=== PATIENT | female | born 1960 | race Caucasian/White ===

== ENCOUNTER 2016-04-06 17:12 | Emergency (ER) | payer BC ==
--- OUTSIDE RECORDS SUMMARY | 2016-04-06 18:37 | XMS REPORT | Continuity of Care Document ---
:1960 Author Organization [facility] ([facility]) Address [place] [address] Phone [phone] Care Team Providers Name Role Phone Eufemia Schimd Primary Care Provider [phone] Source Comments This disclosure is being made pursuant to the Care Everywhere program, applicable federal and state laws, and may not contain all informaitonavailable regarding this patient.[facility] ([facility]) Active Allergies and Adverse Reactions Allergen Noted Date Severity Reactions Comments Adhesive 06/14/2014 OTHER Modafinil 11/26/2011 Urticaria (Hives) Sulfadoxine Urticaria (Hives) Current Medications Prescription Sig. Disp. Refills Start Date End Date Status escitalopram (LEXAPRO) Take 40 mg by Active 20 mg tablet mouth daily. FLAXSEED OIL PO Take 3,600 Units Active by mouth 2 times daily. cholecalciferol Take 2,000 Units Active (VITAMIN D3) 2,000 unit by mouth daily. tablet Docusate Sodium 100 mg Take 100 mg by Active Tab mouth 3 times daily. multivitamin tablet Take 1 Tab by Active mouth daily. CALCIUM CARBONATE Take 2 Tabs by Active (CORAL CALCIUM PO) mouth 2 times daily. gabapentin 600 mg Take 1,200 mg by Active tablet mouth 2 times daily. Take 1200 ng in AM and 600 mg at 2 PM and 600 mg at 6 PM mirabegron (MYRBETRIQ) Take 1 Tab by 30 Tab 11 06/24/2014 Active 25 mg XR tablet mouth daily. May increase to 50 mg (2 tab) daily if needed after 1 week. Indications: BLADDER HYPERACTIVITY, URINARY URGENCY TECFIDERA 240 mg XR 11/02/2014 Active capsule Gauze Bandage 4 X 4 " 4x4 drain sponge 60 Each 6 01/11/2015 Active spge topiramate 25 mg tablet 02/10/2015 Active carBAMazepine (TEGretol Take 100 mg by Active XR) 100 mg SR tablet mouth 2 times daily. HYDROcodone-acetaminoph Take 1-2 tablets 30 tablet 0 07/22/2015 Active en 5-325 mg per tablet by mouth every 4 hours as needed. OTHER Please dispense 8 Each 11 08/05/2015 Active 4-8 leg bag extension tubing per month. Dx: urinary retention, chronic SPTDuration: lifetimeRefills: 11 nitrofurantoin Take 100 mg by Active (MACROBID) 100 mg mouth daily. capsule gentamicin 0.04% Irrigate 60 mL by 500 mL 11 12/15/2015 Active irrigation solution irrigation daily. OTHER Tysarvi 300 MG Active taken every 4 weeks. Drainage Bag misc Tillman catheter 20 Each 11 12/26/2015 Active leg drainage bag and overnight large drainage bag Active Problems Problem Noted Date Chronic retention of urine 06/02/2015 Multiple sclerosis 06/02/2015 Recurrent UTI 04/13/2013 Neurogenic bladder 04/13/2013 Spasticity 12/04/2011 Resolved Problems Problem Noted Date Resolved Date Gait instability 06/12/2013 06/12/2013 Most Recent Encounters Date Type Specialty Providers Description 03/08/2016 Office Visit Urology Wendy Navarro MD Subj: Upcoming Appt Reminder 01/13/2016 Telephone Urology Wendy Navarro MD Dx: Urinary retention (Primary Dx) Social History Tobacco Use Types Packs/Day Years Used Date Never Smoker Smokeless Tobacco: Never Used Tobacco Cessation:Counseling Given: Yes Comments: Alcohol Use Drinks/Week oz/Week Comments No Last Filed Vital Signs Vital Sign Reading Time Taken Blood Pressure 86/60 12/15/2015 3:01 PM CDT Pulse 76 12/15/2015 3:01 PM CDT Temperature 35.8 C (96.4 F) 12/15/2015 3:01 PM CDT Respiratory Rate 18 07/22/2015 4:00 PM CDT Height 1.753 m (5' 9") 07/22/2015 9:00 AM CDT Weight 68.04 kg (150 lb) 07/22/2015 9:00 AM CDT Body Mass Index 22.14 07/22/2015 9:00 AM CDT Oxygen Saturation 96% 07/22/2015 2:45 PM CDT Plan of Care Date Type Specialty Providers Description 04/12/2016 Appointment Radiology Subj: Appointment Rescheduled 04/12/2016 Appointment Urology Wendy Navarro MD Subj: Appointment [address] [facility] [place] [address] [phone] (Fax) 05/31/2016 Appointment Neurosurgery Heather Long MD [address] [place] [address] [phone] (Fax) Subj: Appointment Luzma Desai ARNP [address] [place] [address] [phone] (Fax) Scheduled Health Maintenance Due Date Last Done Comments HCV Screening 1960 Hepatitis B Vaccine (1 of 3 - Primary Series) 1960 Tdap Vaccine 09/02/1971 Lipid Disorder Screening 1978 MMR Vaccine 1978 Td Vaccine 1978 Cervical Cancer Screening 1990 Mammogram 2000 Colonoscopy 2010 Influenza Vaccine: Seasonal (#1) 09/26/2015 Results from Last 3 Months Not on file
--- NOTE | 2016-04-06 18:42 | ERNOTE ---
Medical Problem HPI - Narrative Date of Service: 04/06/16 - General Chief Complaint: General Assessment Time Seen by Provider: 04/06/16 18:30 Source: patient, RN notes reviewed Exam Limitations: no limitations - Immun/Allergies/Home Medications Immunizations: IMMUNIZATION HX Immunizations Up to Date Yes History of Influenza Vaccine No Hx Pneumococcal Vaccination No Allergies/Adverse Reactions: Allergies modafinil [From Provigil] Allergy (Intermediate, Verified 04/06/16 17:55) Hives Sulfa (Sulfonamide Antibiotics) [Sulfa(Sulfonamide Antibiotics)] Allergy (Mild, Verified 04/06/16 17:55) Hives Home Medications: HOME MEDICATIONS Baclofen 20 mg PO TID PRN 12/25/12 [Last Taken 05/01/15 08:00] Escitalopram Oxalate [Lexapro] 40 mg PO DAILY 12/25/12 [Last Taken 05/01/15 08: 00] Flaxseed Oil [Flax Oil] 3,600 mg PO BID 12/25/12 [Last Taken 05/01/15 08:00] HYDROcodone/ACETAMINOPHEN [[place] 5-325] 1 each PO Q4H PRN #30 tablet 04/20/14 [ Last Taken 11/15/15 23:00 2 tab] Mirabegron [Myrbetriq] 25 mg PO BID 07/11/14 [Last Taken 05/01/15 08:00] Gabapentin [Neurontin] 1,200 mg PO BID 07/13/14 [Last Taken 05/01/15 08:00] Topiramate [Topamax] 25 mg PO BID #0 04/28/15 [Last Taken 05/01/15 08:00] Calcium Carb&Cit/Mag12/Vit D3 [Calcium 500 mg Tablet] 1 each PO BID 08/25/15 [ Last Taken Unknown] Multivitamin [One Daily Essential] 1 each PO DAILY 08/25/15 [Last Taken Unknown] Cholecalciferol [Vitamin D] 5,000 unit PO DAILY 08/26/15 [Last Taken Unknown] Oxybutynin Chloride [Ditropan Xl] 10 mg PO PRN PRN 11/16/15 [Last Taken Unknown] Natalizumab [Tysabri (NATALIZUMAB)] 300 mg IV 04/06/16 [Last Taken Unknown] - History of Present History Narrative: Meliza is a 55 year old female who presents to the ED for a headache and body aches that began during the night last night. She took [place] during the night with some improvement. She reports that her is sick with a cough. She denies any associated symptoms. She is wheelchair bound d/t MS. Review of Systems - Review of Systems Constitutional: Present: fatigue, malaise. Absent: fever, chills EYE: Present: no symptoms reported ENT: Absent: ear pain, nose congestion, sore throat Respiratory: Absent: shortness of breath, cough Cardiology: Absent: chest pain, edema Gastrointestinal/Abdominal: Absent: nausea, vomiting, diarrhea Genitourinary: Present: no symptoms reported Musculoskeletal: Present: muscle pain, joint pain Skin: Absent: rash, lesions Neurological: Present: headache. Absent: dizziness/light-headedness Endocrine: Present: no symptoms reported Hematologic/Lymphatic: Present: no symptoms reported Psych: Present: no symptoms reported - Patient's Past Medical History Patient History - Medical: Anxiety, Depression, GERD, UTI'S, Other - Multiple Sclerosis Patient History - Cardiac/Respiratory: No pertinent hx Patient History - Cancer: No Hx of Cancer Patient History - Surgical Procedures: Colonoscopy, Hysterectomy Patient History - Other: None - Family History Mother Family History - Medical: Alzheimer's Disease, Seizures Family History - Cardiac/Respiratory: Hypertension Father Family History - Medical: Family History - Cardiac/Respiratory: Asthma - Social History Living Situations: spouse Abuse History: No History of abuse Psych History: Hx of Anxiety, Hx of Depression, Current tx/ever been on anti- depressants or anti-anxiety meds Smoking Status: Never smoker Alcohol Use: none Drug Use: none - Immunizations Immunizations Up to Date: Yes Hx Pneumococcal Vaccination: No History of Influenza Vaccine: No Physical Exam - Physical Exam General Appearance: Present: wd/wn, alert, no apparent distress, other - wheelchair bound Eye Exam: Normal inspection: bilateral Ears, Nose, Throat: Present: normal ENT inspection, hearing grossly normal, normal pharynx Neck: Present: normal inspection, nontender, supple Respiratory: Present: no respiratory distress, normal breath sounds, no accessory muscle use, lungs clear Cardiovascular/Chest: Present: regular rate, rhythm, no murmur Gastrointestinal/Abdominal: Present: nontender, nondistended, soft Extremity Exam: Present: normal inspection, non-tender, no edema Neurological Exam: Present: alert, oriented, normal mood/affect Skin Exam: Present: normal color, warm/dry ED Progress - Results and Orders Patient's Lab Results:: I have reviewed the patient's lab results. - Vital Signs Patient's Vital Signs:: I have reviewed the patient's vital signs. Vital Signs: Vital Signs 04/06/16 17:46 Temperature 36.0 C L Pulse Rate 85 Respiratory 16 Rate Blood Pressure 91/68 O2 Sat by Pulse 98 Oximetry - Progress/Reassessment Chief Complaint: General Assessment Progress:: Unchanged Progress Note-Subjective: Labwork unremarkable, suspect viral syndrome vs. MS exacerbation Departure - Departure Clinical Impression: Body aches, Malaise and fatigue, Multiple sclerosis, primary chronic progressive Disposition: Home Follow Up Needed Condition: Stable Additional Instructions: Continue your routine medications Follow up as needed Referrals: Eufemia Schmid MD [Primary Care Provider] -
[2016-04-06 18:57] LABS: Hematocrit 40.7 % (37.0-47.0); Hemoglobin 13.5 gm/dL (12.5-16.0); Mean Cell Volume 88.9 fl (78-100); Mean Corpuscular Hemoglobin 29.5 pg (27-31); Mean Corpuscular Hgb Conc 33.2 g/dl (32-36); Mean Platelet Volume 9.1 fl (6.0-9.5); Neutrophil # 2.5 K/mm3 (1.3-6.0); Neutrophil % 49.8 % (42-75.0); Platelet Count 281 K/mm3 (150-450); Red Blood Count 4.58 M/mm3 (4.2-5.4); Red Cell Distribution Width 13.3 % (11.5-14.0)
[2016-04-06 19:24] LABS: Albumin * 3.8 gm/dl (3.4-5.0); Anion Gap 9.7 mmol/L (6.8-13.8); BUN/Creatinine Ratio 28.3 (9.0-21.6); Bilirubin, Total 0.3 mg/dL (0.0-1.1); Ca. Corrected For Albumin 9.2 mg/dL (8.4-10.2); Calcium * 9.4 mg/dL (7.9-10.9); Carbon Dioxide 31.9 mmol/L (24-32.6); Potassium 3.6 mmol/L (3.4-4.6); Total Protein 6.7 gm/dL (6.2-8.2)
[2016-04-06 20:12] VITALS: BP 119/69
== END 2016-04-06 20:14 | disposition home or self-care (01) ==
LOC: ER 17:12
DX: G35 Multiple sclerosis (principal); R53.81 Other malaise; R53.83 Other fatigue; R52 Pain, unspecified

== ENCOUNTER 2016-05-30 12:17 | Emergency (ER) | payer BC ==
[2016-05-30 12:29] VITALS: BP 110/72
[2016-05-30] MEDS ORDERED: PROMETHAZINE HCL 50 MG/ML AMPUL IM ONE ×2 (13:03→13:06)
[2016-05-30] MEDS ORDERED: MEPERIDINE HCL/PF 75 MG/ML SYRG IM ONE (13:03)
--- NOTE | 2016-05-30 13:04 | ERNOTE ---
ER Female HPI Date of Service: 05/30/16 Stated Complaint: UTI Presenting Symptoms: other - Hematuria Time Seen by Provider: 05/30/16 12:53 Source: patient, family, RN notes reviewed Exam Limitations: no limitations Immunizations: IMMUNIZATION HX Immunizations Up to Date Yes History of Influenza Vaccine No Hx Pneumococcal Vaccination No Allergies/Adverse Reactions: Allergies modafinil [From Provigil] Allergy (Intermediate, Verified 04/06/16 17:55) Hives Sulfa (Sulfonamide Antibiotics) [Sulfa(Sulfonamide Antibiotics)] Allergy (Mild, Verified 04/06/16 17:55) Hives Home Medications: HOME MEDICATIONS Baclofen 20 mg PO TID PRN 12/25/12 [Last Taken 05/01/15 08:00] Escitalopram Oxalate [Lexapro] 40 mg PO DAILY 12/25/12 [Last Taken 05/01/15 08: 00] Flaxseed Oil [Flax Oil] 3,600 mg PO BID 12/25/12 [Last Taken 05/01/15 08:00] HYDROcodone/ACETAMINOPHEN [[place] 5-325] 1 each PO Q4H PRN #30 tablet 04/20/14 [ Last Taken 11/15/15 23:00 2 tab] Mirabegron [Myrbetriq] 25 mg PO BID 07/11/14 [Last Taken 05/01/15 08:00] Gabapentin [Neurontin] 1,200 mg PO BID 07/13/14 [Last Taken 05/01/15 08:00] Topiramate [Topamax] 25 mg PO BID #0 04/28/15 [Last Taken 05/01/15 08:00] Calcium/Magnesium/Vit D3 [Calcium 500 mg Tablet] 1 each PO BID 08/25/15 [Last Taken Unknown] Multivitamin [One Daily Essential] 1 each PO DAILY 08/25/15 [Last Taken Unknown] Cholecalciferol [Vitamin D] 5,000 unit PO DAILY 08/26/15 [Last Taken Unknown] Oxybutynin Chloride [Ditropan Xl] 10 mg PO PRN PRN 11/16/15 [Last Taken Unknown] Natalizumab [Tysabri (NATALIZUMAB)] 300 mg IV 04/06/16 [Last Taken Unknown] - History of Present Illness Narrative: 55 y/o female brought to the ED in her wheelchair by her for hematuria. She noticed a lot of blood in her urine last evening. She has been on Cipro for 5 days for a UTI. She has a suprapubic catheter that was due to be changed today. Her culture grew pseudomonas that was sensitive to the Cipro. She is having pain in her right flank region. She reports that her urine was damaris colored this morning without any visible blood. She denies any other symptoms. Prior Abdominal Problems: Present: similar symptoms Associated Symptoms: Absent: fever/chills, nausea, vomiting, abdominal pain Prior Treatment: Present: treated by physician, currently on antibiotics Review of Systems - Review of Systems Constitutional: Present: fatigue, malaise. Absent: fever, chills EYE: Present: no symptoms reported ENT: Present: no symptoms reported Respiratory: Present: no symptoms reported Cardiology: Present: no symptoms reported Gastrointestinal/Abdominal: Absent: nausea, vomiting, abdominal pain, eating less, drinking less Genitourinary: Present: hematuria. Absent: decreased urinary output Musculoskeletal: Present: back pain, muscle pain Skin: Absent: rash, lesions, lumps Neurological: Absent: headache, dizziness/light-headedness Endocrine: Present: no symptoms reported Hematologic/Lymphatic: Present: no symptoms reported Psych: Present: no symptoms reported - Patient's Past Medical History Patient History - Medical: Anxiety, Depression, GERD, UTI'S, Other Patient History - Cardiac/Respiratory: No pertinent hx Patient History - Cancer: No Hx of Cancer Patient History - Surgical Procedures: Colonoscopy, Hysterectomy Patient History - Other: None - Family History Mother Family History - Medical: Alzheimer's Disease, Seizures Family History - Cardiac/Respiratory: Hypertension Father Family History - Medical: Family History - Cardiac/Respiratory: Asthma - Social History Living Situations: spouse Abuse History: No History of abuse Psych History: Hx of Anxiety, Hx of Depression, Current tx/ever been on anti- depressants or anti-anxiety meds Alcohol Use: none Drug Use: none - Immunizations Immunizations Up to Date: Yes Hx Pneumococcal Vaccination: No History of Influenza Vaccine: No Physical Exam - Physical Exam General Appearance: Present: wd/wn, alert, no apparent distress, other - appears uncomfortable Respiratory: Present: no respiratory distress, normal breath sounds, no accessory muscle use, lungs clear Cardiovascular/Chest: Present: regular rate, rhythm, no murmur, normal peripheral pulses Gastrointestinal/Abdominal: Present: normal bowel sounds, nondistended, soft Back Exam: Present: CVA tenderness (R). Absent: CVA tenderness (L) Neurological Exam: Present: alert, oriented, normal mood/affect Skin Exam: Present: normal color, warm/dry ED Progress - Results and Orders Patient's Lab Results:: I have reviewed the patient's lab results. - Vital Signs Patient's Vital Signs:: I have reviewed the patient's vital signs. Vital Signs: Vital Signs 05/30/16 12:23 Temperature 36.4 C L Pulse Rate 85 Respiratory 16 Rate Blood Pressure 110/72 O2 Sat by Pulse 98 Oximetry - Progress/Reassessment Chief Complaint: Genitourinary Problem Progress:: Improved Plan - Plan Plan: Pain improved with Demerol and Phenergan. UA remains abnormal, but as catheter is due to be changed today I contacted lab to cancel the culture. Dr. Schmid' s office contacted regarding outpatient order to repeat the urine when the catheter is changed later today or tomorrow. Patient to continue Cipro for now. Departure Clinical Impression: UTI (urinary tract infection) due to urinary indwelling catheter Qualifiers: Indwelling urinary catheter type: cystostomy catheter Encounter type: sequela Qualified Code(s): T83.510S - Infection and inflammatory reaction due to cystostomy catheter, sequela - Departure Disposition: Home Follow Up Needed Condition: Stable Instructions: Catheter-Associated Urinary Tract Infection FAQs - WALKER Additional Instructions: Continue Cipro for now Bring in new urine sample when catheter is changed Referrals: Eufemia Schmid MD [Primary Care Provider] -
[2016-05-30] MEDS ORDERED: MEPERIDINE HCL/PF 75 MG/ML SYRG ONE (13:06)
--- OUTSIDE RECORDS SUMMARY | 2016-05-30 13:11 | XMS REPORT | Continuity of Care Document ---
:1960 Author Organization [facility] ([facility]) Address [place] [address] Phone [phone] Care Team Providers Name Role Phone Eufemia Schmid Primary Care Provider [phone] Source Comments This disclosure is being made pursuant to the Care Everywhere program, applicable federal and state laws, and may not contain all informaitonavailable regarding this patient.[facility] ([facility]) Active Allergies and Adverse Reactions Allergen Noted Date Severity Reactions Comments Adhesive 06/14/2014 OTHER Fosfomycin Tromethamine 04/30/2016 OTHER Causes GI upset Modafinil 11/26/2011 Urticaria (Hives) Provigil Sulfadoxine Urticaria (Hives) Current Medications Prescription Sig. Disp. Refills Start Date End Date Status escitalopram Take 40 mg by mouth Active (LEXAPRO) 20 mg daily. tablet FLAXSEED OIL PO Take 3,600 Units by Active mouth 2 times daily. cholecalciferol Take 5,000 Units by Active (VITAMIN D3) 2,000 mouth daily. unit tablet multivitamin tablet Take 1 Tab by mouth Active daily. CALCIUM CARBONATE Take 2 Tabs by Active (CORAL CALCIUM PO) mouth 2 times daily. gabapentin 600 mg Take 1,200 mg by Active tablet mouth 2 times daily. Take 1200 ng in AM and 600 mg at 2 PM and 600 mg at 6 PM mirabegron Take 1 Tab by mouth 30 Tab 11 06/24/2014 Active (MYRBETRIQ) 25 mg XR daily. May increase tablet to 50 mg (2 tab) daily if needed after 1 week. Indications: BLADDER HYPERACTIVITY, URINARY URGENCY Gauze Bandage 4 X 4 " 4x4 drain sponge 60 Each 6 01/11/2015 Active spge topiramate 25 mg 02/10/2015 Active tablet OTHER Please dispense 4-8 8 Each 11 08/05/2015 Active leg bag extension tubing per month. Dx: urinary retention, chronic SPTDuration: lifetimeRefills: 11 OTHER Tysarvi 300 MG Active taken every 4 weeks. Drainage Bag misc Tillman catheter leg 20 Each 11 12/26/2015 Active drainage bag and overnight large drainage bag vitamin B complex Take 1 tablet by Active tablet mouth daily. baclofen PO Patient has a Active baclofen pump HYDROcodone-acetamino Take 1-2 tablets by 30 tablet 0 04/16/2016 Active phen 5-325 mg per mouth every 6 hours tablet as needed for Pain. Do not take more than 10 tablets in a 24 hour period. Do not take Tylenol or any other medications containing acetaminophen while using thismedication. gentamicin 0.04% Irrigate 60 mL by 500 mL 11 05/25/2016 Active irrigation solution irrigation daily. Active Problems Problem Noted Date Chronic retention of urine 06/02/2015 Multiple sclerosis 06/02/2015 Recurrent UTI 04/13/2013 Neurogenic bladder 04/13/2013 Spasticity 12/04/2011 Resolved Problems Problem Noted Date Resolved Date Gait instability 06/12/2013 06/12/2013 Most Recent Encounters Date Type Specialty Providers Description 05/25/2016 Refill Urology Wendy Navarro Dx: Marco Carpenter MD bladder (Primary Dx) 05/23/2016 Orders/Notes Neurosurgery Luzma Desai ARNP 05/22/2016 Office Visit Urology Wendy Navarro Subj: Appointment MD aPuline Scheduled Headings, JOSE ALBERTO Ziegler 04/25/2016 Telephone Urology Wendy Navarro Chief Comp: Shawn Carpenter MD 04/18/2016 Telephone Urology Wendy Navarro Chief Comp: Patient MD Pauline Concern 04/16/2016 Hospital Encounter General Surgery Wendy Navarro Dx: Marco Carpenter MD bladder (Primary Dx) 04/16/2016 Surgery Urology Wendy Navarro BOTOX INJECTION INTO MD Pauline BLADDER 04/13/2016 Anesthesia Event Urology Seble Reynoso MD 04/12/2016 Office Visit Urology Wendy Navarro Dx: Recurrent UTI MD Pauline (Primary Dx) 04/12/2016 Hospital Encounter Radiology AbuJossie Liu Dx: Marco Krueger MD bladder 03/08/2016 Office Visit Urology Wendy Navarro Subj: Upcoming Appt MD Pauline Reminder Social History Tobacco Use Types Packs/Day Years Used Date Never Smoker Smokeless Tobacco: Never Used Tobacco Cessation:Counseling Given: Yes Comments: Alcohol Use Drinks/Week oz/Week Comments No Last Filed Vital Signs Vital Sign [place] Time Taken Blood Pressure 93/64 04/16/2016 2:30 PM ARCHITECTURAL DRAFTSMAN Pulse 87 04/16/2016 10:04 AM ARCHITECTURAL DRAFTSMAN Temperature 37 C (98.6 F) 04/16/2016 1:15 PM ARCHITECTURAL DRAFTSMAN Respiratory Rate 18 07/22/2015 4:00 PM CDT Height 1.753 m (5' 9") 04/16/2016 10:04 AM ARCHITECTURAL DRAFTSMAN Weight 68.04 kg (150 lb) 04/16/2016 10:04 AM ARCHITECTURAL DRAFTSMAN Body Mass Index 22.14 04/16/2016 10:04 AM ARCHITECTURAL DRAFTSMAN Oxygen Saturation 99% 04/16/2016 1:30 PM ARCHITECTURAL DRAFTSMAN Plan of Care Date Type Specialty Providers Description 05/31/2016 Appointment Heather Zuñiga MD [address] [place] [phone] (Fax) Subj: Upcoming Appt Luzma Desai ARNP [address] [place] [address] [phone] (Fax) Reminder 06/05/2016 Appointment Urology Wendy Navarro MD [address] [place] [address] [phone] (Fax) Subj: Appointment Yue Andersen ARNP [address] [place] [address] [phone] (Fax) Rescheduled 06/05/2016 Appointment Luzma Kim ARNP [address] [place] [address] [phone] (Fax) Subj: Appointment Michael Robert MD [address] [place] [phone] (Fax) Scheduled Health Maintenance Due Date Last Done Comments HCV Screening 1960 Hepatitis B Vaccine (1 of 3 - Primary Series) 1960 Tdap Vaccine 09/02/1971 Lipid Disorder Screening 1978 MMR Vaccine 1978 Td Vaccine 1978 Cervical Cancer Screening 1990 Mammogram 2000 Colonoscopy 2010 Influenza Vaccine: Seasonal Completed Procedures from Last 3 Months Procedure Name Priority Date/Time Associated Diagnosis Comments CHANGE OF CYSTOSTOMY 04/16/2016 11:26 AM Neurogenic bladder TUBE SIMPLE ARCHITECTURAL DRAFTSMAN Case Notes NO GENTAMICIN BOTOX INJECTION INTO BLADDER 04/16/2016 11:26 AM ARCHITECTURAL DRAFTSMAN Neurogenic bladder Case Notes NO GENTAMICIN Results from Last 3 Months URINE CULTURE, ROUTINE AEROBIC (04/12/2016 12:27 PM) Component Value Range Quantitative Culture Multiple Organisms present suggesting improperly collected specimen(A) Specimen Culture - Urine, Ostomy US RETROPERITONEAL COMPLETE (04/12/2016 10:32 AM) Impressions Impression: 1. Stable right renal hyperechoic lesion. No hydronephrosis. 2. Incompletely evaluated decompressed urinary bladder with catheter in place. --- Final --- Narrative [facility] & [facility] Department of Radiology Ultrasound Division [address] [place] [address] ULTRASOUND REPORT NAME:KAUR ROMAN Date of Service: 04/12/2016 MRN NO.: [id number] Review Date: 04/12/2016 Patient's : 1960 Resident/Tech: wVannesa Robert Patient's Age: 55 years Referring MD:ENOC SRIVASTAVA Indication: h/o neurogenic bladder, Botox injectionNeurogenic bladder [N31.9]. Technique: Renal and bladder grayscale ultrasound. Findings: Kidney: + + + + + :Structure :Features:Right : Left : + + + + + :Kidney:Present/Absent:Present :Present : + + + + + ::Size (cm) :11.0 x 4.2 x 4.6:10.8 x 5.1 x 4.1: + + + + + ::Location:Normal: Normal : + + + + + ::Shape :Normal:Normal: + + + + + :Cortex:Echogenicity:Normal:Normal : + + + + + ::Thickness :Normal:Normal: + + + + + :Renal Pelvis::No hydronephrosis.:No hydronephrosis.: + + + + + ::: :: + + + + + :Ureters ::Normal. :Normal. : + + + + + + + + + + + :Right Kidney:Location:Size (cm):Echogenicity:Characteristics: + + + + + + :Lesion 1:right upper pole:0.5 x 0.5 x 0.5:hyperechoic :round: + + + + + + Urinary Bladder: Bladder with cath. Procedure Note Melvin, Incoming Imaging Results - [facility] Apr 12, 2016 2:29 PM [facility] & [facility] Department of Radiology Ultrasound Division [address] [place] [address] ULTRASOUND REPORT NAME: KAUR ROMAN Date of Service: 04/12/2016 MRN NO.: [id number] Review Date: 04/12/2016 Patient's : 1960 Resident/Tech: [id number] Roxann Robert Patient's Age: 55 years Referring MD: ENOC SRIVASTAVA Indication: h/o neurogenic bladder, Botox injectionNeurogenic bladder[N31.9]. Technique: Renal and bladder grayscale ultrasound. Findings: Kidney: + + + + + :Structure :Features : Right : Left : + + + + + :Kidney :Present/Absent:Present :Present : + + + + + : :Size (cm) :11.0 x 4.2 x 4.6 :10.8 x 5.1 x 4.1 : + + + + + : :Location :Normal :Normal : + + + + + : :Shape :Normal :Normal : + + + + + :Cortex :Echogenicity :Normal :Normal : + + + + + : :Thickness :Normal :Normal : + + + + + :Renal Pelvis: :No hydronephrosis.:No hydronephrosis.: + + + + + : : : : : + + + + + :Ureters : :Normal. :Normal. : + + + + + + + + + + + :Right Kidney:Location :Size (cm):Echogenicity:Characteristics: + + + + + + :Lesion 1 :right upper pole:0.5 x 0.5 x 0.5:hyperechoic :round: + + + + + + Urinary Bladder: Bladder with cath. IMPRESSION Impression: 1. Stable right renal hyperechoic lesion. No hydronephrosis. 2. Incompletely evaluated decompressed urinary bladder with catheter inplace. --- Final ---
[2016-05-30 13:19] LABS: Hematocrit 41.2 % (37.0-47.0); Hemoglobin 13.7 gm/dL (12.5-16.0); Mean Corpuscular Hemoglobin 29.3 pg (27-31); Mean Corpuscular Hgb Conc 33.3 g/dl (32-36); Mean Platelet Volume 9.1 fl (6.0-9.5); Neutrophil % 48.3 % (42-75.0); Platelet Count 272 K/mm3 (150-450); Red Blood Count 4.68 M/mm3 (4.2-5.4); Red Cell Distribution Width 13.9 % (11.5-14.0); White Blood Count 6.3 K/mm3 (4.0-10.5)
[2016-05-30 13:32] LABS: Albumin * 3.6 gm/dl (3.4-5.0); Anion Gap 9.1 mmol/L (6.8-13.8); BUN/Creatinine Ratio 27.9 (9.0-21.6); Bilirubin, Total 0.3 mg/dL (0.0-1.1); Ca. Corrected For Albumin 8.6 mg/dL (8.4-10.2); Calcium * 8.6 mg/dL (7.9-10.9); Carbon Dioxide 32.5 mmol/L (24-32.6); Potassium 3.6 mmol/L (3.4-4.6); Total Protein 6.5 gm/dL (6.2-8.2)
[2016-05-30 13:41] LABS: Urine Bilirubin Negative (NEGATIVE); Urine Blood 250 /ul (NEGATIVE); Urine Ketone Negative (NEGATIVE); Urine Protein 30 mg/dL (NEGATIVE); Urine Specific Gravity >=1.030 SP.GR. (1.005-1.010); Urine Urobilinogen Normal (NORMAL)
[2016-05-30 13:51] LABS: Urine Appearance Cloudy; Urine Color Yellow; Urine Nitrite Positive (NEGATIVE)
[2016-05-30 13:52] LABS: Urine Bacteria 1+; Urine WBC 25-50 /hpf (0-5)
== END 2016-05-30 14:30 | disposition home or self-care (01) ==
LOC: ER 12:17
DX: N39.0 Urinary tract infection, site not specified (principal); T83.510S Infection and inflammatory reaction due to cystostomy catheter, sequela

== ENCOUNTER 2016-06-02 05:27 | Emergency (ER) | payer BC ==
[2016-06-02] MEDS ORDERED: HYDROcodone/ACETAMINOPHEN 1 EACH TABLET PO ONE (06:16)
[2016-06-02] MEDS ORDERED: HYDROcodone/ACETAMINOPHEN 1 EACH TABLET ONE (06:22)
--- OUTSIDE RECORDS SUMMARY | 2016-06-02 06:26 | XMS REPORT | Continuity of Care Document ---
:1960 Author Organization [facility] ([facility]) Address [place] [address] Phone [phone] Care Team Providers Name Role Phone Eufemia Schmid Primary Care Provider [phone] Source Comments This disclosure is being made pursuant to the Care Everywhere program, applicable federal and state laws, and may not contain all informaitonavailable regarding this patient.[facility] ([facility]) Active Allergies and Adverse Reactions Allergen [...] Recent Encounters Date Type Specialty Providers Description 06/01/2016 Office Visit Urology Wendy Navarro Subj: Carissa Carpenter MD Rescheduled Yue Andersen ARNP 06/01/2016 Telephone Urology Wendy Navarro Chief Comp: Shawn Carpenter MD 05/31/2016 Office Visit Neurosurgery Heather Long, Subj: Carissa VALVERDE Canceled Luzma Desai ARNP 05/25/2016 Refill Urology Wendy Navarro Dx: Marco Carpenter MD bladder (Primary Dx) 05/23/2016 Orders/Notes Neurosurgery Luzma Desai ARNP 05/22/2016 Office Visit Urology Wendy Navarro Subj: Carissa Carpenter MD Scheduled Yue Andersen ARNP 04/25/2016 Telephone Urology Wendy Navarro Chief Comp: Shawn Carpenter MD 04/18/2016 Telephone Urology Wendy Navarro Chief Comp: Patient MD Pauline Concern 04/16/2016 Hospital Encounter General Surgery Wendy Navarro Dx: Neurogenic MD Pauline bladder (Primary Dx) 04/16/2016 Surgery Urology Wendy Navarro BOTOX INJECTION INTO MD Pauline BLADDER 04/13/2016 Anesthesia Event Urology Seble Reynoso MD 04/12/2016 Office Visit Urology Wendy Navarro Dx: Recurrent UTI MD Pauline (Primary Dx) 04/12/2016 Hospital Encounter Radiology Abu-YouJossie espitia Dx: Neurogenic MD Evans bladder 03/08/2016 Office Visit Urology Wendy Navarro Subj: Upcoming Appt MD Pauline Reminder Social History Tobacco Use Types Packs/Day Years Used Date Never Smoker Smokeless Tobacco: Never Used Tobacco Cessation:Counseling Given: Yes Comments: Alcohol Use Drinks/Week oz/Week Comments No Last Filed Vital Signs Vital Sign [place] Time Taken Blood Pressure 93/64 04/16/2016 2:30 PM DATA PROCESSING CLERK Pulse 87 04/16/2016 10:04 AM DATA PROCESSING CLERK Temperature 37 C (98.6 F) 04/16/2016 1:15 PM DATA PROCESSING CLERK Respiratory Rate 18 07/22/2015 4:00 PM CDT Height 1.753 m (5' 9") 04/16/2016 10:04 AM DATA PROCESSING CLERK Weight 68.04 kg (150 lb) 04/16/2016 10:04 AM DATA PROCESSING CLERK Body Mass Index 22.14 04/16/2016 10:04 AM DATA PROCESSING CLERK Oxygen Saturation 99% 04/16/2016 1:30 PM DATA PROCESSING CLERK Plan of Care Date Type Specialty Providers Description 06/05/2016 Appointment Urology Wendy Navarro MD [address] [place] [address] [phone] (Fax) Subj: Upcoming Appt Yue Andersen ARNP [address] [place] [address] [phone]) Reminder 06/05/2016 Appointment Neurosurgery Luzma Desai ARNP [address] [place] [address] [phone] (Fax) Subj: Upcoming Appt Michael Robert MD [address] [place] [address] [phone] (Fax) Reminder Health Maintenance Due Date Last Done Comments [...] 04/16/2016 11:26 AM Neurogenic bladder TUBE SIMPLE DATA PROCESSING CLERK Case Notes NO GENTAMICIN BOTOX INJECTION INTO BLADDER 04/16/2016 11:26 AM DATA PROCESSING CLERK Neurogenic bladder Case Notes NO GENTAMICIN Results [...] catheter in place. --- Final --- Narrative [facility] Department of Radiology Ultrasound Division [address] [place] [address] ULTRASOUND REPORT NAME:KAUR ROMAN Date of Service: 04/12/2016 MRN NO.: [id number] Review Date: 04/12/2016 Patient's : 1960 Resident/Tech: [id number] Roxann Robert Patient's Age: 55 years Referring MD:ENOC [...] Procedure Note Melvin, Incoming Imaging Results - [facility] Apr 12, 2016 2:29 PM [facility] Department of Radiology Ultrasound Division [address] [place] [address] ULTRASOUND REPORT NAME: KAUR ROMAN Date of Service: 04/12/2016 MRN NO.: [id number] Review Date: 04/12/2016 Patient's : 1960 Resident/Tech: [...]
[2016-06-02] MEDS ORDERED: PROMETHAZINE HCL 25 MG TABLET PO ONE (06:34)
--- NOTE | 2016-06-02 06:34 | ERNOTE ---
Abdominal HPI - Narrative Date of Service: 06/02/16 - also hematuria - General Chief Complaint: Abdominal Pain Time Seen by Provider: 06/02/16 05:59 Source: patient, family Exam Limitations: no limitations - Immun/Allergies/Home Medications Immunizatons: IMMUNIZATION HX Immunizations Up to Date Yes History of Influenza Vaccine No Hx Pneumococcal Vaccination No Allergies/Adverse Reactions: Allergies modafinil [From Provigil] Allergy (Intermediate, Verified 06/02/16 05:41) Hives Sulfa (Sulfonamide Antibiotics) [Sulfa(Sulfonamide Antibiotics)] Allergy (Mild, Verified 06/02/16 05:41) Hives Home Medications: HOME MEDICATIONS Baclofen 20 mg PO TID PRN 12/25/12 [Last Taken 05/01/15 08:00] Escitalopram Oxalate [Lexapro] 40 mg PO DAILY 12/25/12 [Last Taken 05/01/15 08: 00] Flaxseed Oil [Flax Oil] 3,600 mg PO BID 12/25/12 [Last Taken 05/01/15 08:00] HYDROcodone/ACETAMINOPHEN [[place] 5-325] 1 each PO Q4H PRN #30 tablet 04/20/14 [ Last Taken 11/15/15 23:00 2 tab] Mirabegron [Myrbetriq] 25 mg PO BID 07/11/14 [Last Taken 05/01/15 08:00] Gabapentin [Neurontin] 1,200 mg PO BID 07/13/14 [Last Taken 05/01/15 08:00] Topiramate [Topamax] 25 mg PO BID #0 04/28/15 [Last Taken 05/01/15 08:00] Calcium/Magnesium/Vit D3 [Calcium 500 mg Tablet] 1 each PO BID 08/25/15 [Last Taken Unknown] Multivitamin [One Daily Essential] 1 each PO DAILY 08/25/15 [Last Taken Unknown] Cholecalciferol [Vitamin D] 5,000 unit PO DAILY 08/26/15 [Last Taken Unknown] Natalizumab [Tysabri (NATALIZUMAB)] 300 mg IV DAILY 04/06/16 [Last Taken Unknown ] - History of Present Illness Narrative: Patient here for evaluation due to improper medicatons for uti . Date (Duration): 05/31/16 Time (Timing): 08:00 Timing: constant, getting worse, intermittent, resolved prior to arrival Quality: moderate Activities at Onset: none Modifying Factors - (Improves): Present: other - NOTHING really helps Modifying Factors - (Worsens): Present: lying down Associated Symptoms: Present: back pain Prior Abdominal Problems: Present: none, other - hx of chronic uti's Review of Systems - Review of Systems Constitutional: Present: weakness, decreased activity level. Absent: fever, chills, diaphoresis, fatigue, malaise EYE: Present: no symptoms reported ENT: Present: no symptoms reported Respiratory: Present: no symptoms reported Cardiology: Present: no symptoms reported Gastrointestinal/Abdominal: Present: no symptoms reported Genitourinary: Present: no symptoms reported, frequency, pain, hematuria - started on Saturday the 30 of may to worsen , decreased urinary output Musculoskeletal: Present: back pain Skin: Present: no symptoms reported Neurological: Present: seizure, weakness, numbness Endocrine: Present: no symptoms reported Hematologic/Lymphatic: Present: no symptoms reported Psych: Present: no symptoms reported All Other Systems: All systems neg except as marked - Narrative Narrative: pertinent history of MS and baclofen pain pump left ant abdomen - Patient's Past Medical History Patient History - Medical: Anxiety, Depression, GERD, UTI'S, Other Patient History - Cardiac/Respiratory: No pertinent hx Patient History - Cancer: No Hx of Cancer Patient History - Surgical Procedures: Colonoscopy, Hysterectomy Patient History - Other: None LMP (females 10-50): Menopausal - Family History Mother Family History - Medical: Alzheimer's Disease, Seizures Family History - Cardiac/Respiratory: Hypertension Father Family History - Medical: Family History - Cardiac/Respiratory: No pertinent hx, Asthma - Social History Living Situations: spouse Abuse History: No History of abuse Psych History: Hx of Anxiety, Hx of Depression, Current tx/ever been on anti- depressants or anti-anxiety meds Smoking Status: Never smoker Have you smoked in the past 12 months: No Do you dip or chew tobacco: No Alcohol Use: none Drug Use: none - Immunizations Immunizations Up to Date: Yes Hx Pneumococcal Vaccination: No History of Influenza Vaccine: No Physical Exam - Physical Exam Narrative: patient on stretcher, layin on right side, has pain on flank unable to lay flat for ct renal stone protocol General Appearance: Present: wd/wn, alert, no apparent distress Eye Exam: Normal inspection: bilateral, PERRL: bilateral Ears, Nose, Throat: Present: normal ENT inspection Neck: Present: normal inspection, nontender Respiratory: Present: no respiratory distress, normal breath sounds Cardiovascular/Chest: Present: regular rate, rhythm, no murmur Gastrointestinal/Abdominal: Present: normal bowel sounds Rectal Exam: Present: nontender, normal rectal tone, normal prostate Back Exam: Present: decreased range of motion, muscle spasm Extremity Exam: Present: other - notable contractures Neurological Exam: Present: alert, oriented, facial droop Skin Exam: Present: normal color Lymphatic Exam: Present: no adenopathy Pelvic Exam: Present: active bleeding ED Progress - Vital Signs Vital Signs: Vital Signs 06/02/16 06/02/16 05:28 05:50 Temperature 36.3 C L Pulse Rate 123 H 119 H Respiratory 18 18 Rate Blood Pressure 110/53 109/52 O2 Sat by Pulse 98 Oximetry - Progress/Reassessment Chief Complaint: Abdominal Pain Plan - Plan Plan: All labs and studies reviewed. Patient's pain is improving with hydrocodone. Ua appears improved, patient has new catheter, perhaps pain is improving. Departure - Departure Clinical Impression: UTI (urinary tract infection) Qualifiers: Urinary tract infection type: urethritis Qualified Code(s): N34.2 - Other urethritis Disposition: CH Condition: Good Instructions: Urinary Tract Infection, Adult, Ibcg-[id number]-Hamb, Flank Pain, Easy-to -Read Additional Instructions: Take your pain medication as prescrbided. Referrals: Eufemia Schmid MD [Primary Care Provider] -
[2016-06-02 06:38] LABS: Urine Bilirubin Negative (NEGATIVE); Urine Blood 50 /ul (NEGATIVE); Urine Ketone Negative (NEGATIVE); Urine Nitrite Negative (NEGATIVE); Urine Protein Negative (NEGATIVE); Urine Specific Gravity 1.015 SP.GR. (1.005-1.010); Urine Urobilinogen Normal (NORMAL); Urine pH 7.5 pH (5.0-7.0)
[2016-06-02 06:39] LABS: Urine Appearance Slightly Cloudy; Urine Color Pale Yellow
[2016-06-02] MEDS ORDERED: PROMETHAZINE HCL 25 MG TABLET ONE (06:43)
[2016-06-02 06:45] LABS: Urine Bacteria TRACE; Urine WBC 0-5 /hpf (0-5)
[2016-06-02 07:55] VITALS: BP 114/67
== END 2016-06-02 08:56 | disposition home or self-care (01) ==
LOC: ER 05:27
PROC: 0T2BX0Z Change Drainage Device in Bladder, External Approach (ICD-10-PCS; principal; 2016-06-02)
DX: N34.2 Other urethritis (principal); F41.8 Other specified anxiety disorders; K21.9 Gastro-esophageal reflux disease without esophagitis; Z87.440 Personal history of urinary (tract) infections

== ENCOUNTER 2017-01-22 13:38 | Emergency (ER) | payer BC ==
[2017-01-22] MEDS ORDERED: NORMAL SALINE 1,000 ML IV ONE (14:32)
[2017-01-22 14:45] LABS: Hematocrit 37.6 % (37.0-47.0); Hemoglobin 12.8 gm/dL (12.5-16.0); Mean Cell Volume 85.8 fl (78-100); Mean Corpuscular Hemoglobin 29.2 pg (27-31); Mean Platelet Volume 9.3 fl (6.0-9.5); Neutrophil # 1.6 K/mm3 (1.3-6.0); Neutrophil % 36.5 % (42-75.0); Platelet Count 252 K/mm3 (150-450); Red Blood Count 4.38 M/mm3 (4.2-5.4); Red Cell Distribution Width 14.6 % (11.5-14.0); White Blood Count 4.4 K/mm3 (4.0-10.5)
[2017-01-22 15:00] LABS: Albumin * 3.5 gm/dl (3.4-5.0); Anion Gap 9.9 mmol/L (6.8-13.8); BUN/Creatinine Ratio 26.1 (9.0-21.6); Bilirubin, Total 0.3 mg/dL (0.0-1.1); Ca. Corrected For Albumin 9.2 mg/dL (8.4-10.2); Calcium * 9.1 mg/dL (7.9-10.9); Carbon Dioxide 27.6 mmol/L (24-32.6); Potassium 3.5 mmol/L (3.4-4.6); Total Protein 6.4 gm/dL (6.2-8.2)
[2017-01-22 15:03] LABS: Magnesium 2.1 mg/dL (1.2-2.8)
[2017-01-22 15:09] LABS: Urine Bilirubin Negative (NEGATIVE); Urine Blood Negative /ul (NEGATIVE); Urine Ketone Negative (NEGATIVE); Urine Nitrite Negative (NEGATIVE); Urine Protein Negative (NEGATIVE); Urine Urobilinogen Normal (NORMAL)
--- NOTE | 2017-01-22 15:15 | ERNOTE ---
Medical Problem HPI - General Chief Complaint: General Assessment Time Seen by Provider: 01/22/17 13:49 Source: patient Exam Limitations: no limitations - Immun/Allergies/Home Medications Immunizations: IMMUNIZATION HX Immunizations Up to Date Yes History of Influenza Vaccine No Hx Pneumococcal Vaccination No Allergies/Adverse Reactions: Allergies modafinil [From Provigil] Allergy (Intermediate, Verified 01/22/17 13:44) Hives Sulfa (Sulfonamide Antibiotics) [Sulfa(Sulfonamide Antibiotics)] Allergy (Mild, Verified 01/22/17 13:44) Hives Home Medications: HOME MEDICATIONS Baclofen 20 mg PO TID PRN 12/25/12 [Last Taken 05/01/15 08:00] Escitalopram Oxalate [Lexapro] 40 mg PO DAILY 12/25/12 [Last Taken 05/01/15 08: 00] Flaxseed Oil [Flax Oil] 3,600 mg PO BID 12/25/12 [Last Taken 05/01/15 08:00] HYDROcodone/ACETAMINOPHEN [[place] 5-325] 1 each PO Q4H PRN #30 tablet 04/20/14 [ Last Taken 11/15/15 23:00 2 tab] Mirabegron [Myrbetriq] 25 mg PO BID 07/11/14 [Last Taken 05/01/15 08:00] Gabapentin [Neurontin] 1,200 mg PO BID 07/13/14 [Last Taken 05/01/15 08:00] Topiramate [Topamax] 25 mg PO BID #0 04/28/15 [Last Taken 05/01/15 08:00] Calcium/Magnesium/Vit D3 [Calcium 500 mg Tablet] 1 each PO BID 08/25/15 [Last Taken Unknown] Multivitamin [One Daily Essential] 1 each PO DAILY 08/25/15 [Last Taken Unknown] Cholecalciferol [Vitamin D] 5,000 unit PO DAILY 08/26/15 [Last Taken Unknown] Natalizumab [Tysabri (NATALIZUMAB)] 300 mg IV DAILY 04/06/16 [Last Taken Unknown ] - History of Present History Narrative: Patient states she's been feeling somewhat washed out for the last 24 hours. She feels as though she could be somewhat dehydrated as her urine output appears to be diminished. When she had her last infusion for her MS she stated subsequent to that is when she started to feel weaker than normal. Timing: constant Severity: moderate Review of Systems - Review of Systems Constitutional: Present: See HPI, weakness EYE: Present: no symptoms reported ENT: Present: no symptoms reported Respiratory: Present: no symptoms reported Cardiology: Present: no symptoms reported Gastrointestinal/Abdominal: Present: no symptoms reported Genitourinary: Present: decreased urinary output Musculoskeletal: Present: no symptoms reported Skin: Present: no symptoms reported Neurological: Present: no symptoms reported Endocrine: Present: no symptoms reported Hematologic/Lymphatic: Present: no symptoms reported Psych: Present: no symptoms reported - Patient's Past Medical History Patient History - Medical: Anxiety, Depression, GERD, UTI'S, Other Patient History - Cardiac/Respiratory: No pertinent hx Patient History - Cancer: No Hx of Cancer Patient History - Surgical Procedures: Colonoscopy, Hysterectomy Patient History - Other: None - Family History Mother Family History - Medical: Alzheimer's Disease, Seizures Family History - Cardiac/Respiratory: Hypertension Father Family History - Medical: Family History - Cardiac/Respiratory: No pertinent hx, Asthma - Social History Living Situations: home Abuse History: No History of abuse Psych History: Hx of Anxiety, Hx of Depression, Current tx/ever been on anti- depressants or anti-anxiety meds Alcohol Use: none Drug Use: none - Immunizations Immunizations Up to Date: Yes Hx Pneumococcal Vaccination: No History of Influenza Vaccine: No Physical Exam - Physical Exam General Appearance: Present: wd/wn, alert, no apparent distress Head Exam: Present: normal inspection Eye Exam: Normal inspection: bilateral, PERRL: bilateral Ears, Nose, Throat: Present: normal pharynx, dry mucous membranes Neck: Present: normal inspection, nontender Respiratory: Present: no respiratory distress, normal breath sounds, no accessory muscle use, chest nontender, lungs clear Cardiovascular/Chest: Present: regular rate, rhythm, no murmur, normal peripheral pulses Gastrointestinal/Abdominal: Present: normal bowel sounds, nontender, nondistended, soft, no organomegaly Rectal Exam: Present: deferred Back Exam: Present: normal inspection, normal range of motion Extremity Exam: Present: normal inspection, non-tender, no edema, normal range of motion Neurological Exam: Present: alert, oriented, normal mood/affect Skin Exam: Present: normal color, warm/dry Lymphatic Exam: Present: no adenopathy ED Progress - Results and Orders Patient's Lab Results:: I have reviewed the patient's lab results. - Vital Signs Patient's Vital Signs:: I have reviewed the patient's vital signs. Vital Signs: Vital Signs 01/22/17 01/22/17 13:40 14:59 Temperature 36.4 C L 36.3 C L Pulse Rate 84 79 Respiratory 12 16 Rate Blood Pressure 127/81 98/45 O2 Sat by Pulse 100 99 Oximetry - Progress/Reassessment Chief Complaint: General Assessment Progress:: Improved Plan - Plan Plan: The patient appeared to be behind in fluid somewhat and responded nicely to a liter of normal saline. Lab tests seem to indicate a viral syndrome as well and the patient was seizing long emergency department. She agrees to follow-up with her family physician as needed. Departure Clinical Impression: Hypovolemia, Viral syndrome - Departure Disposition: Home self-care Condition: Good Instructions: Viral Respiratory Infection, [id number]-Eg-Oamn, Dehydration, Adult, [id number] Referrals: Eufemia Schmid MD [Primary Care Provider] -
[2017-01-22 15:18] LABS: Urine Appearance Slightly Cloudy; Urine Bacteria TRACE; Urine Color Yellow; Urine RBC None Seen /hpf (0-5); Urine WBC 0-5 /hpf (0-5)
[2017-01-22 16:23] VITALS: BP 116/58
== END 2017-01-22 16:33 | disposition home or self-care (01) ==
LOC: ER 13:38
DX: E86.1 Hypovolemia (principal); B34.9 Viral infection, unspecified; Z87.440 Personal history of urinary (tract) infections; F41.9 Anxiety disorder, unspecified; F32.9 Major depressive disorder, single episode, unspecified; K21.9 Gastro-esophageal reflux disease without esophagitis

== ENCOUNTER 2018-04-05 03:09 | Observation (INO) ==
[2018-04-05] MEDS ORDERED: NORMAL SALINE 1,000 ML IV ONE (03:30)
[2018-04-05] MEDS ORDERED: ONDANSETRON HCL/PF 2 MG/ML VIAL IV ONE (03:32)
[2018-04-05 04:18] LABS: ALT 13 U/L (19-67); AST 17 U/L (0-48); Albumin * 3.5 gm/dl (3.4-5.0); Alkaline Phosphatase * 71 U/L (50-170); BUN/Creatinine Ratio 31.6 (9.0-21.6); Bilirubin, Total 0.4 mg/dL (0.0-1.1); Blood Urea Nitrogen 18 mg/dL (3-23); Ca. Corrected For Albumin 8.5 mg/dL (8.4-10.2); Calcium * 8.4 mg/dL (7.9-10.9); Carbon Dioxide 20.3 mmol/L (24-32.6); Chloride 111 mmol/L (97-106); Glucose * 143 mg/dL (70-110); Potassium 3.3 mmol/L (3.4-4.6); Sodium 146 mmol/L (132-142)
[2018-04-05 04:24] LABS: Urine Bilirubin Negative (NEGATIVE); Urine Blood 50 /ul (NEGATIVE); Urine Ketone Negative (NEGATIVE); Urine Nitrite Negative (NEGATIVE); Urine Protein Negative (NEGATIVE); Urine Specific Gravity 1.025 SP.GR. (1.005-1.010); Urine Urobilinogen Normal (NORMAL)
[2018-04-05 04:28] LABS: Amylase * 57 U/L (25-115); Lipase 177 U/L (73-393)
[2018-04-05 05:03] LABS: Hematocrit 41.2 % (37.0-47.0); Hemoglobin 13.3 gm/dL (12.5-16.0); Mean Corpuscular Hemoglobin 29.7 pg (27-31); Mean Corpuscular Hgb Conc 32.3 g/dl (32-36); Mean Platelet Volume 9.6 fl (8-12.5); Neutrophil # 6.7 K/mm3 (1.3-6.0); Neutrophil % 82.8 % (42-75.0); Platelet Count 213 K/mm3 (150-450); Red Blood Count 4.48 M/mm3 (4.2-5.4); Red Cell Distribution Width 14.5 % (11.5-14.0); White Blood Count 8.1 K/mm3 (4.0-10.5)
[2018-04-05 05:20] LABS: Urine Appearance Clear (CLEAR); Urine Bacteria TRACE; Urine Color Yellow; Urine RBC TRACE /hpf (0-5); Urine WBC TRACE /hpf (0-5)
--- NOTE | 2018-04-05 05:57 | ERNOTE ---
Medical Problem HPI - Narrative Date of Service: 04/05/18 - General Chief Complaint: Nausea/Vomiting Time Seen by Provider: 04/05/18 03:25 Source: patient Exam Limitations: no limitations - Immun/Allergies/Home Medications Immunizations: IMMUNIZATION HX Immunizations Up to Date Yes History of Influenza Vaccine No Hx Pneumococcal Vaccination No Allergies/Adverse Reactions: Allergies modafinil [From Provigil] Allergy (Intermediate, Verified 04/05/18 03:23) Hives adhesive Allergy (Mild, Verified 04/05/18 03:23) Other Rips off skin Sulfa (Sulfonamide Antibiotics) [Sulfa(Sulfonamide Antibiotics)] Allergy (Mild, Verified 04/05/18 03:23) Hives lactose Adverse Reaction (Verified 04/05/18 03:23) stomach issues Home Medications: HOME MEDICATIONS Baclofen 20 mg PO TID PRN 12/25/12 [Last Taken 05/01/15 08:00] Escitalopram Oxalate [Lexapro] 40 mg PO DAILY 12/25/12 [Last Taken 05/01/15 08:00] Mirabegron [Myrbetriq] 25 mg PO BID 07/11/14 [Last Taken 05/01/15 08:00] Gabapentin [Neurontin] 1,200 mg PO BID 07/13/14 [Last Taken 05/01/15 08:00] Topiramate [Topamax] 50 mg PO QAM #0 04/28/15 [Last Taken 05/01/15 08:00] Multivitamin [One Daily Essential] 1 ea PO DAILY 08/25/15 [Last Taken Unknown] Cholecalciferol [Vitamin D] 1,000 unit PO DAILY 08/26/15 [Last Taken Unknown] Calcium Carb/D3/Mag Aa Chelate [Coral Calcium Capsule] 600 mg PO BID 07/24/17 [Last Taken Unknown] Ibuprofen 800 mg PO TID PRN 07/24/17 [Last Taken Unknown] Topiramate [Topamax] 25 mg PO 1200,2100 07/25/17 [Last Taken Unknown] natalizumab 300 mg/15 mL intravenous solution 300 mg IV Q4W ml 09/09/17 [Last Taken Unknown] TENS unit and electrodes combo pack See Dose Instructions .ROUTE .MEDSUPPLY #1 ea 09/25/17 [Last Taken Unknown] hydrocodone 5 mg-acetaminophen 325 mg tablet See Rx Instructions PO QHS PRN #60 tab 01/03/18 [Last Taken Unknown] oxyCODONE HCL/ACETAMINOPHEN [Percocet 5 MG/325 MG] 1 tab PO TID PRN #20 tab 03/04/18 [Last Taken Unknown] Ciprofloxacin HCl [Cipro] 500 mg PO BID #20 tab 04/01/18 [Last Taken Unknown] Levofloxacin [Levaquin] 500 mg PO DAILY #10 tab 04/01/18 [Last Taken Unknown] - History of Present History Narrative: patient had onset of nausa and vomiting last evenig, hx of ms, recently has had several uti Timing: constant, getting worse Severity: moderate Modifying Factors - (Improves): Present: other - nothiing Modifying Factors - (Worsens): Present: eating Review of Systems - Review of Systems Constitutional: Present: See HPI, weakness, fatigue, malaise EYE: Present: no symptoms reported ENT: Present: no symptoms reported Respiratory: Present: no symptoms reported Cardiology: Present: no symptoms reported Gastrointestinal/Abdominal: Present: See HPI, nausea, vomiting, eating less, drinking less Genitourinary: Present: See HPI, decreased urinary output Musculoskeletal: Present: no symptoms reported Skin: Present: no symptoms reported Neurological: Present: no symptoms reported Endocrine: Present: no symptoms reported Hematologic/Lymphatic: Present: no symptoms reported Psych: Present: no symptoms reported Medical History (Last Reviewed 04/05/18 @ 03:23 by Marcy Helms RN) History of UTI (Acute) Trochanteric bursitis (Acute) Shoulder pain (Chronic) Shoulder impingement (Chronic) Scoliosis (Chronic) Neurogenic bladder (Chronic) H/O dysmenorrhea (Chronic) Multiple sclerosis (Chronic) Onset Date: 1992 Incomplete bladder emptying (Chronic) Hip pain (Chronic) GERD (gastroesophageal reflux disease) (Chronic) Frequent infections (Chronic) Merritt-Danlos syndrome (Chronic) Depression (Chronic) DDD (degenerative disc disease) (Chronic) Colon polyps (Acute) Onset Date: 12/20/10 [place] Anxiety (Chronic) Surgical History: Surgical History (Last Reviewed 04/05/18 @ 03:23 by Marcy Helms RN) H/O breast biopsy Onset Date: 2007 stereotactic core needle biopsy of the left breast w/benign findings S/P DANIELLE-BSO Onset Date: 02/26/[address]Staudte-Fibroids, MMR S/P colonoscopy Onset Date: 12/20/10 stereotactic core needle biopsy of the left breast w/benign findings Status post insertion of intrathecal baclofen pump Onset Date: 12/15/11 Family History: Family History (Last Reviewed 04/05/18 @ 03:23 by Marcy Helms, RN) Father , 79 COPD (chronic obstructive pulmonary disease) Hypertension Asthma Mother Hypertension Alzheimers disease Glaucoma Osteoporosis Grandmother Diabetes Social History: Preferred Language [place] Smoking Status Never smoker Abuse History No History of abuse,Hx-Community Resource Use Psych History Hx of Anxiety,Hx of Depression,Currently on Meds (Last Updated 03/24/18 @ 15:26 by Elidia Liz DNP) No Social History Section defined Physical Exam - Physical Exam General Appearance: Present: moderate distress, anxious Head Exam: Present: normal inspection, no evidence of injury Eye Exam: Normal inspection: bilateral, PERRL: bilateral, EOMI: bilateral Ears, Nose, Throat: Present: normal ENT inspection Neck: Present: normal inspection, nontender Respiratory: Present: no respiratory distress, normal breath sounds, no accessory muscle use, chest nontender, lungs clear Cardiovascular/Chest: Present: normal peripheral pulses, tachycardia Gastrointestinal/Abdominal: Present: normal bowel sounds, tenderness, distended Back Exam: Present: normal inspection, normal range of motion, no CVA tenderness, no vertebral tenderness Extremity Exam: Present: normal except - - bilateral upper and lower contractures, non-tender Neurological Exam: Present: alert, oriented, normal mood/affect, no motor/sensory deficits Skin Exam: Present: normal color Lymphatic Exam: Present: no adenopathy Progress - Date and Time Seen: Date and Time: 04/05/18 05:53 patient improved somewhat case discussed with dr simpson, to admit to observation - Results and Orders Patient's Lab Results:: I have reviewed the patient's lab results. - Vital Signs Patient's Vital Signs:: I have reviewed the patient's vital signs. Vital Signs: Vital Signs 04/05/18 03:21 04/05/18 03:49 Temperature 37.1 C Pulse Rate 132 H 126 H Respiratory Rate 15 16 Blood Pressure 96/50 84/53 L O2 Sat by Pulse Oximetry 96 94 - X-Ray X-Ray #1 X-Ray: abdomen - nsbgp Interpretation: Interp. by me - Progress/Reassessment Chief Complaint: Nausea/Vomiting Progress:: Improved - Transfer of Care Expected Disposition: Admit Plan - Plan Plan: to admit to observation Departure Clinical Impression: Multiple sclerosis, Malaise and fatigue, Generalized weakness, Nausea & vomiting - Departure Disposition: Still a patient Condition: Fair Referrals: Laurence Goldsmith MD [Primary Care Provider] -
[2018-04-05] MEDS ORDERED: HYDROcodone/ACETAMINOPHEN 1 EACH TABLET PO STA ×2 (05:58→07:45)
[2018-04-05] MEDS ORDERED: ONDANSETRON HCL/PF 2 MG/ML VIAL IV PRN ×3 (05:59→10:33)
[2018-04-05] MEDS: NORMAL SALINE 1,000 ML IV PRN ×3 (06:09→22:43)
--- NOTE | 2018-04-05 10:23 | HP ---
Chief Complaint - Chief Complaint Date of Service: 04/05/18 Time of Service: 09:00 Chief Complaint: Nausea and vomiting History of Present Illness: Meliza Rosado is a 57-year-old female patient who developed nausea and vomiting yesterday and presented to the emergency room early this morning because of an tract ability of the nausea and vomiting. She is evaluated in ER and found to be dry and needing more IV fluids and so she is admitted to observation stay. The ondansetron has been helpful somewhat she has not thrown up since admission but she continues to have nausea. She has a long-standing history of MS. She is wheelchair bound, has a indwelling Tillman catheter, and chronic pain in her right shoulder. She lies on her right shoulder almost exclusively and has increased pain because of that. She has been told by or thopedics they believe she has a torn rotator cuff. His been no change in bowel behavior. She's not had fever or chills. Medical History (Last Reviewed 04/05/18 @ 06:55 by Soham Alicea RN) History of UTI (Acute) Trochanteric bursitis (Acute) Shoulder pain (Chronic) Shoulder impingement (Chronic) Scoliosis (Chronic) Neurogenic bladder (Chronic) H/O dysmenorrhea (Chronic) Multiple sclerosis (Chronic) Onset Date: 1992 Incomplete bladder emptying (Chronic) Hip pain (Chronic) GERD (gastroesophageal reflux disease) (Chronic) Frequent infections (Chronic) Merritt-Danlos syndrome (Chronic) Depression (Chronic) DDD (degenerative disc disease) (Chronic) Colon polyps (Acute) Onset Date: 12/20/10 [place] Anxiety (Chronic) Surgical History: Surgical History (Last Reviewed 04/05/18 @ 06:56 by Soham Alicea RN) H/O breast biopsy Onset Date: 2007 stereotactic core needle biopsy of the left breast w/benign findings S/P DANIELLE-BSO Onset Date: 02/26/06 done by -Fibroids, MMR S/P colonoscopy Onset Date: 12/20/10 stereotactic core needle biopsy of the left breast w/benign findings Status post insertion of intrathecal baclofen pump Onset Date: 12/15/11 Family History: Family History (Last Reviewed 04/05/18 @ 06:56 by Soham Alicea RN) Father , 79 COPD (chronic obstructive pulmonary disease) Hypertension Asthma Mother Hypertension Alzheimers disease Glaucoma Osteoporosis Grandmother Diabetes Social History: Patient Lives/Resources Home Utilized Occupation disabled Preferred Language Kiswahili Do you have any sikhism or Yes: Confucianist cultural preference? Smoking Status Never smoker Have you smoked in the past 12 No months Do you dip or chew tobacco No Abuse History No History of abuse,Hx-Community Resource Use Psych History Hx of Anxiety,Hx of Depression,Currently on Meds (Last Updated 03/24/18 @ 15:26 by Elidia Liz DNP) No Social History Section defined Review Of Systems (GEN) - Review of Systems Generalized/Overall Review: Present: Weakness, Malaise EENTM: Present: No Symptoms Reported Respiratory: Present: No Symptoms Reported Cardiac: Present: No Symptoms Reported Abdominal: Present: Nausea, Vomiting, Abdominal Pain. Absent: Hematemesis, Constipation, Diarrhea, Melena, Bright blood from rectum, Other Genitourinary: Present: No Symptoms Reported, Other - Has a chronic indwelling Tillman catheter Musculoskeletal: Present: Joint Pain - Right shoulder, Other - Also has Merritt Danlos syndrome Neurological: Present: Depressed, Weakness - Both lower extremities, Pre- existing Deficit Skin: Present: No Symptoms Reported Endocrine: Present: No Symptoms Reported Misc: All systems neg except as marked Immunizations: IMMUNIZATION HX Immunizations Up to Date Yes History of Influenza Vaccine No Hx Pneumococcal Vaccination No Allergies/Adverse Reactions: Allergies Allergy/AdvReac Type Severity Reaction Status Date / Time modafinil [From Provigil] Allergy Intermediate Hives Verified 04/05/18 03:23 adhesive Allergy Mild Other Verified 04/05/18 03:23 Sulfa (Sulfonamide Allergy Mild Hives Verified 04/05/18 03:23 Antibiotics) [Sulfa(Sulfonamide Antibiotics)] lactose AdvReac stomach Verified 04/05/18 03:23 issues Home Medications: HOME MEDICATIONS Baclofen 20 mg PO TID PRN 12/25/12 [Last Taken 05/01/15 08:00] Escitalopram Oxalate [Lexapro] 40 mg PO DAILY 12/25/12 [Last Taken 05/01/15 08:00] Mirabegron [Myrbetriq] 25 mg PO BID 07/11/14 [Last Taken 05/01/15 08:00] Gabapentin [Neurontin] 1,200 mg PO BID 07/13/14 [Last Taken 05/01/15 08:00] Topiramate [Topamax] 50 mg PO QAM #0 04/28/15 [Last Taken 05/01/15 08:00] Multivitamin [One Daily Essential] 1 ea PO DAILY 08/25/15 [Last Taken Unknown] Cholecalciferol [Vitamin D] 1,000 unit PO DAILY 08/26/15 [Last Taken Unknown] Calcium Carb/D3/Mag Aa Chelate [Coral Calcium Capsule] 600 mg PO BID 07/24/17 [Last Taken Unknown] Topiramate [Topamax] 25 mg PO 1200,2100 07/25/17 [Last Taken Unknown] natalizumab 300 mg/15 mL intravenous solution 300 mg IV Q4W ml 09/09/17 [Last Taken Unknown] TENS unit and electrodes combo pack See Dose Instructions .ROUTE .MEDSUPPLY #1 ea 09/25/17 [Last Taken Unknown] Levofloxacin [Levaquin] 500 mg PO DAILY #10 tab 04/01/18 [Last Taken Unknown] HYDROcodone/ACETAMINOPHEN [Hydrocodone-Acetamin 5-325 mg] See Rx Instructions PO BID PRN 04/05/18 [Last Taken Unknown] Exam - Exam Vital Signs: Vital Signs - Last Taken Temp 37.6 C 04/05/18 06:45 Pulse 136 H 04/05/18 06:45 Resp 20 04/05/18 06:45 BP 95/61 04/05/18 06:45 Pulse Ox 91 L 04/05/18 06:45 Constitutional: Present: Alert, Oriented x3, Cooperative, Well developed, Well nourished, Moderate distress ENT Exam: Present: normal ENT inspection, hearing grossly normal, pharynx normal, TMs normal Eye Exam: bilateral eye: normal inspection, PERRL, EOMI Neck: Present: non-tender, full range of motion, supple, normal inspection, trachea midline, limited range of motion Back Exam: Present: normal inspection, no CVA tenderness, no vertebral tende rness Breasts: Present: Exam deferred Respiratory: Present: chest non-tender, lungs clear, normal breath sounds, no respiratory distress Cardiovascular/Chest: Present: normal peripheral pulses, no JVD, no murmur, no rub, tachycardia, edema Peripheral Pulses: carotid (R): 2+, carotid (L): 2+, radial (R): 2+, radial (L): 2+ Abdomen: Present: soft, nondistended, no rebound tenderness, no hepatospenomegaly, no masses, tender. Absent: Normal bowel sounds - Hyperactive bowel sounds, distended /Rectal: Present: Exam deferred Extremity: Present: normal range of motion, non-tender, normal inspection, lower extremity edema Skin Exam: Present: normal color Lymphatic: Present: no adenopathy Neurologic: Present: 911 telecommunicator II-XII nml as tested, motor weakness - Lower extremities, sensory deficit - Lower extremities Appearance: Present: appropriate appearance, appropriate insight, no memory impairment Eye contact: Present: cooperative, good eye contact, normal speech Thoughts: Present: normal thought pattern, no apparent hallucination Diagnostic Studies: Abnormal Lab Results 04/05/18 04/05/18 04/05/18 Range/Units 04:00 04:59 04:59 RDW 14.5 H (11.5-14.0) % Neutrophils % 82.8 H (42-75.0) % Lymphocytes % 7.5 L (20-51) % Eosinophils % 4.1 H (0.0-3.0) % Neutrophils # 6.7 H (1.3-6.0) K/mm3 Lymphocytes # 0.61 L (1.5-3.5) k/mm3 Sodium 146 H (132-142) mmol/L Plasma Sodium 147 H (130-142) mmol/L Potassium 3.3 L (3.4-4.6) mmol/L Chloride 111 H (97-106) mmol/L Carbon Dioxide 20.3 L (24-32.6) mmol/L Anion Gap 18.0 H (6.8-13.8) mmol/L BUN/Creatinine Ratio 31.6 H (9.0-21.6) Random Glucose 143 H (70-110) mg/dL ALT 13 L (19-67) U/L Total Protein 6.0 L (6.2-8.2) gm/dL Procalcitonin (0.05-0.50) ng/mL Urine Blood 50 H (NEGATIVE) /ul Ur Leukocyte Esterase 25 H (NEGATIVE) /ul Urine WBC Trace H (0-5) /hpf 04/05/18 Range/Units 04:59 RDW (11.5-14.0) % Neutrophils % (42-75.0) % Lymphocytes % (20-51) % Eosinophils % (0.0-3.0) % Neutrophils # (1.3-6.0) K/mm3 Lymphocytes # (1.5-3.5) k/mm3 Sodium (132-142) mmol/L Plasma Sodium (130-142) mmol/L Potassium (3.4-4.6) mmol/L Chloride (97-106) mmol/L Carbon Dioxide (24-32.6) mmol/L Anion Gap (6.8-13.8) mmol/L BUN/Creatinine Ratio (9.0-21.6) Random Glucose (70-110) mg/dL ALT (19-67) U/L Total Protein (6.2-8.2) gm/dL Procalcitonin Less than 0.05 L (0.05-0.50) ng/mL Urine Blood (NEGATIVE) /ul Ur Leukocyte Esterase (NEGATIVE) /ul Urine WBC (0-5) /hpf Laboratory Results WBC 8.1 K/mm3 (4.0-10.5) 04/05/18 04:59 RBC 4.48 M/mm3 (4.2-5.4) 04/05/18 04:59 Hgb 13.3 gm/dL (12.5-16.0) 04/05/18 04:59 Hct 41.2 % (37.0-47.0) 04/05/18 04:59 MCV 92.0 fl (78-100) 04/05/18 04:59 MCH 29.7 pg (27-31) 04/05/18 04:59 MCHC 32.3 g/dl (32-36) 04/05/18 04:59 RDW 14.5 % (11.5-14.0) H 04/05/18 04:59 Plt Count 213 K/mm3 (150-450) 04/05/18 04:59 MPV 9.6 fl (8-12.5) 04/05/18 04:59 Immature Gran % (Auto) 0.20 % (0.001-0.429) 04/05/18 04:59 Immature Gran # (Auto) 0.02 K/mm3 (0.000-0.0310) 04/05/18 04:59 Neutrophils % 82.8 % (42-75.0) H 04/05/18 04:59 Lymphocytes % 7.5 % (20-51) L 04/05/18 04:59 Monocytes % 4.9 % (0.0-9) 04/05/18 04:59 Eosinophils % 4.1 % (0.0-3.0) H 04/05/18 04:59 Basophils % 0.5 % (0.0-1.0) 04/05/18 04:59 Nucleated RBC % 0.0 k/mm3 (0-1) 04/05/18 04:59 Neutrophils # 6.7 K/mm3 (1.3-6.0) H 04/05/18 04:59 Lymphocytes # 0.61 k/mm3 (1.5-3.5) L 04/05/18 04:59 Monocytes # 0.4 k/mm3 (0.0-1.0) 04/05/18 04:59 Eosinophils # 0.3 k/mm3 (0.0-0.7) 04/05/18 04:59 Absolute Basophils 0.0 k/mm3 (0.0-0.1) 04/05/18 04:59 Sodium 146 mmol/L (132-142) H 04/05/18 04:59 Plasma Sodium 147 mmol/L (130-142) H 04/05/18 04:59 Potassium 3.3 mmol/L (3.4-4.6) L 04/05/18 04:59 Chloride 111 mmol/L (97-106) H 04/05/18 04:59 Carbon Dioxide 20.3 mmol/L (24-32.6) L 04/05/18 04:59 Anion Gap 18.0 mmol/L (6.8-13.8) H 04/05/18 04:59 BUN 18 mg/dL (3-23) 04/05/18 04:59 Creatinine 0.57 mg/dL (0.4-1.4) 04/05/18 04:59 Est GFR (Non-Af Amer) 116 mL/min (60-130) 04/05/18 04:59 BUN/Creatinine Ratio 31.6 (9.0-21.6) H 04/05/18 04:59 Random Glucose 143 mg/dL (70-110) H 04/05/18 04:59 Lactic Acid, Venous 1.3 mmol/L (0.4-2.0) 04/05/18 04:59 Calcium 8.4 mg/dL (7.9-10.9) 04/05/18 04:59 Calcium Adj for Albumin 8.5 mg/dL (8.4-10.2) 04/05/18 04:59 Total Bilirubin 0.4 mg/dL (0.0-1.1) 04/05/18 04:59 AST 17 U/L (0-48) 04/05/18 04:59 ALT 13 U/L (19-67) L 04/05/18 04:59 Alkaline Phosphatase 71 U/L (50-170) 04/05/18 04:59 C-Reactive Prot, Quant Less than 0.2 mg/dL (0.0-0.9) 04/05/18 04:59 Total Protein 6.0 gm/dL (6.2-8.2) L 04/05/18 04:59 Albumin 3.5 gm/dl (3.4-5.0) 04/05/18 04:59 Amylase 57 U/L (25-115) 04/05/18 04:59 Lipase 177 U/L (73-393) 04/05/18 04:59 Procalcitonin Less than 0.05 ng/mL (0.05-0.50) L 04/05/18 04:59 Urine Color Yellow 04/05/18 04:00 Urine Appearance Clear (CLEAR) 04/05/18 04:00 Urine pH 6.0 pH (5.0-7.0) 04/05/18 04:00 Ur Specific [place] 1.025 SP.GR. (1.005-1.010) 04/05/18 04:00 Urine Protein Negative mg/dL (NEGATIVE) 04/05/18 04:00 Urine Glucose (UA) Negative mg/dL (NEGATIVE) 04/05/18 04:00 Urine Ketones Negative mg/dL (NEGATIVE) 04/05/18 04:00 Urine Blood 50 /ul (NEGATIVE) H 04/05/18 04:00 Urine Nitrate Negative (NEGATIVE) 04/05/18 04:00 Urine Bilirubin Negative mg/dl (NEGATIVE) 04/05/18 04:00 Urine Urobilinogen Normal EU/dl (NORMAL) 04/05/18 04:00 Ur Leukocyte Esterase 25 /ul (NEGATIVE) H 04/05/18 04:00 Urine RBC Trace /hpf (0-5) 04/05/18 04:00 Urine WBC Trace /hpf (0-5) H 04/05/18 04:00 Ur Epithelial Cells None seen /hpf (0-5) 04/05/18 04:00 Urine Bacteria Trace (NONE) 04/05/18 04:00 Urine Culture Comments Culture to follow 04/05/18 04:00 Assessment/Plan - Narrative Narrative: 1. Continue IV fluids 2. Continue anti-emetics 3. Provide analgesic meds as needed 4. Diet as tolerated - Assessment/Plan (1) Nausea & vomiting Problem: Acute (2) Shoulder pain Problem: Chronic Qualifiers: (3) Neurogenic bladder Problem: Chronic (4) Multiple sclerosis Problem: Chronic (5) Merritt-Danlos syndrome Problem: Chronic (6) Depression Problem: Chronic Qualifiers: Depression Type: major depressive disorder Major depression recurrence: recurrent Active/Remission status: currently active Major depression episode severity: moderate Qualified Code(s): F33.1 - Major depressive disorder, recurrent, moderate
[2018-04-05] MEDS ORDERED: BACLOFEN 20 MG PO PRN (10:25)
[2018-04-05] MEDS ORDERED: BACLOFEN 10 MG TABLET PO PRN (10:40)
[2018-04-05] MEDS: HYDROcodone/ACETAMINOPHEN 1 EACH TABLET PO PRN ×2 (10:52→18:05)
[2018-04-05] MEDS: TOPIRAMATE 50 MG TABLET PO SCH ×3 (10:52→20:24)
[2018-04-05] MEDS ORDERED: NON-FORMULARY 1 DOSE DOSE (Topiramate [Topamax] 25 MG) PO SCH (12:00)
[2018-04-05] MEDS ORDERED: NORMAL SALINE 500 ML IV ONE (15:18)
[2018-04-05] MEDS: GABAPENTIN 600 MG TABLET PO SCH (20:23)
[2018-04-06] MEDS: HYDROcodone/ACETAMINOPHEN 1 EACH TABLET PO PRN ×2 (00:30→09:33)
[2018-04-06] MEDS: NORMAL SALINE 1,000 ML IV PRN (06:23)
[2018-04-06] MEDS ORDERED: ESCITALOPRAM OXALATE 40 MG PO SCH (09:00)
[2018-04-06] MEDS ORDERED: TOPIRAMATE 50 MG TABLET PO SCH (09:00)
[2018-04-06] MEDS ORDERED: ESCITALOPRAM OXALATE 10 MG TAB PO SCH (09:00)
[2018-04-06] MEDS: GABAPENTIN 600 MG TABLET PO SCH (09:29)
[2018-04-06] MEDS: TOPIRAMATE 50 MG TABLET PO SCH (11:54)
[2018-04-06] MEDS ORDERED: METHYLPREDNISOLONE 4 MG TABLET PO SCH (14:00)
--- NOTE | 2018-04-06 14:48 | DS ---
(1) Nausea & vomiting Problem: Resolved Qualifiers: Vomiting Intractability: non-intractable (2) Shoulder pain Problem: Chronic Qualifiers: Chronicity: chronic Laterality: right Qualified Code(s): M25.511 - Pain in right shoulder; G89.29 - Other chronic pain (3) Neurogenic bladder Problem: Chronic (4) Multiple sclerosis Problem: Chronic (5) Merritt-Danlos syndrome Problem: Chronic (6) Depression Problem: Chronic Qualifiers: Depression Type: major depressive disorder Major depression recurrence: recurrent Active/Remission status: currently active Major depression episode severity: moderate Qualified Code(s): F33.1 - Major depressive disorder, recurrent, moderate Description of Stay: Meliza Rosado is a 57-year-old female patient admitted through ER with intractable nausea and vomiting. Her electrolytes only had a mildly low potassium 3.3 and otherwise were normal. Her 2 view abdomen was of poor quality but did show multiple levels of air-fluid levels. These were small and none were dilated. She was placed to get rest and given anti-medics and IV fluids. This morning she is greatly improved no longer having nausea, vomiting, and has had no change in bowel behavior. She has advanced MS and therefore is bed or chair bound. She also has Ehler's Danlos syndrome. She has a chronic indwelling Tillman catheter and suprapubic. She is wanting to go home today and has arranged for transportation. Her disposition is improved her prognosis is fair. Of note, her is now sick with the same nausea and vomiting illness that she's had. Meliza believes that one of her caregivers have this initially and MRSA given it to her. Procedures Performed: none Results and Findings: Pending Mircobiology Results 04/05/18 04:00 Urine,Catheterized Urine Culture - Preliminary No Growth 04/05/18 04:25 Blood Blood Culture - Preliminary NO GROWTH 24 HOURS 04/05/18 04:59 Blood Blood Culture - Preliminary NO GROWTH 24 HOURS Lab Pending Results 04/05/18 04:00: Urine Color Yellow, Urine Appearance Clear, Urine pH 6.0, Ur Specific [place] 1.025, Urine Protein Negative, Urine Glucose (UA) Negative, Urine Ketones Negative, Urine Blood 50 H, Urine Nitrate Negative, Urine Bilirubin Negative, Urine Urobilinogen Normal, Ur Leukocyte Esterase 25 H, Urine RBC Trace, Urine WBC Trace H, Ur Epithelial Cells None seen, Urine Bacteria Trace, Urine Culture Comments Culture to follow 04/05/18 04:59: WBC 8.1, RBC 4.48, Hgb 13.3, Hct 41.2, MCV 92.0, MCH 29.7, MCHC 32.3, RDW 14.5 H, Plt Count 213, MPV 9.6, Immature Gran % (Auto) 0.20, Immature Gran # (Auto) 0.02, Neutrophils % 82.8 H, Lymphocytes % 7.5 L, Monocytes % 4.9, Eosinophils % 4.1 H, Basophils % 0.5, Nucleated RBC % 0.0, Neutrophils # 6.7 H, Lymphocytes # 0.61 L, Monocytes # 0.4, Eosinophils # 0.3, Absolute Basophils 0.0 04/05/18 04:59: Sodium 146 H, Plasma Sodium 147 H, Potassium 3.3 L, Chloride 111 H, Carbon Dioxide 20.3 L, Anion Gap 18.0 H, BUN 18, Creatinine 0.57, Est GFR (Non-Af Amer) 116, BUN/Creatinine Ratio 31.6 H, Random Glucose 143 H, Calcium 8.4, Calcium Adj for Albumin 8.5, Total Bilirubin 0.4, AST 17, ALT 13 L, Alkaline Phosphatase 71, C-Reactive Prot, Quant Less than 0.2, Total Protein 6.0 L, Albumin 3.5, Amylase 57, Lipase 177 04/05/18 04:59: Procalcitonin Less than 0.05 L 04/05/18 04:59: Lactic Acid, Venous 1.3 Discharge Location: Home Disposition: Home self-detention Health Agency: [facility] Condition: Fair Face to Face Encounter completed per CMS Guidelines: Yes - for home health Discharge Activity: Activity as tolerated Discharge Diet: General/regular food Referrals: Laurence Goldsmith MD [Primary Care Provider] - Additional Patient Instructions (free text): [facility] ongoing, please fax discharge information and orders upon discharge. Prescriptions (Any new or edited meds): HYDROcodone/ACETAMINOPHEN [Hydrocodone-Acetamin 5-325 mg] 10 mg PO QID PRN #120 tab PRN Reason: pain Complete Home Medications List: Complete Home Medication List: Baclofen 20 mg PO TID PRN 12/25/12 Escitalopram Oxalate [Lexapro] 40 mg PO DAILY 12/25/12 Mirabegron [Myrbetriq] 25 mg PO BID 07/11/14 Gabapentin [Neurontin] 1,200 mg PO BID 07/13/14 Topiramate [Topamax] 50 mg PO QAM #0 04/28/15 Multivitamin [One Daily Essential] 1 ea PO DAILY 08/25/15 Cholecalciferol [Vitamin D] 1,000 unit PO DAILY 08/26/15 Calcium Carb/D3/Mag Aa Chelate [Coral Calcium Capsule] 600 mg PO BID 07/24/17 Topiramate [Topamax] 25 mg PO 1200,2100 07/25/17 natalizumab 300 mg/15 mL intravenous solution 300 mg IV Q4W ml 09/09/17 TENS unit and electrodes combo pack See Dose Instructions .ROUTE .MEDSUPPLY #1 ea 09/25/17 Levofloxacin [Levaquin] 500 mg PO DAILY #10 tab 04/01/18 Baclofen 20 mg PO TID PRN tablet 04/06/18 Escitalopram Oxalate [Lexapro] 40 mg PO DAILY tab 04/06/18 HYDROcodone/ACETAMINOPHEN [Hydrocodone-Acetamin 10-325 mg] 10 mg PO QID PRN 30 Days #120 tab 04/06/18 HYDROcodone/ACETAMINOPHEN [Hydrocodone-Acetamin 5-325 mg] 10 mg PO QID PRN #120 tab 04/06/18 Methylprednisolone [Medrol] 4 mg PO DAILY@0700 #1 pkg 04/06/18
[2018-04-06] MEDS ORDERED: HYDROcodone/ACETAMINOPHEN 1 EACH TABLET PO PRN (16:11)
[2018-04-06] MEDS ORDERED: METHYLPREDNISOLONE 4 MG/TAB TAB.DS.PK PO SCH (17:00)
[2018-04-06 17:34] VITALS: BP 104/53
[2018-04-06] MEDS: METHYLPREDNISOLONE 4 MG TABLET PO SCH (18:17)
[2018-04-07] MEDS ORDERED: METHYLPREDNISOLONE 4 MG TABLET PO SCH ×2 (07:00→21:00)
[2018-04-08] MEDS ORDERED: METHYLPREDNISOLONE 4 MG TABLET PO SCH ×2 (07:00→21:00)
[2018-04-09] MEDS ORDERED: METHYLPREDNISOLONE 4 MG TABLET PO SCH (07:00)
[2018-04-10] MEDS ORDERED: METHYLPREDNISOLONE 4 MG TABLET PO SCH (07:00)
[2018-04-11] MEDS ORDERED: METHYLPREDNISOLONE 4 MG TABLET PO SCH (07:00)
== END 2018-04-06 18:18 | disposition home or self-care (01) ==
LOC: MS 03:09 → ER 03:09 → MS 06:30
PROVIDERS: ADMIT Family Medicine; ATTEND Internal Medicine
CPT/HCPCS: 36415; 74000; 74018; 80053; 81001; 82150; 83605; 83690; 84145; 85025; 86140; 87040; 87081; 87086; 96361; 96374; 96375; 99285; G0378; J2405

== ENCOUNTER 2018-05-07 14:24 | Inpatient (IN) ==
--- NOTE | 2018-05-07 14:53 | ERNOTE ---
Neuro HPI ER Record Presenting Symptoms: weakness, confusion Time Seen by Provider: 05/07/18 14:24 Source: patient, family Exam Limitations: clinical condition Immunizations: IMMUNIZATION HX Immunizations Up to Date Yes History of Influenza Vaccine No Hx Pneumococcal Vaccination No Allergies/Adverse Reactions: Allergies Allergy/AdvReac Type Severity Reaction Status Date / Time modafinil [From Provigil] Allergy Intermediate Hives Verified 05/07/18 17:23 adhesive Allergy Mild Other Verified 05/07/18 17:23 Sulfa (Sulfonamide Allergy Mild Hives Verified 05/07/18 17:23 Antibiotics) [Sulfa(Sulfonamide Antibiotics)] lactose AdvReac stomach Verified 05/07/18 17:23 issues Home Medications: HOME MEDICATIONS Mirabegron [Myrbetriq] 25 mg PO BID 07/11/14 [Last Taken 05/01/15 08:00] Gabapentin [Neurontin] 1,200 mg PO BID 07/13/14 [Last Taken 05/01/15 08:00] Topiramate [Topamax] 50 mg PO QAM #0 04/28/15 [Last Taken 05/01/15 08:00] Multivitamin [One Daily Essential] 1 ea PO DAILY 08/25/15 [Last Taken Unknown] Cholecalciferol [Vitamin D] 1,000 unit PO DAILY 08/26/15 [Last Taken Unknown] Calcium Carb/D3/Mag Aa Chelate [Coral Calcium Capsule] 600 mg PO BID 07/24/17 [Last Taken Unknown] Topiramate [Topamax] 25 mg PO 1200,2100 07/25/17 [Last Taken Unknown] natalizumab 300 mg/15 mL intravenous solution 300 mg IV Q4W ml 09/09/17 [Last Taken Unknown] Baclofen 20 mg PO TID PRN tab 04/06/18 [Last Taken Unknown] Escitalopram Oxalate [Lexapro] 40 mg PO DAILY tab 04/06/18 [Last Taken Unknown] HYDROcodone/ACETAMINOPHEN [Hydrocodone-Acetamin 5-325 mg] 10 mg PO QID PRN #120 tab 04/06/18 [Last Taken Unknown] Flaxseed/Omega3,6,9/Fatty Acid [Flax Seed Oil 1,300 mg Softgel] 3 ea PO BID 05/07/18 [Last Taken Unknown] Tens Units and Tens Electrodes [Ra Pain Relief Device] 0 unit .ROUTE .MEDSUPPLY 05/07/18 [Last Taken Unknown] - History of Present Illness Narrative: Patient has a long standing history of MS, she is wheelchair bound and has a suprapubic catheter and recurrent UTIs. she just finished 7 days of IV tobramycin yesterday morning. She seem to be doing okay when the home health nurse was their around 11:00, just fell asleep easy which is normal for her. Shortly afterwards she became increasingly lethargic and confused, repeating herself which are her symptoms a lot with UTIs. Patient is unable to give history, is just repeating herself. Her also states that she choked on drinking water twice earlier today Onset: gradual onset - Character of Deficits Additional Deficits: Absent: vision problems Baseline Cognition: Present: alert, oriented x 4 Baseline Gait: Present: unable to walk Associated Symptoms: Reports: altered mental status. Denies: fever/chills, chest pain Prior Treament: Reports: recently seen, similar symptoms before. Denies: currently on antibiotics Review of Systems - Review of Systems Constitutional: Present: recent illness, weakness, malaise. Absent: fever, chills EYE: Absent: vision changes Respiratory: Absent: shortness of breath Cardiology: Absent: chest pain Gastrointestinal/Abdominal: Absent: vomiting Genitourinary: Present: no symptoms reported Medical History (Last Reviewed 05/07/18 @ 14:53 by Dai Chan MD) History of UTI (Acute) Trochanteric bursitis (Acute) Shoulder pain (Chronic) Shoulder impingement (Chronic) Scoliosis (Chronic) Neurogenic bladder (Chronic) H/O dysmenorrhea (Chronic) Multiple sclerosis (Chronic) Onset Date: 1992 Incomplete bladder emptying (Chronic) Hip pain (Chronic) GERD (gastroesophageal reflux disease) (Chronic) Frequent infections (Chronic) Merritt-Danlos syndrome (Chronic) Depression (Chronic) DDD (degenerative disc disease) (Chronic) Colon polyps (Acute) Onset Date: 12/20/10 [place] Anxiety (Chronic) Surgical History: Surgical History (Last Reviewed 05/07/18 @ 14:53 by Dai Chan MD) H/O breast biopsy Onset Date: 2007 stereotactic core needle biopsy of the left breast w/benign findings S/P DANIELLE-BSO Onset Date: 02/26/06 done by -Fibroids, MMR S/P colonoscopy Onset Date: 12/20/10 stereotactic core needle biopsy of the left breast w/benign findings Status post insertion of intrathecal baclofen pump Onset Date: 12/15/11 Family History: Family History (Last Reviewed 05/07/18 @ 17:23 by Tomas Powell RN) Father , 79 COPD (chronic obstructive pulmonary disease) Hypertension Asthma Mother Hypertension Alzheimers disease Glaucoma Osteoporosis Grandmother Diabetes Social History: Preferred Language [place] Citizen Do you have any uatsdin or No cultural preference? Smoking Status Never smoker Abuse History No History of abuse,Hx-Community Resource Use Psych History Hx of Anxiety,Hx of Depression,Currently on Meds Alcohol Use none Drug Use none (Last Updated 04/15/18 @ 13:30 by Laurence Goldsmith MD) No Social History Section defined Physical Exam - Physical Exam General Appearance: Present: sleeping/easy to arouse Head Exam: Present: normal inspection, no evidence of injury Eye Exam: Normal inspection: bilateral, PERRL: bilateral Ears, Nose, Throat: Present: normal pharynx Respiratory: Present: no respiratory distress, normal breath sounds, no accessory muscle use, lungs clear Cardiovascular/Chest: Present: regular rate, rhythm Gastrointestinal/Abdominal: Present: normal bowel sounds, nontender, nondistended, soft, other - suprapubic cath, no surrounding signs of infection Extremity Exam: Present: no edema Neurological Exam: Present: alert, no motor/sensory deficits - logistics solution manager equal but decrased, disoriented to time, disoriented to situation, other - patient answers some questions appropiately, then keeps repeating the same answers and words, fasciculations of anterior neck muscles . Absent: disoriented to person, disoriented to place Skin Exam: Present: normal color, warm/dry Amy Coma Scale - Assess Eye Opening: Spontaneous Motor: Obeys Commands Verbal: Confused - Total Coma Scale Total: 14 Progress - Results and Orders Patient's Lab Results:: I have reviewed the patient's lab results. - Vital Signs Patient's Vital Signs:: I have reviewed the patient's vital signs. Vital Signs: Vital Signs 05/07/18 14:28 Temperature 36.8 C Pulse Rate 97 Respiratory Rate 20 Blood Pressure 105/64 O2 Sat by Pulse Oximetry 96 - X-Ray X-Ray #1 X-Ray: chest - no acute changes Interpretation: Reviewed by me - Progress/Reassessment Chief Complaint: Altered Mental Status Progress Note-Subjective: 05/07/18 16:[address] Perera 05/07/18 16:[address] Perera will start ceftazidime according to sensitivities of last culture admit for observation due to changes in mental status plan discussed with Departure Clinical Impression: Multiple sclerosis UTI (urinary tract infection) due to urinary indwelling catheter Qualifiers: Indwelling urinary catheter type: unspecified Encounter type: initial encounter Qualified Code(s): T83.511A - Infection and inflammatory reaction due to indwelling urethral catheter, initial encounter; N39.0 - Urinary tract infection, site not specified Altered mental status, unspecified Qualifiers: Altered mental status type: somnolence Qualified Code(s): R40.0 - Somnolence - Departure Disposition: Still a patient Condition: Stable
[2018-05-07 15:11] LABS: Hematocrit 40.3 % (37.0-47.0); Mean Cell Volume 89.6 fl (78-100); Mean Corpuscular Hemoglobin 28.9 pg (27-31); Mean Corpuscular Hgb Conc 32.3 g/dl (32-36); Mean Platelet Volume 9.3 fl (8-12.5); Neutrophil # 2.7 K/mm3 (1.3-6.0); Neutrophil % 49.4 % (42-75.0); Platelet Count 286 K/mm3 (150-450); Red Cell Distribution Width 14.6 % (11.5-14.0); White Blood Count 5.5 K/mm3 (4.0-10.5)
[2018-05-07 15:20] LABS: Albumin * 3.7 gm/dl (3.4-5.0); Anion Gap 13.7 mmol/L (6.8-13.8); BUN/Creatinine Ratio 22.4 (9.0-21.6); Bilirubin, Total 0.3 mg/dL (0.0-1.1); CRP 0.2 mg/dL (0.0-0.9); Ca. Corrected For Albumin 8.8 mg/dL (8.4-10.2); Calcium * 8.9 mg/dL (7.9-10.9); Carbon Dioxide 25.8 mmol/L (24-32.6); Potassium 3.5 mmol/L (3.4-4.6); Total Protein 6.3 gm/dL (6.2-8.2)
[2018-05-07 15:37] LABS: Urine Bilirubin Negative (NEGATIVE); Urine Blood 250 /ul (NEGATIVE); Urine Ketone Negative (NEGATIVE); Urine Protein Negative (NEGATIVE); Urine Specific Gravity 1.015 SP.GR. (1.005-1.010); Urine Urobilinogen Normal (NORMAL); Urine pH 7.5 pH (5.0-7.0)
[2018-05-07 15:45] LABS: Urine Appearance Clear (CLEAR); Urine Bacteria 1+; Urine Color Yellow; Urine Nitrite Positive (NEGATIVE)
[2018-05-07] MEDS ORDERED: NORMAL SALINE 1,000 ML IV PRN (17:32)
--- NOTE | 2018-05-07 17:34 | HP ---
Chief Complaint - Chief Complaint Date of Service: 05/07/18 Time of Service: 16:30 Chief Complaint: Altered mental status History of Present Illness: This is a 57-year-old female with a past medical history of multiple sclerosis, neurogenic bladder, recurrent UTIs, degenerative disc disease, depression, GERD who presents with complaints of altered mental status. Her Amrik is at her bedside and states that she was in her normal state yesterday. This morning she took a bath her bath aide gave her a bath and 1 Vicodin and 1 Tylenol for right shoulder pain. At that time she was at her baseline. Around 1:45 PM another aide came to pick her up for her doctor's appointment and she was sound asleep and unarousable. Her was called and when he tried to speak with her she was confused and kept repeating the same thing over and over again. He decided to call the ambulance to bring her to the hospital. She had just been treated with tobramycin for a UTI for 7 days and completed the last dose on May 06, 2017. In the ED today she is found to have a positive UA. Vitals are stable. She has been admitted for UTI with altered mental status. We are starting her on ceftazidime. Medical History (Last Reviewed 05/07/18 @ 14:53 by Dai Chan MD) History of UTI (Acute) Trochanteric bursitis (Acute) Shoulder pain (Chronic) Shoulder impingement (Chronic) Scoliosis (Chronic) Neurogenic bladder (Chronic) H/O dysmenorrhea (Chronic) Multiple sclerosis (Chronic) Onset Date: 1992 Incomplete bladder emptying (Chronic) Hip pain (Chronic) GERD (gastroesophageal reflux disease) (Chronic) Frequent infections (Chronic) Merritt-Danlos syndrome (Chronic) Depression (Chronic) DDD (degenerative disc disease) (Chronic) Colon polyps (Acute) Onset Date: 12/20/10 [place] Anxiety (Chronic) Surgical History: Surgical History (Last Reviewed 05/07/18 @ 14:53 by Dai Chan MD) H/O breast biopsy Onset Date: 2007 stereotactic core needle biopsy of the left breast w/benign findings S/P DANIELLE-BSO Onset Date: 02/26/06 done by -Fibroids, MMR S/P colonoscopy Onset Date: 12/20/10 stereotactic core needle biopsy of the left breast w/benign findings Status post insertion of intrathecal baclofen pump Onset Date: 12/15/11 Family History: Family History (Last Reviewed 05/07/18 @ 14:34 by Dayna Augustin RN) Father , 79 COPD (chronic obstructive pulmonary disease) Hypertension Asthma Mother Hypertension Alzheimers disease Glaucoma Osteoporosis Grandmother Diabetes Social History: Preferred Language [place] Do you have any christian or No cultural preference? Smoking Status Never smoker Abuse History No History of abuse,Hx-Community Resource Use Psych History Hx of Anxiety,Hx of Depression,Currently on Med s Alcohol Use none Drug Use none (Last Updated 04/15/18 @ 13:30 by Laurence Goldsmith MD) No Social History Section defined Review Of Systems (GEN) - Review of Systems Generalized/Overall Review: Absent: Chills, Fever Neurological: Present: Other - Lethargic unarousable Misc: All systems neg except as marked Immunizations: IMMUNIZATION HX Immunizations Up to Date Yes History of Influenza Vaccine No Hx Pneumococcal Vaccination No Allergies/Adverse Reactions: Allergies Allergy/AdvReac Type Severity Reaction Status Date / Time modafinil [From Provigil] Allergy Intermediate Hives Verified 05/07/18 17:23 adhesive Allergy Mild Other Verified 05/07/18 17:23 Sulfa (Sulfonamide Allergy Mild Hives Verified 05/07/18 17:23 Antibiotics) [Sulfa(Sulfonamide Antibiotics)] lactose AdvReac stomach Verified 05/07/18 17:23 issues Home Medications: HOME MEDICATIONS Mirabegron [Myrbetriq] 25 mg PO BID 07/11/14 [Last Taken 05/01/15 08:00] Gabapentin [Neurontin] 1,200 mg PO BID 07/13/14 [Last Taken 05/01/15 08:00] Topiramate [Topamax] 50 mg PO QAM #0 04/28/15 [Last Taken 05/01/15 08:00] Multivitamin [One Daily Essential] 1 ea PO DAILY 08/25/15 [Last Taken Unknown] Cholecalciferol [Vitamin D] 1,000 unit PO DAILY 08/26/15 [Last Taken Unknown] Calcium Carb/D3/Mag Aa Chelate [Coral Calcium Capsule] 600 mg PO BID 07/24/17 [Last Taken Unknown] Topiramate [Topamax] 25 mg PO 1200,2100 05/31/18 [Last Taken Unknown] natalizumab 300 mg/15 mL intravenous solution 300 mg IV Q4W ml 09/09/17 [Last Taken Unknown] Baclofen 20 mg PO TID PRN tab 04/06/18 [Last Taken Unknown] Escitalopram Oxalate [Lexapro] 40 mg PO DAILY tab 04/06/18 [Last Taken Unknown] HYDROcodone/ACETAMINOPHEN [Hydrocodone-Acetamin 5-325 mg] 10 mg PO QID PRN #120 tab 04/06/18 [Last Taken Unknown] Flaxseed/Omega3,6,9/Fatty Acid [Flax Seed Oil 1,300 mg Softgel] 3 ea PO BID 05/07/18 [Last Taken Unknown] Tens Units and Tens Electrodes [Ra Pain Relief Device] 0 unit .ROUTE .MEDSUPPLY 05/07/18 [Last Taken Unknown] Exam - Exam Vital Signs: Vital Signs - Last Taken Temp 36.8 C 05/07/18 14:28 Pulse 88 05/07/18 16:26 Resp 15 05/07/18 16:26 BP 99/46 05/07/18 16:26 Pulse Ox 91 L 05/07/18 16:26 Constitutional: Present: Well nourished, No distress, Somnolent, Middle aged Eye Exam: left eye: PERRL Neck: Present: non-tender, supple. Absent: lymphadenopathy (R), lymphadenopathy (L) Back Exam: Present: normal inspection Respiratory: Present: decreased breath sounds. Absent: crackles, rhonchi, wheezing Cardiovascular/Chest: Present: normal peripheral pulses, regular rate, rhythm, no edema, no murmur Peripheral Pulses: dorsalis-pedis (R): 2+, dorsalis-pedis (L): 2+ Abdomen: Present: Normal bowel sounds, soft, nontender, other - Suprapubic catheter in place no erythema noted Extremity: Present: no pedal edema Skin Exam: Present: normal color, warm/dry Neurologic: Present: other - Very lethargic not responsive to verbal or tactile stimuli. Eye contact: Absent: good eye contact Thoughts: Absent: normal thought pattern Diagnostic Studies: Abnormal Lab Results 05/07/18 05/07/18 05/07/18 Range/Units 15:00 15:00 Unknown RDW 14.6 H (11.5-14.0) % Eosinophils % 4.7 H (0.0-3.0) % Basophils % 1.1 H (0.0-1.0) % Est GFR (Non-Af Amer) 138 H (60-130) mL/min BUN/Creatinine Ratio 22.4 H (9.0-21.6) Urine Blood 250 H (NEGATIVE) /ul Urine Nitrate Positive H (NEGATIVE) Ur Leukocyte Esterase 75 H (NEGATIVE) /ul Urine RBC 10-25 H (0-5) /hpf Urine WBC 5-10 H (0-5) /hpf Urine Bacteria 1+ H (NONE) Laboratory Results WBC 5.5 K/mm3 (4.0-10.5) 05/07/18 15:00 RBC 4.50 M/mm3 (4.2-5.4) 05/07/18 15:00 Hgb 13.0 gm/dL (12.5-16.0) 05/07/18 15:00 Hct 40.3 % (37.0-47.0) 05/07/18 15:00 MCV 89.6 fl (78-100) 05/07/18 15:00 MCH 28.9 pg (27-31) 05/07/18 15:00 MCHC 32.3 g/dl (32-36) 05/07/18 15:00 RDW 14.6 % (11.5-14.0) H 05/07/18 15:00 Plt Count 286 K/mm3 (150-450) 05/07/18 15:00 MPV 9.3 fl (8-12.5) 05/07/18 15:00 Immature Gran % (Auto) 0.20 % (0.001-0.429) 05/07/18 15:00 Immature Gran # (Auto) 0.01 K/mm3 (0.000-0.0310) 05/07/18 15:00 Neutrophils % 49.4 % (42-75.0) 05/07/18 15:00 Lymphocytes % 36.6 % (20-51) 05/07/18 15:00 Monocytes % 8.0 % (0.0-9) 05/07/18 15:00 Eosinophils % 4.7 % (0.0-3.0) H 05/07/18 15:00 Basophils % 1.1 % (0.0-1.0) H 05/07/18 15:00 Nucleated RBC % 0.0 k/mm3 (0-1) 05/07/18 15:00 Neutrophils # 2.7 K/mm3 (1.3-6.0) 05/07/18 15:00 Lymphocytes # 2.02 k/mm3 (1.5-3.5) 05/07/18 15:00 Monocytes # 0.4 k/mm3 (0.0-1.0) 05/07/18 15:00 Eosinophils # 0.3 k/mm3 (0.0-0.7) 05/07/18 15:00 Absolute Basophils 0.1 k/mm3 (0.0-0.1) 05/07/18 15:00 Sodium 142 mmol/L (132-142) 05/07/18 15:00 Plasma Sodium 142 mmol/L (130-142) 05/07/18 15:00 Potassium 3.5 mmol/L (3.4-4.6) 05/07/18 15:00 Chloride 106 mmol/L (97-106) 05/07/18 15:00 Carbon Dioxide 25.8 mmol/L (24-32.6) 05/07/18 15:00 Anion Gap 13.7 mmol/L (6.8-13.8) 05/07/18 15:00 BUN 11 mg/dL (3-23) 05/07/18 15:00 Creatinine 0.49 mg/dL (0.4-1.4) 05/07/18 15:00 Est GFR (Non-Af Amer) 138 mL/min (60-130) H 05/07/18 15:00 BUN/Creatinine Ratio 22.4 (9.0-21.6) H 05/07/18 15:00 Random Glucose 90 mg/dL (70-110) 05/07/18 15:00 Lactic Acid, Venous 0.8 mmol/L (0.4-2.0) 05/07/18 15:00 Calcium 8.9 mg/dL (7.9-10.9) 05/07/18 15:00 Calcium Adj for Albumin 8.8 mg/dL (8.4-10.2) 05/07/18 15:00 Total Bilirubin 0.3 mg/dL (0.0-1.1) 05/07/18 15:00 AST 17 U/L (0-48) 05/07/18 15:00 ALT 21 U/L (19-67) 05/07/18 15:00 Alkaline Phosphatase 71 U/L (50-170) 05/07/18 15:00 C-Reactive Prot, Quant 0.2 mg/dL (0.0-0.9) 05/07/18 15:00 Total Protein 6.3 gm/dL (6.2-8.2) 05/07/18 15:00 Albumin 3.7 gm/dl (3.4-5.0) 05/07/18 15:00 Urine Color Yellow 05/07/18 Unknown Urine Appearance Clear (CLEAR) 05/07/18 Unknown Urine pH 7.5 pH (5.0-7.0) 05/07/18 Unknown Ur Specific [place] 1.015 SP.GR. (1.005-1.010) 05/07/18 Unknown Urine Protein Negative mg/dL (NEGATIVE) 05/07/18 Unknown Urine Glucose (UA) Negative mg/dL (NEGATIVE) 05/07/18 Unknown Urine Ketones Negative mg/dL (NEGATIVE) 05/07/18 Unknown Urine Blood 250 /ul (NEGATIVE) H 05/07/18 Unknown Urine Nitrate Positive (NEGATIVE) H 05/07/18 Unknown Urine Bilirubin Negative mg/dl (NEGATIVE) 05/07/18 Unknown Urine Urobilinogen Normal EU/dl (NORMAL) 05/07/18 Unknown Ur Leukocyte Esterase 75 /ul (NEGATIVE) H 05/07/18 Unknown Urine RBC 10-25 /hpf (0-5) H 05/07/18 Unknown Urine WBC 5-10 /hpf (0-5) H 05/07/18 Unknown Ur Epithelial Cells 0-5 /hpf (0-5) 05/07/18 Unknown Urine Bacteria 1+ (NONE) H 05/07/18 Unknown Urine Culture Comments Culture to follow 05/07/18 Unknown Assessment/Plan - Narrative Narrative: This is a 57-year-old female with a past medical history of multiple sclerosis, neurogenic bladder, recurrent UTIs, degenerative disc disease, depression, GERD who presents with complaints of altered mental status. She had just been treated with tobramycin for a UTI for 7 days and completed the last dose on May 06, 2017. In the ED today she is found to have a positive UA. Vitals are stable. She has been admitted for UTI with altered mental status. We are starting her on ceftazidime. - Assessment/Plan (1) Altered mental status, unspecified Assessment: Likely secondary to urinary tract infection. Continue with ceftazidime until urine cultures return. Obtain blood cultures Problem: Acute Qualifiers: Altered mental status type: somnolence Qualified Code(s): R40.0 - Somnolence (2) Urinary tract infection Assessment: Urine cultures pending continue with ceftazidime. Problem: Acute (3) Shoulder pain Assessment: She is currently unresponsive no need for pain medications. Problem: Chronic Qualifiers: (4) GERD (gastroesophageal reflux disease) Assessment: Stable. Problem: Chronic
[2018-05-07] MEDS: CEFTAZIDIME 2 GM in DEXTROSE 5 % IN WATER 100 ML IV SCH ×2 (17:57)
[2018-05-07] MEDS ORDERED: NORMAL SALINE 1,000 ML IV ONE (17:59)
[2018-05-07] MEDS ORDERED: BACLOFEN 10 MG TABLET ONE (22:44)
[2018-05-07] MEDS: BACLOFEN 10 MG TABLET PO PRN (22:47)
[2018-05-08] MEDS: HYDROcodone/ACETAMINOPHEN 1 EACH TABLET PO PRN ×3 (01:13→22:37)
[2018-05-08] MEDS: CEFTAZIDIME 2 GM in DEXTROSE 5 % IN WATER 100 ML IV SCH ×4 (01:15→09:27)
[2018-05-08 05:49] LABS: Hematocrit 37.1 % (37.0-47.0); Hemoglobin 12.2 gm/dL (12.5-16.0); Mean Cell Volume 88.8 fl (78-100); Mean Corpuscular Hemoglobin 29.2 pg (27-31); Mean Corpuscular Hgb Conc 32.9 g/dl (32-36); Mean Platelet Volume 9.4 fl (8-12.5); Neutrophil # 2.5 K/mm3 (1.3-6.0); Neutrophil % 45.1 % (42-75.0); Platelet Count 272 K/mm3 (150-450); Red Blood Count 4.18 M/mm3 (4.2-5.4); Red Cell Distribution Width 14.3 % (11.5-14.0); White Blood Count 5.5 K/mm3 (4.0-10.5)
[2018-05-08 06:10] LABS: Albumin * 3.2 gm/dl (3.4-5.0); Anion Gap 15.1 mmol/L (6.8-13.8); BUN/Creatinine Ratio 17.3 (9.0-21.6); Bilirubin, Total 0.3 mg/dL (0.0-1.1); Ca. Corrected For Albumin 8.7 mg/dL (8.4-10.2); Calcium * 8.4 mg/dL (7.9-10.9); Carbon Dioxide 22.1 mmol/L (24-32.6); Potassium 3.2 mmol/L (3.4-4.6); Total Protein 5.6 gm/dL (6.2-8.2)
[2018-05-08] MEDS: BACLOFEN 10 MG TABLET PO PRN (08:34)
[2018-05-08] MEDS ORDERED: POT CHLORIDE/POT BICARB/CIT AC 25 MEQ TABLET.EFF PO ONE (10:39)
--- NOTE | 2018-05-08 16:27 | PN ---
Subjective - Date and Time Seen Date: 05/08/18 Time: 09:10 Objective - Review of Systems Generalized/Overall Review: Denies: Fever Abdominal: Denies: Abdominal Pain Musculoskeletal Complaints: Reports: Joint Pain - Right shoulder Misc: All systems neg except as marked - Vitals Vitals: Last Vital Signs Temp 36.8 C 05/08/18 15:07 Pulse 82 05/08/18 15:07 Resp 16 05/08/18 15:07 BP 121/75 05/08/18 15:07 Pulse Ox 96 05/08/18 15:07 - Abnormal Lab Findings Abnormal Lab Findings: Abnormal Lab Results 05/07/18 05/08/18 05/08/18 Range/Units 17:54 05:00 05:00 RBC 4.18 L (4.2-5.4) M/mm3 Hgb 12.2 L (12.5-16.0) gm/dL RDW 14.3 H (11.5-14.0) % Eosinophils % 4.2 H (0.0-3.0) % pO2 346.8 H (83.0-108.0) mmHg ABG O2 Sat (Measured) 99.8 H (94.0-98.0) % Sodium 144 H (132-142) mmol/L Plasma Sodium 144 H (130-142) mmol/L Potassium 3.2 L (3.4-4.6) mmol/L Chloride 110 H (97-106) mmol/L Carbon Dioxide 22.1 L (24-32.6) mmol/L Anion Gap 15.1 H (6.8-13.8) mmol/L ALT 16 L (19-67) U/L Total Protein 5.6 L (6.2-8.2) gm/dL Albumin 3.2 L (3.4-5.0) gm/dl - Exam Constitutional: Present: Alert, Cooperative, Well developed, Well nourished, No distress, Middle aged ENT Exam: Present: hearing grossly normal Neck: Present: supple. Absent: lymphadenopathy (R), lymphadenopathy (L) Respiratory: Present: lungs clear Cardiovascular/Chest: Present: normal peripheral pulses, regular rate, rhythm, no edema, no murmur Abdomen: Present: Normal bowel sounds, soft, nontender Extremity: Present: non-tender, no pedal edema Skin Exam: Present: normal color, warm/dry Neurologic: Present: alert - A&O x2 to person and place Appearance: Present: impaired insight Eye contact: Present: cooperative Assessment/Plan - Problems/Diagnosis (1) Altered mental status, unspecified Problem: Acute Qualifiers: Altered mental status type: somnolence Qualified Code(s): R40.0 - Somnolence Narrative: Possibly secondary to acute exacerbation of multiple sclerosis. Infectious etiology has been ruled out. Discontinue ceftazidime. I have spoken with neurologist on-call physician Dr. Matias Sandhu at the [facility], and she is concerned that the patient may be having nonconvulsive seizures due to the repetitive speech. She would like the patient transferred to the [facility] for EEG monitoring. (2) Shoulder pain Problem: Chronic Qualifiers: Laterality: right (3) GERD (gastroesophageal reflux disease) Problem: Chronic Narrative: Stable
--- NOTE | 2018-05-08 17:58 | DS ---
(1) Altered mental status, unspecified Problem: Acute Qualifiers: Altered mental status type: somnolence Qualified Code(s): R40.0 - Somnolence (2) Shoulder pain Problem: Chronic Qualifiers: Laterality: right (3) GERD (gastroesophageal reflux disease) Problem: Chronic (4) Nonconvulsive generalized seizure disorder Diagnosis(s): The on-call neurologist at the [facility] Dr. Matias Sandhu believed that she may be having nonconvulsive seizures. She would like her transferred to the [facility] for EEG monitoring. Awaiting a bed to open up. Problem: Suspected Description of Stay: This is a 57-year-old female with a past medical history of multiple sclerosis, neurogenic bladder, recurrent UTIs, degenerative disc disease, depression, GERD who presents with complaints of altered mental status x 1 day. Initially we were attributing her mental status to a urinary tract infection. Urine cultures are negative and she recently completed a course of Tobramycin for urinary tract infection with Pseudomonas for 7 days. Today she continues to have repetitive speech which is very far from her baseline. She is A&O x3 at baseline. I have consulted with the neurologist electronic intelligence officer at the [facility], Dr. Matias Kilpatrick, and she believes the patient may be having non-convulsive seizures. She would like us to transfer the patient to their facility for EEG monitoring. Results and Findings: Pending Mircobiology Results 05/07/18 15:00 Blood Blood Culture - Preliminary NO GROWTH 24 HOURS 05/07/18 Unknown Urine,Clean Catch Urine Culture - Preliminary No Growth Lab Pending Results 05/07/18 15:00: WBC 5.5, RBC 4.50, Hgb 13.0, Hct 40.3, MCV 89.6, MCH 28.9, MCHC 32.3, RDW 14.6 H, Plt Count 286, MPV 9.3, Immature Gran % (Auto) 0.20, Immature Gran # (Auto) 0.01, Neutrophils % 49.4, Lymphocytes % 36.6, Monocytes % 8.0, Eosinophils % 4.7 H, Basophils % 1.1 H, Nucleated RBC % 0.0, Neutrophils # 2.7, Lymphocytes # 2.02, Monocytes # 0.4, Eosinophils # 0.3, Absolute Basophils 0.1 05/07/18 15:00: Sodium 142, Plasma Sodium 142, Potassium 3.5, Chloride 106, Carbon Dioxide 25.8, Anion Gap 13.7, BUN 11, Creatinine 0.49, Est GFR (Non-Af Amer) 138 H, BUN/Creatinine Ratio 22.4 H, Random Glucose 90, Calcium 8.9, Calcium Adj for Albumin 8.8, Total Bilirubin 0.3, AST 17, ALT 21, Alkaline Phosphatase 71, C-Reactive Prot, Quant 0.2, Total Protein 6.3, Albumin 3.7 05/07/18 15:00: Lactic Acid, Venous 0.8 05/07/18 17:54: pCO2 34.7, pO2 346.8 H, HCO3 22.5, Total CO2 23.6, Base Excess - 1.2, ABG pH 7.43, ABG O2 Sat (Measured) 99.8 H 05/07/18 18:00: Lactic Acid, Venous 0.4 05/07/18 : Urine Color Yellow, Urine Appearance Clear, Urine pH 7.5, Ur Specific [place] 1.015, Urine Protein Negative, Urine Glucose (UA) Negative, Urine Ketones Negative, Urine Blood 250 H, Urine Nitrate Positive H, Urine Bilirubin Negative, Urine Urobilinogen Normal, Ur Leukocyte Esterase 75 H, Urine RBC 10-25 H, Urine WBC 5-10 H, Ur Epithelial Cells 0-5, Urine Bacteria 1+ H, Urine Culture Comments Culture to follow 05/08/18 05:00: WBC 5.5, RBC 4.18 L, Hgb 12.2 L, Hct 37.1, MCV 88.8, MCH 29.2, MCHC 32.9, RDW 14.3 H, Plt Count 272, MPV 9.4, Immature Gran % (Auto) 0.20, Immature Gran # (Auto) 0.01, Neutrophils % 45.1, Lymphocytes % 42.6, Monocytes % 7.0, Eosinophils % 4.2 H, Basophils % 0.9, Nucleated RBC % 0.0, Neutrophils # 2.5, Lymphocytes # 2.32, Monocytes # 0.4, Eosinophils # 0.2, Absolute Basophils 0.1 05/08/18 05:00: Sodium 144 H, Plasma Sodium 144 H, Potassium 3.2 L, Chloride 110 H, Carbon Dioxide 22.1 L, Anion Gap 15.1 H, BUN 9, Creatinine 0.52, Est GFR (Non-Af Amer) 129, BUN/Creatinine Ratio 17.3, Random Glucose 97, Calcium 8.4, Calcium Adj for Albumin 8.7, Total Bilirubin 0.3, AST 18, ALT 16 L, Alkaline Phosphatase 66, Total Protein 5.6 L, Albumin 3.2 L Disposition: Short Term Hospital Inpatient Condition: Stable Referrals: Laurence Goldsmith MD [Primary Care Provider] - Complete Home Medications List: Complete Home Medication List: Mirabegron [Myrbetriq] 25 mg PO DAILY 07/11/14 Gabapentin [Neurontin] 1,200 mg PO BID 07/13/14 Topiramate [Topamax] 100 mg PO QAM #0 04/28/15 Topiramate [Topamax] 25 mg PO 1200,2100 07/25/17 natalizumab 300 mg/15 mL intravenous solution 300 mg IV Q4W ml 09/09/17 Baclofen 20 mg PO TID PRN tab 04/06/18 Escitalopram Oxalate [Lexapro] 40 mg PO DAILY tab 04/06/18 Tens Units and Tens Electrodes [Ra Pain Relief Device] 0 unit .ROUTE .MEDSUPPLY 05/07/18 HYDROcodone/ACETAMINOPHEN [Hydrocodon-Acetaminophn 10-325] 1 ea PO QID PRN 05/08/18
[2018-05-09] MEDS: BACLOFEN 10 MG TABLET PO PRN ×2 (00:55→07:55)
[2018-05-09] MEDS: HYDROcodone/ACETAMINOPHEN 1 EACH TABLET PO PRN ×3 (04:37→17:27)
[2018-05-09 05:37] LABS: Hematocrit 39.2 % (37.0-47.0); Hemoglobin 12.7 gm/dL (12.5-16.0); Mean Cell Volume 88.7 fl (78-100); Mean Corpuscular Hemoglobin 28.7 pg (27-31); Mean Corpuscular Hgb Conc 32.4 g/dl (32-36); Mean Platelet Volume 9.5 fl (8-12.5); Neutrophil % 41.3 % (42-75.0); Platelet Count 274 K/mm3 (150-450); Red Blood Count 4.42 M/mm3 (4.2-5.4); Red Cell Distribution Width 14.3 % (11.5-14.0); White Blood Count 4.9 K/mm3 (4.0-10.5)
[2018-05-09 05:58] LABS: Albumin * 3.4 gm/dl (3.4-5.0); Anion Gap 14.4 mmol/L (6.8-13.8); BUN/Creatinine Ratio 17.9 (9.0-21.6); Bilirubin, Total 0.3 mg/dL (0.0-1.1); Ca. Corrected For Albumin 8.9 mg/dL (8.4-10.2); Calcium * 8.7 mg/dL (7.9-10.9); Carbon Dioxide 23.7 mmol/L (24-32.6); Potassium 3.1 mmol/L (3.4-4.6)
[2018-05-09] MEDS: HEPARIN SOD.,PORCINE 100 UNITS/ML IV PRN (10:46)
[2018-05-09] MEDS ORDERED: POTASSIUM BICARBONATE/CIT AC 25 MEQ TABLET.EFF PO ONE ×2 (11:59→12:00)
[2018-05-09] MEDS: HEPARIN SODIUM,PORCINE 5,000 UNITS/ML VIAL SC SCH (14:58)
--- NOTE | 2018-05-09 16:39 | PN ---
Subjective - Date and Time Seen Date: 05/09/18 Time: 08:55 Subjective Narrative: She states she does not feel well. She says her body hurts everywhere. Objective - Review of Systems Generalized/Overall Review: Reports: Malaise Musculoskeletal Complaints: Reports: Other - Right shoulder and body aches Misc: All systems neg except as marked - Vitals Vitals: Last Vital Signs Temp 36.7 C 05/09/18 14:45 Pulse 96 05/09/18 14:45 Resp 16 05/09/18 14:45 BP 118/70 05/09/18 14:45 Pulse Ox 96 05/09/18 14:45 - Abnormal Lab Findings Abnormal Lab Findings: Abnormal Lab Results 05/09/18 05/09/18 Range/Units 05:40 05:40 RDW 14.3 H (11.5-14.0) % Immature Gran % (Auto) 0.00 L (0.001-0.429) % Neutrophils % 41.3 L (42-75.0) % Monocytes % 9.1 H (0.0-9) % Eosinophils % 3.7 H (0.0-3.0) % Potassium 3.1 L (3.4-4.6) mmol/L Chloride 107 H (97-106) mmol/L Carbon Dioxide 23.7 L (24-32.6) mmol/L Anion Gap 14.4 H (6.8-13.8) mmol/L ALT 17 L (19-67) U/L Total Protein 6.0 L (6.2-8.2) gm/dL - Exam Constitutional: Present: Alert, Cooperative, Well developed, No distress, Middle aged ENT Exam: Present: hearing grossly normal Neck: Present: non-tender, supple. Absent: lymphadenopathy (R), lymphadenopathy (L) Respiratory: Present: lungs clear, No wheezing. Absent: crackles, rhonchi Cardiovascular/Chest: Present: normal peripheral pulses, no edema, no murmur Abdomen: Present: Normal bowel sounds, soft - Suprapubic catheter in place, nontender Extremity: Present: no pedal edema Skin Exam: Present: normal color, warm/dry Neurologic: Present: alert, other - Alert and oriented to person. Speech improved. Thoughts: Present: other - More coherent today Cauti Physician Documentation - Urinary Catheter Management Suprapubic Urethral Indwelling: Yes Reason for Continuing Indwelling Catheter: Prolonged immobilization Assessment/Plan - Problems/Diagnosis (1) Altered mental status, unspecified Problem: Acute Qualifiers: Altered mental status type: somnolence Qualified Code(s): R40.0 - Somnolence Narrative: Mentation has improved today she is oriented to person and place. We are awaiting a bed at the [facility]. Her neurology group she follows with she should be transferred for EEG monitoring in order to determ ine whether or not she is having nonconvulsive seizures. Family is aware of the plan and is in agreement. (2) Shoulder pain Problem: Chronic Qualifiers: Laterality: right Narrative: Continue with pain medication. This pain seems to be chronic for her (3) GERD (gastroesophageal reflux disease) Problem: Chronic Narrative: Stable. Continue home medication. (4) Nonconvulsive generalized seizure disorder Problem: Suspected Narrative: Awaiting transfer to [facility] for EEG monitoring per Dr. Matias Sandhu. (5) Hypokalemia Problem: Acute Narrative: Replete as needed. (6) Decreased oral intake Problem: Acute Narrative: Start IV fluid hydration. She does not have an appetite and is not eating or drinking.
[2018-05-09] MEDS: ESCITALOPRAM OXALATE 10 MG TAB PO SCH (17:28)
[2018-05-09] MEDS: NORMAL SALINE 1,000 ML IV PRN (17:33)
[2018-05-09] MEDS: GABAPENTIN 600 MG TABLET PO SCH (20:52)
[2018-05-09] MEDS: TOPIRAMATE 50 MG TABLET PO SCH (20:53)
[2018-05-09] MEDS ORDERED: TOPIRAMATE 50 MG TABLET PO SCH (21:00)
[2018-05-10] MEDS: HYDROcodone/ACETAMINOPHEN 1 EACH TABLET PO PRN ×2 (01:25→07:57)
[2018-05-10] MEDS: HEPARIN SODIUM,PORCINE 5,000 UNITS/ML VIAL SC SCH ×2 (03:03→16:18)
[2018-05-10] MEDS: NORMAL SALINE 1,000 ML IV PRN ×2 (05:22→20:20)
[2018-05-10 06:06] LABS: Hematocrit 36.6 % (37.0-47.0); Mean Corpuscular Hemoglobin 28.8 pg (27-31); Mean Corpuscular Hgb Conc 32.8 g/dl (32-36); Mean Platelet Volume 9.5 fl (8-12.5); Neutrophil # 1.5 K/mm3 (1.3-6.0); Neutrophil % 29.6 % (42-75.0); Platelet Count 277 K/mm3 (150-450); Red Blood Count 4.16 M/mm3 (4.2-5.4); Red Cell Distribution Width 14.2 % (11.5-14.0)
[2018-05-10 06:17] LABS: Albumin * 3.1 gm/dl (3.4-5.0); Anion Gap 12.3 mmol/L (6.8-13.8); BUN/Creatinine Ratio 12.8 (9.0-21.6); Bilirubin, Total 0.3 mg/dL (0.0-1.1); Ca. Corrected For Albumin 8.5 mg/dL (8.4-10.2); Calcium * 8.1 mg/dL (7.9-10.9); Carbon Dioxide 24.6 mmol/L (24-32.6); Potassium 2.9 mmol/L (3.4-4.6); Total Protein 5.5 gm/dL (6.2-8.2)
[2018-05-10] MEDS: POTASSIUM BICARBONATE/CIT AC 25 MEQ TABLET.EFF PO SCH ×2 (09:26→21:34)
[2018-05-10] MEDS: ESCITALOPRAM OXALATE 10 MG TAB PO SCH (09:26)
[2018-05-10] MEDS: GABAPENTIN 600 MG TABLET PO SCH ×2 (09:26→21:34)
[2018-05-10] MEDS: TOPIRAMATE 50 MG TABLET PO SCH ×3 (09:26→21:34)
--- NOTE | 2018-05-10 13:20 | PN ---
Subjective - Date and Time Seen Date: 05/10/18 Time: 12:38 Subjective Narrative: Patient is looking forward to going to [facility], and states she needs to have an MRI of her brain. She feels like she is less confused. She can not have an MRI here because she has a baclofen pump. She is also hoping for an MRI of her shoulder. PO intake is not at baseline. Denies CP or SOB. She wants to be sure she is getting the maximum allowed dose of acetaminophen, and wants to be able to use her home heating pad. Objective - Review of Systems Generalized/Overall Review: Denies: Fever Respiratory: Denies: Cough Cardiac: Denies: Chest Pain, Edema Abdominal: Denies: Vomiting Genitourinary Symptoms: Reports: Other - Vitals Vitals: Last Vital Signs Temp 36.8 C 05/10/18 12:06 Pulse 112 H 05/10/18 12:06 Resp 18 05/10/18 12:06 BP 122/75 05/10/18 12:06 Pulse Ox 100 05/10/18 12:06 - Abnormal Lab Findings Abnormal Lab Findings: Abnormal Lab Results 05/10/18 05/10/18 Range/Units 06:01 06:01 RBC 4.16 L (4.2-5.4) M/mm3 Hgb 12.0 L (12.5-16.0) gm/dL Hct 36.6 L (37.0-47.0) % RDW 14.2 H (11.5-14.0) % Neutrophils % 29.6 L (42-75.0) % Lymphocytes % 57.2 H (20-51) % Eosinophils % 3.4 H (0.0-3.0) % Potassium 2.9 L (3.4-4.6) mmol/L Chloride 108 H (97-106) mmol/L Est GFR (Non-Af Amer) 145 H D (60-130) mL/min Random Glucose 114 H (70-110) mg/dL ALT 15 L (19-67) U/L Total Protein 5.5 L (6.2-8.2) gm/dL Albumin 3.1 L (3.4-5.0) gm/dl - Exam Constitutional: Present: Alert, Thin and frail Respiratory: Present: normal breath sounds Cardiovascular/Chest: Present: regular rate, rhythm Abdomen: Present: soft, other - suprapubic catheter Extremity: Absent: lower extremity edema Cauti Physician Documentation - Urinary Catheter Management Suprapubic Urethral Indwelling: Yes Assessment/Plan - Problems/Diagnosis (1) Altered mental status, unspecified Problem: Resolved Qualifiers: Altered mental status type: somnolence Qualified Code(s): R40.0 - Somnolenc e Narrative: Improving. She still has some word finding, but is no longer echoing what she hears. (2) Tachycardia Problem: Acute Narrative: EKG shows sinus rhythm, troponin not elevated. She is complaining of pain, but not increased from this morning. She is oxygenating well. Unclear etiology. S damaso I do not know the etiology of her somnolence, and nonconvulsive seizures are suspected, I am suspicious the two are related, and will try to expedite her transfer. (3) Nonconvulsive generalized seizure disorder Problem: Suspected Narrative: She has been accepted by the [facility], awaiting bed placement to open up. She has a baclofen pump, which can only be discontinued at certain facilities, one of which is the . The baclofen pump precludes her from getting an MRI here. (4) Decreased oral intake Problem: Acute Narrative: Will continue IV fluids until she can maintain po hydration. (5) Shoulder pain Problem: Chronic Qualifiers: Laterality: right (6) Neurogenic bladder Problem: Chronic (7) Multiple sclerosis Problem: Chronic (8) Frequent infections Problem: Chronic Narrative: Urine culture negative. Progress note earlier this admission states that infectious source of her somnolence was ruled out.
[2018-05-10] MEDS ORDERED: MORPHINE SULFATE 2 MG/ML DISP.SYRIN IV ONE ×2 (13:36→19:17)
[2018-05-10 13:51] LABS: Troponin I Less than 0.017 ng/mL (0.00-0.10)
[2018-05-10 13:52] LABS: Anion Gap 14.3 mmol/L (6.8-13.8); BUN/Creatinine Ratio 10.7 (9.0-21.6); Blood Urea Nitrogen 6 mg/dL (3-23); Carbon Dioxide 23.9 mmol/L (24-32.6); Chloride 106 mmol/L (97-106); Estimated Creat Clear 115.8; Glucose * 156 mg/dL (70-110); Potassium 3.2 mmol/L (3.4-4.6); Sodium 141 mmol/L (132-142)
[2018-05-10 13:57] LABS: Calcium * 8.7 mg/dL (7.9-10.9)
--- NOTE | 2018-05-10 15:17 | PN ---
Progesmatt Note - Interim Date: 05/10/18 Time: 15:15 Narrative: Spoke with neurology in , and she no longer meets transfer criteria since her mentation has improved. Her work up can be done on an outpatient basis. Will continue to work up her tachycardia. 05/10/18 15:15
[2018-05-10] MEDS ORDERED: METOPROLOL TARTRATE 25 MG TABLET PO SCH (16:15)
[2018-05-10] MEDS: ACETAMINOPHEN 325 MG TABLET PO PRN (18:45)
[2018-05-10] MEDS: oxyCODONE HCL 5 MG TABLET PO SCH (18:46)
[2018-05-10] MEDS ORDERED: NORMAL SALINE 500 ML IV ONE (20:26)
[2018-05-11] MEDS: oxyCODONE HCL 5 MG TABLET PO SCH ×4 (00:17→17:45)
[2018-05-11] MEDS: HEPARIN SODIUM,PORCINE 5,000 UNITS/ML VIAL SC SCH ×2 (02:04→14:47)
[2018-05-11] MEDS: MORPHINE SULFATE 2 MG/ML DISP.SYRIN IV PRN (02:51)
[2018-05-11] MEDS: ACETAMINOPHEN 325 MG TABLET PO PRN ×3 (05:42→17:46)
[2018-05-11 06:21] LABS: Anion Gap 7.8 mmol/L (6.8-13.8); BUN/Creatinine Ratio 17.1 (9.0-21.6); Calcium * 8.6 mg/dL (7.9-10.9); Carbon Dioxide 25.2 mmol/L (24-32.6); Estimated Creat Clear 158.2
[2018-05-11] MEDS: NORMAL SALINE 1,000 ML IV PRN (07:22)
[2018-05-11] MEDS: POTASSIUM CHLORIDE 20 MEQ TABLET.SA PO SCH ×3 (09:20→17:43)
[2018-05-11] MEDS: TOPIRAMATE 50 MG TABLET PO SCH ×3 (09:21→20:51)
[2018-05-11] MEDS: GABAPENTIN 600 MG TABLET PO SCH ×2 (09:21→20:50)
[2018-05-11] MEDS: ESCITALOPRAM OXALATE 10 MG TAB PO SCH (09:21)
--- NOTE | 2018-05-11 11:05 | PN ---
Subjective - Date and Time Seen Date: 05/11/18 Time: 10:57 Subjective Narrative: Patient reports feeling well this morning. The morphine helped her get some rest. She feels like the p.o. regimen of pain medicine is working for her currently, but she would still like to have as needed morphine to help sleep. She has somewhat increased her p.o. intake. She reports that when she leaves here she will be going to a long term. Her daughter is working on papers. She is willing to go anywhere that will let her bring her bed from home. Objective - Review of Systems Generalized/Overall Review: Denies: Fever Respiratory: Denies: Cough, Shortness of Breath Cardiac: Denies: Chest Pain, Edema Abdominal: Denies: Vomiting Genitourinary Symptoms: Reports: No Symptoms Reported, Other - Has a suprapubic catheter in place Musculoskeletal Complaints: Reports: Joint Pain - Right shoulder, Other - Has blue appearance to feet, which is chronic - Vitals Vitals: Last Vital Signs Temp 36.3 C 05/11/18 08:20 Pulse 88 05/11/18 08:20 Resp 18 05/11/18 08:20 BP 96/54 05/11/18 08:20 Pulse Ox 97 05/11/18 08:20 - Abnormal Lab Findings Abnormal Lab Findings: Abnormal Lab Results 05/10/18 05/11/18 Range/Units 13:29 05:55 Potassium 3.2 L 3.0 L (3.4-4.6) mmol/L Chloride 109 H (97-106) mmol/L Carbon Dioxide 23.9 L (24-32.6) mmol/L Anion Gap 14.3 H (6.8-13.8) mmol/L Est GFR (Non-Af Amer) 170 H D (60-130) mL/min Random Glucose 156 H D (70-110) mg/dL - Exam Constitutional: Present: Alert, Oriented x3, No distress Respiratory: Present: normal breath sounds, other - Unable to listen to lung sounds in her posterior right secondary to limb positioning and her MS Cardiovascular/Chest: Present: regular rate, rhythm /Rectal: Present: Other - Supra pubic catheter in place with pale yellow urine Extremity: Present: other - Blue discoloration of feet, chronic. Absent: lower extremity edema Neurologic: Present: normal mood/affect Cauti Physician Documentation - Urinary Catheter Management Suprapubic Urethral Indwelling: Yes Assessment/Plan - Problems/Diagnosis (1) Altered mental status, unspecified Problem: Resolved Qualifiers: Altered mental status type: somnolence Qualified Code(s): R40.0 - Somnolence Narrative: Resolved. Unknown etiology. There was suspicion she may had been having nonconvulsive seizures, however this resolved before he could be evaluated with MRI or EEG. (2) Tachycardia Problem: Resolved Narrative: Unknown etiology. She did not have signs of infection, increased pain, increased anxiety at the time. She was given 25 mg of metoprolol, which decreased her blood pressure and heart rate. Metoprolol DC'd. (3) Decreased oral intake Problem: Acute Narrative: She is advancing her diet. If her blood pressure is acceptable, will DC fluids. (4) Shoulder pain Problem: Chronic Qualifiers: Laterality: right (5) Neurogenic bladder Problem: Chronic (6) Multiple sclerosis Problem: Chronic Narrative: Patient has very limited mobility, and home health feels like her needs are more than they can provide. She has been released from [facility]. Steps have been started to get her into a long term. Her needs are also more than her family are capable of managing, so will need to go to a long term after discharge. The [facility] has been mentioned, and she also mentioned potentially going to a facility in [place]. Her current pain control regimen seems to be working for her, so we will continue oxycodone and acetaminophen (7) Frequent infections Problem: Chronic (8) Nonconvulsive generalized seizure disorder Problem: Suspected
[2018-05-11] MEDS: MULTIVITAMIN/IRON/FOLIC ACID 1 TAB TABLET PO SCH (12:14)
[2018-05-11] MEDS: FLAXSEED PO SCH ×2 (12:15→17:44)
[2018-05-11] MEDS: CHOLECALCIFEROL 1,000 UNIT CAPSULE PO SCH (12:16)
[2018-05-11] MEDS: CORAL CALCIUM PO SCH ×2 (12:18→17:43)
[2018-05-12] MEDS: oxyCODONE HCL 5 MG TABLET PO SCH ×4 (00:09→18:14)
[2018-05-12] MEDS: ACETAMINOPHEN 325 MG TABLET PO PRN ×4 (00:09→18:14)
[2018-05-12] MEDS: HEPARIN SODIUM,PORCINE 5,000 UNITS/ML VIAL SC SCH ×2 (02:41→14:31)
[2018-05-12 06:37] LABS: Anion Gap 13.5 mmol/L (6.8-13.8); BUN/Creatinine Ratio 15.8 (9.0-21.6); Calcium * 8.4 mg/dL (7.9-10.9); Carbon Dioxide 24.7 mmol/L (24-32.6); Estimated Creat Clear 113.8; Potassium 4.2 mmol/L (3.4-4.6)
[2018-05-12] MEDS: MULTIVITAMIN/IRON/FOLIC ACID 1 TAB TABLET PO SCH (08:46)
[2018-05-12] MEDS: CORAL CALCIUM PO SCH ×2 (08:46→17:52)
[2018-05-12] MEDS: CHOLECALCIFEROL 1,000 UNIT CAPSULE PO SCH (08:46)
[2018-05-12] MEDS: ESCITALOPRAM OXALATE 10 MG TAB PO SCH (08:46)
[2018-05-12] MEDS: FLAXSEED PO SCH ×2 (08:48→17:52)
[2018-05-12] MEDS: GABAPENTIN 600 MG TABLET PO SCH (08:48)
[2018-05-12] MEDS: POTASSIUM CHLORIDE 20 MEQ TABLET.SA PO SCH ×3 (08:48→17:53)
--- NOTE | 2018-05-12 09:39 | PN ---
Subjective - Date and Time Seen Date: 05/12/18 Time: 08:50 Subjective Narrative: She states she feels well today. Denies any pain and states that oxycodone is working well for her with scheduled dosing. Complains today of worsening tremors making it difficult for her to feed herself and use her phone. She is tolerating her diet and is awaiting [facility] to a [facility]. Objective Objective Narrative: Mentation back to baseline. - Review of Systems Generalized/Overall Review: Denies: Fever Respiratory: Denies: Shortness of Breath Cardiac: Denies: Chest Pain Abdominal: Denies: Abdominal Pain Musculoskeletal Complaints: Denies: Joint Pain Misc: All systems neg except as marked - Vitals Vitals: Last Vital Signs Temp 36.2 C 05/12/18 08:00 Pulse 110 H 05/12/18 08:00 Resp 20 05/12/18 08:00 BP 118/76 05/12/18 08:00 Pulse Ox 96 05/12/18 08:00 - Abnormal Lab Findings Abnormal Lab Findings: Abnormal Lab Results 05/12/18 Range/Units 06:05 Sodium 144 H (132-142) mmol/L Plasma Sodium 144 H (130-142) mmol/L Chloride 110 H (97-106) mmol/L - Exam Constitutional: Present: Alert, Cooperative, Well developed, Well nourished, No distress ENT Exam: Present: hearing grossly normal Neck: Present: normal inspection Respiratory: Present: lungs clear, normal breath sounds, no respiratory distress Cardiovascular/Chest: Present: normal peripheral pulses, no murmur, tachycardia Abdomen: Present: Normal bowel sounds, soft, nontender Extremity: Present: non-tender, lower extremity edema Skin Exam: Present: normal color, warm/dry Appearance: Present: appropriate appearance, appropriate insight Eye contact: Present: cooperative, good eye contact Thoughts: Present: normal thought pattern Cauti Physician Documentation - Urinary Catheter Management Suprapubic Urethral Indwelling: Yes Assessment/Plan Plan Narrative: 57-year-old female who has a history of multiple sclerosis presenting with altered mental status. Her neurologist believed that it was possibly related to nonconvulsive seizures. She was unable to transfer to the [facility] for EEG monitoring due to bed unavailability. Her mentation is back to baseline now and she is awaiting discharge to a jail. - Problems/Diagnosis (1) Altered mental status, unspecified Problem: Resolved Qualifiers: Altered mental status type: somnolence Qualified Code(s): R40.0 - Somnolence Narrative: Possibly secondary to a post ictal state. She was unable to transfer in a timely fashion to the [facility] due to no bed availability (for EEG monitoring). Her mentation is back to baseline. She will follow-up with her neurologist as an outpatient. (2) Shoulder pain Problem: Chronic Qualifiers: Laterality: right Narrative: Resolved with the scheduled oxycodone. Continue current medications. (3) GERD (gastroesophageal reflux disease) Problem: Chronic Narrative: Stable no changes. (4) Nonconvulsive generalized seizure disorder Problem: Suspected Narrative: Possible nonconvulsive seizures. She has unable to transfer to the [facility] for EEG monitoring. She will follow-up with her neurologist as an outpatient. (5) Hypokalemia Problem: Acute Narrative: Replete as needed, unclear why her potassium is dropping. (6) Decreased oral intake Problem: Acute Narrative: She states she does not eat much at home at baseline. Typically breakfast includes fruit fresh fruit and yogurt. She does not eat lunch and may snack on a granola bar if she gets hungry. When she eats a small dinner. She states that she and she is not active she does not need a lot of caloric intake.
[2018-05-12] MEDS: TOPIRAMATE 50 MG TABLET PO SCH ×3 (09:47→12:11)
[2018-05-13] MEDS: oxyCODONE HCL 5 MG TABLET PO SCH ×5 (01:00→23:56)
[2018-05-13] MEDS: ACETAMINOPHEN 325 MG TABLET PO PRN (01:01)
[2018-05-13] MEDS: GABAPENTIN 600 MG TABLET PO SCH ×3 (01:01→20:54)
[2018-05-13] MEDS: TOPIRAMATE 50 MG TABLET PO SCH ×4 (01:02→20:54)
[2018-05-13] MEDS: MORPHINE SULFATE 2 MG/ML DISP.SYRIN IV PRN (01:14)
[2018-05-13] MEDS: HEPARIN SOD.,PORCINE 100 UNITS/ML IV PRN (01:27)
[2018-05-13] MEDS: HEPARIN SODIUM,PORCINE 5,000 UNITS/ML VIAL SC SCH ×2 (01:47→14:42)
[2018-05-13 05:28] LABS: Hematocrit 38.1 % (37.0-47.0); Hemoglobin 12.2 gm/dL (12.5-16.0); Mean Cell Volume 91.4 fl (78-100); Mean Corpuscular Hemoglobin 29.3 pg (27-31); Mean Platelet Volume 9.1 fl (8-12.5); Neutrophil # 1.3 K/mm3 (1.3-6.0); Neutrophil % 27.2 % (42-75.0); Platelet Count 292 K/mm3 (150-450); Red Blood Count 4.17 M/mm3 (4.2-5.4); White Blood Count 4.9 K/mm3 (4.0-10.5)
[2018-05-13 05:51] LABS: Albumin * 3.1 gm/dl (3.4-5.0); Anion Gap 13.7 mmol/L (6.8-13.8); Bilirubin, Total 0.3 mg/dL (0.0-1.1); Ca. Corrected For Albumin 9.2 mg/dL (8.4-10.2); Calcium * 8.8 mg/dL (7.9-10.9); Carbon Dioxide 24.7 mmol/L (24-32.6); Potassium 4.4 mmol/L (3.4-4.6); Total Protein 5.6 gm/dL (6.2-8.2)
[2018-05-13] MEDS: CORAL CALCIUM PO SCH ×2 (08:36→17:17)
[2018-05-13] MEDS: POTASSIUM CHLORIDE 20 MEQ TABLET.SA PO SCH ×3 (08:37→17:16)
[2018-05-13] MEDS: ESCITALOPRAM OXALATE 10 MG TAB PO SCH (08:37)
[2018-05-13] MEDS: CHOLECALCIFEROL 1,000 UNIT CAPSULE PO SCH (08:38)
[2018-05-13] MEDS: MULTIVITAMIN/IRON/FOLIC ACID 1 TAB TABLET PO SCH (08:38)
[2018-05-13] MEDS: FLAXSEED PO SCH ×2 (08:39→17:16)
[2018-05-13 11:23] LABS: Urine Bilirubin Negative (NEGATIVE); Urine Blood 25 /ul (NEGATIVE); Urine Ketone Negative (NEGATIVE); Urine Nitrite Negative (NEGATIVE); Urine Protein Negative (NEGATIVE); Urine Urobilinogen Normal (NORMAL); Urine pH 7.5 pH (5.0-7.0)
--- NOTE | 2018-05-13 11:35 | PN ---
Subjective - Date and Time Seen Date: 05/13/18 Time: 10:20 Subjective Narrative: She states she feels good and has no complaints. Objective - Review of Systems Generalized/Overall Review: Denies: Chills, Fever Respiratory: Denies: Shortness of Breath Cardiac: Denies: Chest Pain Abdominal: Denies: Abdominal Pain Musculoskeletal Complaints: Denies: Joint Pain Misc: All systems neg except as marked - Vitals Vitals: Last Vital Signs Temp 36.4 C 05/13/18 11:00 Pulse 99 05/13/18 11:00 Resp 16 05/13/18 11:00 BP 104/62 05/13/18 11:00 Pulse Ox 94 05/13/18 11:00 - Abnormal Lab Findings Abnormal Lab Findings: Abnormal Lab Results 05/13/18 05/13/18 Range/Units 05:20 05:20 RBC 4.17 L (4.2-5.4) M/mm3 Hgb 12.2 L (12.5-16.0) gm/dL RDW 15.0 H (11.5-14.0) % Neutrophils % 27.2 L (42-75.0) % Lymphocytes % 58.5 H (20-51) % Eosinophils % 5.5 H (0.0-3.0) % Basophils % 1.4 H (0.0-1.0) % Chloride 108 H (97-106) mmol/L Total Protein 5.6 L (6.2-8.2) gm/dL Albumin 3.1 L (3.4-5.0) gm/dl - Exam Constitutional: Present: Alert, Oriented x3, Cooperative, Well developed, Well nourished, Middle aged ENT Exam: Present: hearing grossly normal Neck: Present: non-tender, supple. Absent: lymphadenopathy (R), lymphadenopathy (L) Respiratory: Present: lungs clear, normal breath sounds, no respiratory distress, no accessory muscle use, No wheezing. Absent: crackles, rhonchi Cardiovascular/Chest: Present: regular rate, rhythm, no murmur Abdomen: Present: Normal bowel sounds, soft, nontender Extremity: Present: pedal edema Skin Exam: Present: normal color, warm/dry Appearance: Present: appropriate appearance Eye contact: Present: cooperative, good eye contact Thoughts: Present: normal thought pattern, normal mood /affect Cauti Physician Documentation - Urinary Catheter Management Suprapubic Urethral Indwelling: Yes Assessment/Plan Plan Narrative: 57-year-old female who has a history of multiple sclerosis presenting with altered mental status. Her neurologist believed that it was possibly related to nonconvulsive seizures. She was unable to transfer to the [facility] for EEG monitoring due to bed unavailability. Her mentation is back to baseline now and she is awaiting discharge to a halfway. - Problems/Diagnosis (1) Altered mental status, unspecified Problem: Resolved Qualifiers: Altered mental status type: somnolence Qualified Code(s): R40.0 - Somnolence Narrative: Possibly secondary to nonconvulsive seizures. Unable to send her to the [facility] during the episode for EEG monitoring due to lack of bed availability. She will follow-up with her neurologist as an outpatient. (2) Shoulder pain Problem: Resolved Qualifiers: Chronicity: chronic Laterality: right Qualified Code(s): M25.511 - Pain in right shoulder; G89.29 - Other chronic pain Narrative: Resolved continue with oxycodone and Tylenol (3) GERD (gastroesophageal reflux disease) Problem: Chronic Narrative: Stable (4) Nonconvulsive generalized seizure disorder Problem: Suspected Narrative: Unable to fully diagnose because she did not receive an EEG due to lack of bed availability at the [facility]. (5) Hypokalemia Problem: Resolved Narrative: Within normal limits today. Continue to monitor chemistry. Continue with supplementation as needed. (6) Decreased oral intake Problem: Resolved Narrative: She has good oral intake continue her baseline.
[2018-05-13 11:47] LABS: Urine Appearance Slightly Cloudy (CLEAR); Urine Bacteria 1+; Urine Color Pale Yellow
[2018-05-14] MEDS: HYDROcodone/ACETAMINOPHEN 1 EACH TABLET PO PRN (01:37)
[2018-05-14] MEDS: HEPARIN SODIUM,PORCINE 5,000 UNITS/ML VIAL SC SCH (02:26)
[2018-05-14] MEDS: ACETAMINOPHEN 325 MG TABLET PO PRN ×2 (05:34→11:35)
[2018-05-14] MEDS: oxyCODONE HCL 5 MG TABLET PO SCH ×2 (05:34→11:35)
[2018-05-14 05:42] LABS: Hematocrit 38.4 % (37.0-47.0); Hemoglobin 12.2 gm/dL (12.5-16.0); Mean Cell Volume 90.4 fl (78-100); Mean Corpuscular Hemoglobin 28.7 pg (27-31); Mean Corpuscular Hgb Conc 31.8 g/dl (32-36); Mean Platelet Volume 9.3 fl (8-12.5); Neutrophil # 2.3 K/mm3 (1.3-6.0); Neutrophil % 40.9 % (42-75.0); Platelet Count 304 K/mm3 (150-450); Red Blood Count 4.25 M/mm3 (4.2-5.4); Red Cell Distribution Width 14.9 % (11.5-14.0); White Blood Count 5.7 K/mm3 (4.0-10.5)
[2018-05-14 05:56] LABS: Albumin * 3.1 gm/dl (3.4-5.0); Anion Gap 12.2 mmol/L (6.8-13.8); BUN/Creatinine Ratio 22.4 (9.0-21.6); Bilirubin, Total 0.2 mg/dL (0.0-1.1); Ca. Corrected For Albumin 9.4 mg/dL (8.4-10.2); Carbon Dioxide 26.1 mmol/L (24-32.6); Potassium 4.3 mmol/L (3.4-4.6); Total Protein 5.7 gm/dL (6.2-8.2)
[2018-05-14] MEDS: MULTIVITAMIN/IRON/FOLIC ACID 1 TAB TABLET PO SCH (08:23)
[2018-05-14] MEDS: POTASSIUM CHLORIDE 20 MEQ TABLET.SA PO SCH (08:23)
[2018-05-14] MEDS: ESCITALOPRAM OXALATE 10 MG TAB PO SCH (08:23)
[2018-05-14] MEDS: CORAL CALCIUM PO SCH (08:24)
[2018-05-14] MEDS: GABAPENTIN 600 MG TABLET PO SCH (08:24)
[2018-05-14] MEDS: CHOLECALCIFEROL 1,000 UNIT CAPSULE PO SCH (08:25)
[2018-05-14] MEDS: FLAXSEED PO SCH (08:25)
[2018-05-14] MEDS: TOPIRAMATE 50 MG TABLET PO SCH (08:25)
--- NOTE | 2018-05-14 11:24 | DS ---
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 Initially it was thought that she had a urinary tract infection. She had been treated with tobramycin for 7 days prior to presentation. Urine culture showed no growth. Her neurologist group was contacted and believed that it was possibly related to nonconvulsive seizures. She was unable to transfer to the [facility] for EEG monitoring due to bed unavailability. Her mentation is back to baseline now and she is going to be discharged to a jail today. Urine culture was repeated at the request of her urologist at the [facility] and they will follow-up on the results. She was not having any urinary symptoms at the time the culture was drawn. Procedures Performed: none Results and Findings: Pending Mircobiology Results 05/13/18 11:11 Urine,Catheterized Urine Culture - Preliminary Gram Negative Bacilli 05/10/18 19:05 Blood Blood Culture - Preliminary NO GROWTH AFTER 48 HOURS 05/10/18 19:35 Blood Blood Culture - Preliminary NO GROWTH AFTER 48 HOURS Lab Pending Results 05/07/18 15:00: WBC 5.5, RBC 4.50, Hgb 13.0, Hct 40.3, MCV 89.6, MCH 28.9, MCHC 32.3, RDW 14.6 H, Plt Count 286, MPV 9.3, Immature Gran % (Auto) 0.20, Immature Gran # (Auto) 0.01, Neutrophils % 49.4, Lymphocytes % 36.6, Monocytes % 8.0, Eosinophils % 4.7 H, Basophils % 1.1 H, Nucleated RBC % 0.0, Neutrophils # 2.7, Lymphocytes # 2.02, Monocytes # 0.4, Eosinophils # 0.3, Absolute Basophils 0.1 05/07/18 15:00: Sodium 142, Plasma Sodium 142, Potassium 3.5, Chloride 106, Carbon Dioxide 25.8, Anion Gap 13.7, BUN 11, Creatinine 0.49, Est GFR (Non-Af Amer) 138 H, BUN/Creatinine Ratio 22.4 H, Random Glucose 90, Calcium 8.9, Calcium Adj for Albumin 8.8, Total Bilirubin 0.3, AST 17, ALT 21, Alkaline Phosphatase 71, C-Reactive Prot, Quant 0.2, Total Protein 6.3, Albumin 3.7 05/07/18 15:00: Lactic Acid, Venous 0.8 05/07/18 17:54: pCO2 34.7, pO2 346.8 H, HCO3 22.5, Total CO2 23.6, Base Excess - 1.2, ABG pH 7.43, ABG O2 Sat (Measured) 99.8 H 05/07/18 18:00: Lactic Acid, Venous 0.4 05/07/18 : Urine Color Yellow, Urine Appearance Clear, Urine pH 7.5, Ur Specific Bowen 1.015, Urine Protein Negative, Urine Glucose (UA) Negative, Urine Ketones Negative, Urine Blood 250 H, Urine Nitrate Positive H, Urine Bilirubin Negative, Urine Urobilinogen Normal, Ur Leukocyte Esterase 75 H, Urine RBC 10-25 H, Urine WBC 5-10 H, Ur Epithelial Cells 0-5, Urine Bacteria 1+ H, Urine Culture Comments Culture to follow 05/08/18 05:00: WBC 5.5, RBC 4.18 L, Hgb 12.2 L, Hct 37.1, MCV 88.8, MCH 29.2, MCHC 32.9, RDW 14.3 H, Plt Count 272, MPV 9.4, Immature Gran % (Auto) 0.20, Immature Gran # (Auto) 0.01, Neutrophils % 45.1, Lymphocytes % 42.6, Monocytes % 7.0, Eosinophils % 4.2 H, Basophils % 0.9, Nucleated RBC % 0.0, Neutrophils # 2.5, Lymphocytes # 2.32, Monocytes # 0.4, Eosinophils # 0.2, Absolute Basophils 0.1 05/08/18 05:00: Sodium 144 H, Plasma Sodium 144 H, Potassium 3.2 L, Chloride 110 H, Carbon Dioxide 22.1 L, Anion Gap 15.1 H, BUN 9, Creatinine 0.52, Est GFR (Non-Af Amer) 129, BUN/Creatinine Ratio 17.3, Random Glucose 97, Calcium 8.4, Calcium Adj for Albumin 8.7, Total Bilirubin 0.3, AST 18, ALT 16 L, Alkaline Phosphatase 66, Total Protein 5.6 L, Albumin 3.2 L 05/09/18 05:40: WBC 4.9, RBC 4.42, Hgb 12.7, Hct 39.2, MCV 88.7, MCH 28.7, MCHC 32.4, RDW 14.3 H, Plt Count 274, MPV 9.5, Immature Gran % (Auto) 0.00 L, Immature Gran # (Auto) 0.00, Neutrophils % 41.3 L, Lymphocytes % 44.9, Monocytes % 9.1 H, Eosinophils % 3.7 H, Basophils % 1.0, Nucleated RBC % 0.0, Neutrophils # 2.0, Lymphocytes # 2.18, Monocytes # 0.4, Eosinophils # 0.2, Absolute Basophils 0.1 05/09/18 05:40: Sodium 142, Plasma Sodium 142, Potassium 3.1 L, Chloride 107 H, Carbon Dioxide 23.7 L, Anion Gap 14.4 H, BUN 10, Creatinine 0.56, Est GFR (Non- Af Amer) 119, BUN/Creatinine Ratio 17.9, Random Glucose 101, Calcium 8.7, Calcium Adj for Albumin 8.9, Total Bilirubin 0.3, AST 16, ALT 17 L, Alkaline Phosphatase 66, Total Protein 6.0 L, Albumin 3.4 05/10/18 06:01: WBC 5.0, RBC 4.16 L, Hgb 12.0 L, Hct 36.6 L, MCV 88.0, MCH 28.8, MCHC 32.8, RDW 14.2 H, Plt Count 277, MPV 9.5, Immature Gran % (Auto) 0.20, Immature Gran # (Auto) 0.01, Neutrophils % 29.6 L, Lymphocytes % 57.2 H, Monocytes % 8.6, Eosinophils % 3.4 H, Basophils % 1.0, Nucleated RBC % 0.0, Neutrophils # 1.5, Lymphocytes # 2.85, Monocytes # 0.4, Eosinophils # 0.2, Absolute Basophils 0.1 05/10/18 06:01: Sodium 142, Plasma Sodium 142, Potassium 2.9 L, Chloride 108 H, Carbon Dioxide 24.6, Anion Gap 12.3, BUN 6, Creatinine 0.47, Est GFR (Non-Af Amer) 145 H D, BUN/Creatinine Ratio 12.8, Random Glucose 114 H, Calcium 8.1, Calcium Adj for Albumin 8.5, Total Bilirubin 0.3, AST 16, ALT 15 L, Alkaline Phosphatase 61, Total Protein 5.5 L, Albumin 3.1 L 05/10/18 13:29: Sodium 141, Plasma Sodium 142, Potassium 3.2 L, Chloride 106, Carbon Dioxide 23.9 L, Anion Gap 14.3 H, BUN 6, Creatinine 0.56, Est GFR (Non-Af Amer) 119, BUN/Creatinine Ratio 10.7, Random Glucose 156 H D, Calcium 8.7, Troponin I Less than 0.017 05/10/18 19:05: Troponin I Less than 0.017 05/11/18 05:55: Sodium 139, Plasma Sodium 139, Potassium 3.0 L, Chloride 109 H, Carbon Dioxide 25.2, Anion Gap 7.8, BUN 7, Creatinine 0.41, Est GFR (Non-Af Amer) 170 H D, BUN/Creatinine Ratio 17.1, Random Glucose 96 D, Calcium 8.6 05/12/18 06:05: Sodium 144 H, Plasma Sodium 144 H, Potassium 4.2 D, Chloride 110 H, Carbon Dioxide 24.7, Anion Gap 13.5, BUN 9, Creatinine 0.57, Est GFR (Non-Af Amer) 116 D, BUN/Creatinine Ratio 15.8, Random Glucose 94, Calcium 8.4 05/13/18 05:20: WBC 4.9, RBC 4.17 L, Hgb 12.2 L, Hct 38.1, MCV 91.4, MCH 29.3, MCHC 32.0, RDW 15.0 H, Plt Count 292, MPV 9.1, Immature Gran % (Auto) 0.40, Immature Gran # (Auto) 0.02, Neutrophils % 27.2 L, Lymphocytes % 58.5 H, Monocytes % 7.0, Eosinophils % 5.5 H, Basophils % 1.4 H, Nucleated RBC % 0.0, Neutrophils # 1.3, Lymphocytes # 2.85, Monocytes # 0.3, Eosinophils # 0.3, Absolute Basophils 0.1 05/13/18 05:20: Sodium 142, Plasma Sodium 142, Potassium 4.4, Chloride 108 H, Carbon Dioxide 24.7, Anion Gap 13.7, BUN 11, Creatinine 0.58, Est GFR (Non-Af Amer) 114, BUN/Creatinine Ratio 19.0, Random Glucose 97, Calcium 8.8, Calcium Adj for Albumin 9.2, Total Bilirubin 0.3, AST 27, ALT 27, Alkaline Phosphatase 66, Total Protein 5.6 L, Albumin 3.1 L 05/13/18 11:11: Urine Color Pale yellow, Urine Appearance Slightly cloudy, Urine pH 7.5, Ur Specific Bowen 1.010, Urine Protein Negative, Urine Glucose (UA) Negative, Urine Ketones Negative, Urine Blood 25 H, Urine Nitrate Negative, Urine Bilirubin Negative, Urine Urobilinogen Normal, Ur Leukocyte Esterase 100 H, Urine RBC 5-10 H, Urine WBC 10-25 H, Ur Epithelial Cells 5-10 H, Urine Bacteria 1+ H, Urine Culture Comments Culture to follow 05/14/18 05:33: WBC 5.7, RBC 4.25, Hgb 12.2 L, Hct 38.4, MCV 90.4, MCH 28.7, MCHC 31.8 L, RDW 14.9 H, Plt Count 304, MPV 9.3, Immature Gran % (Auto) 0.20, Immature Gran # (Auto) 0.01, Neutrophils % 40.9 L, Lymphocytes % 45.5, Monocytes % 8.1, Eosinophils % 4.4 H, Basophils % 0.9, Nucleated RBC % 0.0, Neutrophils # 2.3, Lymphocytes # 2.59, Monocytes # 0.5, Eosinophils # 0.3, Absolute Basophils 0.1 05/14/18 05:33: Sodium 139, Plasma Sodium 139, Potassium 4.3, Chloride 105, Carbon Dioxide 26.1, Anion Gap 12.2, BUN 13, Creatinine 0.58, Est GFR (Non-Af Amer) 114, BUN/Creatinine Ratio 22.4 H, Random Glucose 101, Calcium 9.0, Calcium Adj for Albumin 9.4, Total Bilirubin 0.2, AST 67 H, ALT 56, Alkaline Phosphatase 72, Total Protein 5.7 L, Albumin 3.1 L Discharge Location: Other - [facility] Disposition: SNF Condition: Stable Level of Care: SNF Discharge Activity: Non-Weight bearing Discharge Diet: General/regular food Care Home Therapy: Physicial Therapy, Occupation Therapy Referrals: Laurence Goldsmith MD [Primary Care Provider] - Problem Oriented Discharge Instructions to Patient/Family: Urinary Tract Infection, Adult, [id number] Additional Patient Instructions (free text): [facility] [place]. Call report to [phone]. Fax orders and DC summary to [phone]. No laxatives or suppositories. Patient has BM every 2-6 days and does not want interventions done for this. Prescriptions (Any new or edited meds): Oxycodone HCl/Acetaminophen [Endocet 10-325 mg Tablet] 1 ea PO Q6H #120 tab Complete Home Medications List: Complete Home Medication List: Mirabegron [Myrbetriq] 25 mg PO DAILY 07/11/14 Gabapentin [Neurontin] 1,200 mg PO BID 07/13/14 Topiramate [Topamax] 100 mg PO QAM #0 04/28/15 Topiramate [Topamax] 25 mg PO 1200,2100 07/25/17 natalizumab 300 mg/15 mL intravenous solution 300 mg IV Q28D ml 09/09/17 Baclofen 20 mg PO TID PRN tab 04/06/18 Escitalopram Oxalate [Lexapro] 40 mg PO DAILY tab 04/06/18 Tens Units and Tens Electrodes [Ra Pain Relief Device] 0 unit .ROUTE .MEDSUPPLY 05/07/18 Calcium Carb/D3/Mag Aa Chelate [Coral Calcium Capsule] 2 tab PO BID 05/11/18 Cholecalciferol (Vitamin D3) [Vitamin D3] 1,000 unit PO DAILY 05/11/18 Flaxseed Oil [Flax Seed Oil] 2 tab PO QPM 05/11/18 Flaxseed Oil [Flax Seed Oil] 3 tab PO QAM 05/11/18 Multivitamin [Poly-Vitamin] 1 ea PO DAILY 05/11/18 Act.charcoal/Iron/Sodium/Water [Thermacare Heatwrap] 1 ea TOPICAL Q12H PRN 05/14/18 Aspirin/Acetaminophen/Caffeine [Excedrin Migraine Caplet] 2 ea PO Q6H PRN 05/14/18 Chlorhexidine/Glycerin/He-Cell [Lubricating Jelly] 1 appl TOPICAL DAILY 05/14/18 Econazole Nitrate [Spectazole 1%] 1 appl TOPICAL DAILY PRN 05/14/18 Lidocaine/Prilocaine [Emla] 1 appl TOPICAL PRN PRN 05/14/18 Miconazole Nitrate [Desenex] 1 appl TOPICAL DAILY 05/14/18 Oxycodone HCl/Acetaminophen [Endocet 10-325 mg Tablet] 1 ea PO Q6H #120 tab 05/14/18 Polyvinyl Alcohol [Artificial Tears] 1 drp EACHEYE Q1H PRN 05/14/18 Vit A Acet/Vit C/Zinc/Propolis [Zinc Lozenges] 1 ea PO PRN PRN 05/14/18 Zinc Oxide/Petrolatum,White [Rambo Moist Barrier Cream] 1 appl TOPICAL DAILY 05/14/18
[2018-05-14 12:17] VITALS: BP 108/65
== END 2018-05-14 12:20 | DRG 101 ==
LOC: ER 14:24 → MS 14:24
PROVIDERS: ADMIT Internal Medicine; ATTEND Internal Medicine
CPT/HCPCS: 36415; 36600; 71010; 71045; 80048; 80053; 81001; 82803; 83605; 84484; 85025; 86140; 87040; 87077; 87081; 87086; 87186; 93005; 96361; 96365; 96366; 96375; 99285

== ENCOUNTER 2019-06-28 11:02 | Observation (INO) ==
[2019-06-28] MEDS: NORMAL SALINE 1,000 ML IV SCH ×2 (11:25→12:22)
--- NOTE | 2019-06-28 11:30 | ERNOTE ---
Medical Problem HPI - Narrative Date of Service: 06/28/19 - General Chief Complaint: General Assessment Time Seen by Provider: 06/28/19 11:03 Source: patient, EMS, RN notes reviewed, jail records Exam Limitations: clinical condition - Immun/Allergies/Home Medications Immunizations: IMMUNIZATION HX Immunizations Up to Date Yes History of Influenza Vaccine Yes Hx Pneumococcal Vaccination Yes Allergies/Adverse Reactions: Allergies modafinil [From Provigil] Allergy (Intermediate, Verified 06/28/19 11:10) Hives adhesive Allergy (Mild, Verified 06/28/19 11:10) Other Rips off skin Sulfa (Sulfonamide Antibiotics) [Sulfa(Sulfonamide Antibiotics)] Allergy (Mild, Verified 06/28/19 11:10) Hives lactose Adverse Reaction (Verified 06/28/19 11:10) stomach issues Home Medications: HOME MEDICATIONS Mirabegron [Myrbetriq] 25 mg PO DAILY 07/11/14 [Last Taken 05/01/15 08:00] Gabapentin [Neurontin] 1,200 mg PO BID 07/13/14 [Last Taken 05/01/15 08:00] Topiramate [Topamax] 100 mg PO QAM #0 04/28/15 [Last Taken 05/01/15 08:00] Topiramate [Topamax] 50 mg PO 1200,2100 07/25/17 [Last Taken Unknown] natalizumab 300 mg/15 mL intravenous solution 300 mg IV Q28D ml 09/09/17 [Last Taken Unknown] Baclofen 20 mg PO TID PRN tab 04/06/18 [Last Taken Unknown] Escitalopram Oxalate [Lexapro] 40 mg PO DAILY tab 04/06/18 [Last Taken Unknown] Tens Units and Tens Electrodes [Ra Pain Relief Device] 0 unit .ROUTE .MEDSUPPLY 05/07/18 [Last Taken Unknown] Calcium Carb/D3/Mag Aa Chelate [Coral Calcium Capsule] 2 tab PO BID 05/11/18 [Last Taken Unknown] Cholecalciferol (Vitamin D3) [Vitamin D3] 1,000 unit PO DAILY 05/11/18 [Last Taken Unknown] Flaxseed Oil [Flax Seed Oil] 2 tab PO QPM 05/11/18 [Last Taken Unknown] Flaxseed Oil [Flax Seed Oil] 3 tab PO QAM 05/11/18 [Last Taken Unknown] Multivitamin [Poly-Vitamin] 1 ea PO DAILY 05/11/18 [Last Taken Unknown] Act.charcoal/Iron/Sodium/Water [Thermacare Heatwrap] 1 ea TOPICAL Q12H PRN 05/14/18 [Last Taken Unknown] Aspirin/Acetaminophen/Caffeine [Excedrin Migraine Caplet] 2 ea PO Q6H PRN 05/14/18 [Last Taken Unknown] Chlorhexidine/Glycerin/He-Cell [Lubricating Jelly] 1 appl TOPICAL DAILY 05/14/18 [Last Taken Unknown] Econazole Nitrate [Spectazole 1%] 1 appl TOPICAL DAILY PRN 05/14/18 [Last Taken Unknown] Lidocaine/Prilocaine [Emla] 1 appl TOPICAL PRN PRN 05/14/18 [Last Taken Unknown] Miconazole Nitrate [Desenex] 1 appl TOPICAL DAILY 05/14/18 [Last Taken Unknown] Polyvinyl Alcohol [Artificial Tears] 1 drp EACHEYE Q1H PRN 05/14/18 [Last Taken Unknown] Vit A Acet/Vit C/Zinc/Propolis [Zinc Lozenges] 1 ea PO PRN PRN 05/14/18 [Last Taken Unknown] Zinc Oxide/Petrolatum,White [Rambo Moist Barrier Cream] 1 appl TOPICAL DAILY 05/14/18 [Last Taken Unknown] oxycodone 5 mg tablet 5 mg PO Q6H PRN #120 tab 06/01/19 [Last Taken Unknown] ibuprofen 800 mg tablet 800 mg PO BID PRN #60 tab 06/02/19 [Last Taken Unknown] Bisacodyl 10 mg RC PRN PRN 06/13/19 [Last Taken Unknown] Carbamazepine [Carbatrol] 200 mg PO BID 06/13/19 [Last Taken Unknown] Docusate Sodium [Dok] 200 mg PO BID 06/13/19 [Last Taken Unknown] Loperamide HCl [Imodium A-D] 4 mg PO DAILY PRN 06/13/19 [Last Taken Unknown] Potassium Chloride 40 meq PO DAILY 06/13/19 [Last Taken Unknown] Saccharomyces boulardii 250 mg capsule 250 mg PO BID #56 cap 06/23/19 [Last Taken Unknown] calcium carbonate 390 mg calcium (1,000 mg) tablet 780 mg PO DAILY #60 tab 06/24/19 [Last Taken Unknown] - Pain Score Pain Score #1 Pain Score: 8 - History of Present History Narrative: The patient is a 58 year old female who presents for generalized body aches and fatigue which has been gradually worsening over the past 3 days. There are associated symptoms of diarrhea. The patient reports generalized bodyaches, 8/10. There are no alleviating factors. There are aggravating factors of movement. Previous treatments have included: none. The past medical history includes: Anxiety, DDD, depression, GERD, MS, neurogenic bladder with placement of suprapubic catheter. The social history is negative. The patient has had no known ill contacts. Patient resides at [facility]. Patient was previously receiving tobramycin IM injections for UTI with sepsis this was completed and patient was switched to ampicillin which was discontinued yesterday due to positive C. difficile testing. Patient states she developed diarrheal stools approximately 3 days ago which have persisted since noted positive testing of C. difficile yesterday. Review of Systems - Review of Systems Constitutional: Present: fatigue. Absent: fever, chills EYE: Present: no symptoms reported ENT: Absent: ear pain, nasal drainage, sore throat Respiratory: Present: no symptoms reported. Absent: shortness of breath, cough Cardiology: Present: no symptoms reported. Absent: chest pain Gastrointestinal/Abdominal: Present: diarrhea, abdominal pain. Absent: nausea, vomiting Musculoskeletal: Present: back pain, joint pain Skin: Present: no symptoms reported. Absent: rash Neurological: Present: weakness All Other Systems: All systems neg except as marked Medical History (Last Reviewed 06/28/19 @ 11:25 by KARLO Cortez) History of UTI (Acute) Trochanteric bursitis (Acute) Shoulder pain (Resolved) Shoulder impingement (Chronic) Scoliosis (Chronic) Neurogenic bladder (Chronic) H/O dysmenorrhea (Chronic) Multiple sclerosis (Chronic) Onset Date: 1992 Incomplete bladder emptying (Chronic) Hip pain (Chronic) GERD (gastroesophageal reflux disease) (Chronic) Frequent infections (Chronic) Merritt-Danlos syndrome (Chronic) Depression (Chronic) DDD (degenerative disc disease) (Chronic) Colon polyps (Acute) Onset Date: 12/20/10 Sascha Anxiety (Chronic) Surgical History: Surgical History (Last Reviewed 06/28/19 @ 11:25 by KARLO Cortez) H/O breast biopsy Onset Date: 2007 stereotactic core needle biopsy of the left breast w/benign findings S/P DANIELLE-BSO Onset Date: 02/26/06 done by -Fibroids, MMR S/P colonoscopy Onset Date: 12/20/10 stereotactic core needle biopsy of the left breast w/benign findings Status post insertion of intrathecal baclofen pump Onset Date: 12/15/11 Family History: Family History (Last Reviewed 06/28/19 @ 11:25 by KARLO Cortez) Father , 79 COPD (chronic obstructive pulmonary disease) Hypertension Asthma Mother Hypertension Alzheimers disease Glaucoma Osteoporosis Grandmother Diabetes Social History: (Last Reviewed 06/28/19 @ 11:25 by KARLO Cortez) Social History: Marital status: current occupational status: disabled Highest education level completed: some college, no degree Service: No Tobacco: Smoking Status: Never smoker Alcohol: alcohol intake: never Substance Use: substance use type: does not use Dietary Habits: caffeine: Yes caffeine comment: occasional Type: coffee, carbonated beverages Physical Exam - Physical Exam General Appearance: Present: wd/wn, alert, mild distress Head Exam: Present: normal inspection Eye Exam: Normal inspection: bilateral Respiratory: Present: no respiratory distress, normal breath sounds, no accessory muscle use, lungs clear Cardiovascular/Chest: Present: no murmur, tachycardia Gastrointestinal/Abdominal: Present: normal bowel sounds, nondistended, soft, no organomegaly, tenderness - diffuse, suprapubic cath present with indwelling cath, no surrounding erythema Extremity Exam: Present: no edema Neurological Exam: Present: alert, normal mood/affect, no motor/sensory deficits, disoriented to time. Absent: disoriented to person, disoriented to place, disoriented to situation Skin Exam: Present: normal color, warm/dry Progress - Date and Time Seen: Date and Time: 06/28/19 11:49 Patient receiving IV hydration for presumed sepsis. Clinical pharmacist contacted for best course for antibiotics since patient has C. difficile posit yue as well as known positive UTI. Patient remains awake and alert but somewhat slow to respond and unable to recall time but remains oriented to place and person. We will administer IV Tylenol due to patient's generalized pain. Chest x-ray was ordered for sepsis work-up, patient refused stating she does not want a chest x-ray as she feels that it is not appropriate. 06/28/19 12:05 Spoke with Shannan Henriquez, clinical pharmacist, that patient would have finished 7 days of Tobra and Ampicillin yesterday. Due to completion of antibiotic therapy for previous documented UTI feel that patient has received adequate treatment. We will await repeat culture results of urine to reassess need for further treatment. We will initiate treatment for C. difficile with oral Vanco as well as IV Flagyl due to patient's history of comorbidities as well as hypotension. Patient improving with IV hydration BP 95/62 heart rate 99. We will continue to monitor as patient did necessitate IV dopamine during her last visit for persistent hypotension. 06/28/19 12:19 Discussed with patient that due to suspicion of infection with tachycardia, hypotension and noted C. difficile infection as well as SIRS criteria of tachycardia, hypotension and WBC 13.5 will cover patient with broad-spectrum antibiotic, cefepime since patient is already receiving Flagyl for the C. difficile. Results as well as plan of care was discussed with patient, verbalized understanding. Patient is agreeing to chest and abdomen imaging since we will need to rule out other source of infection. 06/28/19 14:41 No acute pathology on the chest and abdomen x-rays. Discussed results with Dr. Whyte and will admit for acute, dehydration sepsis and C. difficile. This was discussed with patient and she verbalized understanding, was also notified by nursing staff. Patient remains normotensive with IV hydration and using at 126 ml/hr, BP 105/68 and HR 97. - Results and Orders Patient's Lab Results:: I have reviewed the patient's lab results. - Vital Signs Patient's Vital Signs:: I have reviewed the patient's vital signs. Vital Signs: Vital Signs 06/28/19 11:04 Temperature 37.0 C Pulse Rate 109 H Respiratory Rate 19 Blood Pressure 80/40 L O2 Sat by Pulse Oximetry 95 - X-Ray X-Ray #1 X-Ray: abdomen Interpretation: Reviewed by me X-ray Comments: No specific bowel gas pattern. Air-filled loops of bowel. Reviewed with . X-Ray #2 X-Ray: chest Interpretation: Reviewed by me X-ray Comments: No acute cardiopulmonary abnormalities. Port noted to left chest. Reviewed with . - Progress/Reassessment Chief Complaint: General Assessment Progress:: Improved Progress Note-Subjective: 06/28/19 14:43 Patient appears more alert and responsive but continues to have difficulty with communication in repeating phrases when asking questions. Departure Clinical Impression: Dehydration, Clostridium difficile infection Sepsis Qualifiers: Sepsis type: sepsis due to unspecified organism Sepsis acute organ dysfunction status: unspecified Qualified Code(s): A41.9 - Sepsis, unspecified organism - Departure Disposition: Still a patient Condition: Stable Referrals: Laurence Goldsmith MD [Primary Care Provider] -
[2019-06-28 11:32] LABS: Hemoglobin 12.3 gm/dL (12.5-16.0); Mean Cell Volume 87.8 fl (78-100); Mean Corpuscular Hemoglobin 28.4 pg (27-31); Mean Corpuscular Hgb Conc 32.4 g/dl (32-36); Mean Platelet Volume 9.2 fl (8-12.5); Neutrophil # 12.1 K/mm3 (1.3-6.0); Neutrophil % 89.4 % (42-75.0); Platelet Count 297 K/mm3 (150-450); Red Blood Count 4.33 M/mm3 (4.2-5.4); Red Cell Distribution Width 13.6 % (11.5-14.0); White Blood Count 13.5 K/mm3 (4.0-10.5)
[2019-06-28] MEDS ORDERED: ACETAMINOPHEN 1,000 MG/100 ML BTL IV ONE (11:43)
[2019-06-28 11:47] LABS: Albumin * 2.9 gm/dl (3.4-5.0); Anion Gap 15.6 mmol/L (6.8-13.8); BUN/Creatinine Ratio 23.9 (9.0-21.6); Bilirubin, Total 0.3 mg/dL (0.0-1.1); Ca. Corrected For Albumin 9.1 mg/dL (8.4-10.2); Calcium * 8.5 mg/dL (7.9-10.9); Carbon Dioxide 21.1 mmol/L (24-32.6); Potassium 3.7 mmol/L (3.4-4.6); Total Protein 5.9 gm/dL (6.2-8.2)
[2019-06-28] MEDS ORDERED: CEFEPIME HCL 1 GM/100 ML BAG IV ONE (12:18)
[2019-06-28] MEDS ORDERED: VANCOMYCIN HCL 50 MG/ML BTL PO ONE (12:30)
[2019-06-28 12:42] LABS: Urine Bilirubin Negative (NEGATIVE); Urine Blood 250 /ul (NEGATIVE); Urine Ketone Negative (NEGATIVE); Urine Protein 15 mg/dL (NEGATIVE); Urine Urobilinogen Normal (NORMAL); Urine pH 6.5 pH (5.0-7.0)
[2019-06-28 12:50] LABS: Urine Appearance Slightly Cloudy (CLEAR); Urine Bacteria 1+; Urine Color Yellow; Urine Nitrite Positive (NEGATIVE); Urine WBC 0-5 /hpf (0-5)
[2019-06-28] MEDS: NORMAL SALINE 1,000 ML IV PRN ×2 (13:59→23:24)
[2019-06-28] MEDS ORDERED: ASPIRIN/ACETAMINOPHEN/CAFFEINE 1 TAB TAB PO PRN (16:20)
[2019-06-28] MEDS ORDERED: [UNRECOGNIZED DRUG - OTHER] TP PRN ×2 (16:20→16:29)
[2019-06-28] MEDS ORDERED: BACLOFEN 10 MG TABLET PO PRN ×2 (16:20→16:29)
[2019-06-28] MEDS ORDERED: BISACODYL 10 MG SUPP.RECT RC PRN ×2 (16:20→16:29)
[2019-06-28] MEDS ORDERED: POLYVINYL ALCOHOL 150 DROP BTL EACHEYE PRN (16:23)
[2019-06-28] MEDS ORDERED: LIDOCAINE/PRILOCAINE 30 APPL TUBE TP PRN (16:23)
[2019-06-28] MEDS ORDERED: IBUPROFEN 800 MG TABLET PO PRN (16:23)
[2019-06-28] MEDS ORDERED: oxyCODONE HCL 5 MG TABLET PO PRN (16:23)
--- NOTE | 2019-06-28 17:15 | HP ---
History of Present Illness: Meliza Rosado is a 58-year-old female and resident of [facility] who suffers from longstanding multiple sclerosis and complications thereof. I received a call from [facility] this morning stating that she had had a change in mental status, was weak and her blood pressure was low. They had talk to me yesterday about her having a positive C. difficile culture and had had quite a lot of diarrhea with that. Concern was that she had become dehydrated because of the diarrhea. On arrival in the emergency room she indeed was hypotensive with diminished mental status. She was given IV fluids and has really returned to baseline at this point. She continues to have diarrheal stools. She has had C. difficile infections in the past and says that only vancomycin works so Flagyl will not be administered as her history suggest this no longer effective. COVID screening was done in the ER but she does not have any risk for COVID-19. The [facility] has been spared any COVID-19 infections in their building. She takes a lot of medicine. I am holding some of it especially the supplements. She also has medicines for when she is constipated that I am holding. In the ER, she met sirs criteria because she had fever and hypotension and a leukocytosis of 13,500 with 89% neutrophilia. Since being rehydrated, her temperature has normalized to 37.6 and her blood pressure is normal. Her mental status has improved a lot. Her demeanor is 1 of irritability and anger but that seems to be how she usually is here at the hospital. At this point I think continued rehydration, getting started on oral vancomycin and getting the diarrhea stopped is the principal focus. She does have a chronic indwelling suprapubic catheter that is always infected. She became symptomatic with that and had been treated for 10 days with injectable tobramycin and then was placed on ampicillin. Is at that point that she developed a C. difficile infection again. She did receive 1 dose of antibiotic in the emergency room IV because of the sirs criteria but I will not continue that unless she becomes symptomatic from the UTI again. She is a patient of and I will return her to her doctor's care tomorrow morning. Medical History (Last Reviewed 06/28/19 @ 15:57 by Rochelle Youssef RN) History of UTI (Acute) Trochanteric bursitis (Acute) Shoulder pain (Resolved) Shoulder impingement (Chronic) Scoliosis (Chronic) Neurogenic bladder (Chronic) H/O dysmenorrhea (Chronic) Multiple sclerosis (Chronic) Onset Date: 1992 Incomplete bladder emptying (Chronic) Hip pain (Chronic) GERD (gastroesophageal reflux disease) (Chronic) Frequent infections (Chronic) Merritt-Danlos syndrome (Chronic) Depression (Chronic) DDD (degenerative disc disease) (Chronic) Colon polyps (Acute) Onset Date: 12/20/10 [place] Anxiety (Chronic) Surgical History: Surgical History (Last Reviewed 06/28/19 @ 15:57 by Rochelle Youssef RN) H/O breast biopsy Onset Date: 2007 stereotactic core needle biopsy of the left breast w/benign findings S/P DANIELLE-BSO Onset Date: 02/26/06 done by -Fibroids, MMR S/P colonoscopy Onset Date: 12/20/10 stereotactic core needle biopsy of the left breast w/benign findings Status post insertion of intrathecal baclofen pump Onset Date: 12/15/11 Family History: Family History (Last Reviewed 06/28/19 @ 15:57 by Rochelle Youssef RN) Father , 79 COPD (chronic obstructive pulmonary disease) Hypertension Asthma Mother Hypertension Alzheimers disease Glaucoma Osteoporosis Grandmother Diabetes Social History: (Last Reviewed 06/28/19 @ 15:58 by Rochelle Youssef RN) Social History: Marital status: current occupational status: disabled Highest education level completed: some college, no degree Service: No Tobacco: Smoking Status: Never smoker Alcohol: alcohol intake: never Substance Use: substance use type: does not use Dietary Habits: caffeine: Yes caffeine comment: occasional Type: coffee, carbonated beverages Review Of Systems (GEN) - Review of Systems Generalized/Overall Review: Present: Weakness, Malaise, Fatigue EENTM: Present: No Symptoms Reported Respiratory: Present: No Symptoms Reported Cardiac: Present: Other - Hypotension Abdominal: Present: Diarrhea, Other - Positive C. difficile screen yesterday Genitourinary: Present: Other - Chronic indwelling suprapubic catheter with chronic UTIs Musculoskeletal: Present: Joint Pain, Back Pain, Muscle Pain, Neck Pain Neurological: Present: Headache, Anxiety, Depressed, Emotional Problems, Weakness, Other - Progressive multiple sclerosis Skin: Present: No Symptoms Reported Endocrine: Present: No Symptoms Reported Immunizations: IMMUNIZATION HX Immunizations Up to Date Yes History of Influenza Vaccine Yes Hx Pneumococcal Vaccination Yes Allergies/Adverse Reactions: Allergies Allergy/AdvReac Type Severity Reaction Status Date / Time modafinil [From Provigil] Allergy Intermediate Hives Verified 06/28/19 15:58 adhesive Allergy Mild Other Verified 06/28/19 15:58 Sulfa (Sulfonamide Allergy Mild Hives Verified 06/28/19 15:58 Antibiotics) [Sulfa(Sulfonamide Antibiotics)] lactose AdvReac stomach Verified 06/28/19 15:58 issues Home Medications: HOME MEDICATIONS Mirabegron [Myrbetriq] 25 mg PO DAILY 07/11/14 [Last Taken 05/01/15 08:00] Gabapentin [Neurontin] 1,200 mg PO BID 07/13/14 [Last Taken 05/01/15 08:00] Topiramate [Topamax] 100 mg PO QAM #0 04/28/15 [Last Taken 05/01/15 08:00] Topiramate [Topamax] 50 mg PO 1200,2100 07/25/17 [Last Taken Unknown] natalizumab 300 mg/15 mL intravenous solution 300 mg IV Q28D ml 09/09/17 [Last Taken Unknown] Baclofen 20 mg PO TID PRN tab 04/06/18 [Last Taken Unknown] Escitalopram Oxalate [Lexapro] 40 mg PO DAILY tab 04/06/18 [Last Taken Unknown] Tens Units and Tens Electrodes [Ra Pain Relief Device] 0 unit .ROUTE .MEDSUPPLY 05/07/18 [Last Taken Unknown] Calcium Carb/D3/Mag Aa Chelate [Coral Calcium Capsule] 2 tab PO BID 05/11/18 [Last Taken Unknown] Cholecalciferol (Vitamin D3) [Vitamin D3] 1,000 unit PO DAILY 05/11/18 [Last Taken Unknown] Flaxseed Oil [Flax Seed Oil] 2 tab PO QPM 05/11/18 [Last Taken Unknown] Flaxseed Oil [Flax Seed Oil] 3 tab PO QAM 05/11/18 [Last Taken Unknown] Multivitamin [Poly-Vitamin] 1 ea PO DAILY 05/11/18 [Last Taken Unknown] Act.charcoal/Iron/Sodium/Water [Thermacare Heatwrap] 1 ea TOPICAL Q12H PRN 05/14/18 [Last Taken Unknown] Aspirin/Acetaminophen/Caffeine [Excedrin Migraine Caplet] 2 ea PO Q6H PRN 05/14/18 [Last Taken Unknown] Chlorhexidine/Glycerin/He-Cell [Lubricating Jelly] 1 appl TOPICAL DAILY 05/14/18 [Last Taken Unknown] Econazole Nitrate [Spectazole 1%] 1 appl TOPICAL DAILY PRN 05/14/18 [Last Taken Unknown] Lidocaine/Prilocaine [Emla] 1 appl TOPICAL PRN PRN 05/14/18 [Last Taken Unknown] Miconazole Nitrate [Desenex] 1 appl TOPICAL DAILY 05/14/18 [Last Taken Unknown] Polyvinyl Alcohol [Artificial Tears] 1 drp EACHEYE Q1H PRN 05/14/18 [Last Taken Unknown] Vit A Acet/Vit C/Zinc/Propolis [Zinc Lozenges] 1 ea PO PRN PRN 05/14/18 [Last Taken Unknown] Zinc Oxide/Petrolatum,White [Rambo Moist Barrier Cream] 1 appl TOPICAL DAILY 05/14/18 [Last Taken Unknown] oxycodone 5 mg tablet 5 mg PO Q6H PRN #120 tab 06/01/19 [Last Taken Unknown] ibuprofen 800 mg tablet 800 mg PO BID PRN #60 tab 06/02/19 [Last Taken Unknown] Bisacodyl 10 mg RC PRN PRN 06/13/19 [Last Taken Unknown] Carbamazepine [Carbatrol] 200 mg PO BID 06/13/19 [Last Taken Unknown] Docusate Sodium [Dok] 200 mg PO BID 06/13/19 [Last Taken Unknown] Loperamide HCl [Imodium A-D] 4 mg PO DAILY PRN 06/13/19 [Last Taken Unknown] Potassium Chloride 40 meq PO DAILY 06/13/19 [Last Taken Unknown] Saccharomyces boulardii 250 mg capsule 250 mg PO BID #56 cap 06/23/19 [Last Taken Unknown] calcium carbonate 390 mg calcium (1,000 mg) tablet 780 mg PO DAILY #60 tab 06/24/19 [Last Taken Unknown] Exam - Exam Vital Signs: Vital Signs - Last Taken Temp 37.6 C 06/28/19 15:49 Pulse 111 H 06/28/19 15:49 Resp 20 06/28/19 15:49 BP 135/72 06/28/19 15:49 Pulse Ox 98 06/28/19 15:49 Constitutional: Present: Alert, Oriented x3, Cooperative, Well developed, Well nourished, Middle aged, Thin and frail, Looks Older than stated age ENT Exam: Present: normal ENT inspection, hearing grossly normal, pharynx normal Eye Exam: bilateral eye: normal inspection, PERRL, EOMI Neck: Present: non-tender, full range of motion, supple, normal inspection, trachea midline, limited range of motion Back Exam: Present: normal inspection, no CVA tenderness, no vertebral tenderness Breasts: Present: Exam deferred Respiratory: Present: chest non-tender, lungs clear, normal breath sounds, no respiratory distress, no accessory muscle use Cardiovascular/Chest: Present: normal peripheral pulses, regular rate, rhythm, no chest tenderness, no edema, no gallop, no JVD, no murmur, no rub Peripheral Pulses: carotid (R): 2+, carotid (L): 2+, radial (R): 2+, radial (L): 2+ Abdomen: Present: soft, tender, distended. Absent: Normal bowel sounds - Bowel sounds are hyperactive /Rectal: Present: Exam deferred Extremity: Present: normal capillary refill, other - Limited range of motion. 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, alert, normal mood/affect - At least normal for her baseline, oriented x 3, motor weakness Appearance: Present: appropriate appearance, appropriate insight, neat, no memory impairment Eye contact: Present: cooperative, good eye contact, normal speech Thoughts: Present: normal thought pattern, no apparent hallucination Diagnostic Studies: Abnormal Lab Results 06/28/19 06/28/19 06/28/19 Range/Units 11:20 11:20 11:20 WBC 13.5 H (4.0-10.5) K/mm3 Hgb 12.3 L (12.5-16.0) gm/dL Immature Gran % (Auto) 0.50 H (0.001-0.429) % Immature Gran # (Auto) 0.07 H (0.000-0.0310) K/mm3 Neutrophils % 89.4 H (42-75.0) % Lymphocytes % 5.1 L (20-51) % Neutrophils # 12.1 H (1.3-6.0) K/mm3 Lymphocytes # 0.69 L (1.5-3.5) k/mm3 Carbon Dioxide 21.1 L (24-32.6) mmol/L Anion Gap 15.6 H (6.8-13.8) mmol/L BUN/Creatinine Ratio 23.9 H (9.0-21.6) ALT 14 L (19-67) U/L Total Protein 5.9 L (6.2-8.2) gm/dL Albumin 2.9 L (3.4-5.0) gm/dl Procalcitonin 1.19 H (0.05-0.50) ng/mL Urine Protein (NEGATIVE) mg/dL Urine Blood (NEGATIVE) /ul Urine Nitrate (NEGATIVE) Ur Leukocyte Esterase (NEGATIVE) /ul Urine RBC (0-5) /hpf Urine Bacteria (NONE) 06/28/19 Range/Units 12:31 WBC (4.0-10.5) K/mm3 Hgb (12.5-16.0) gm/dL Immature Gran % (Auto) (0.001-0.429) % Immature Gran # (Auto) (0.000-0.0310) K/mm3 Neutrophils % (42-75.0) % Lymphocytes % (20-51) % Neutrophils # (1.3-6.0) K/mm3 Lymphocytes # (1.5-3.5) k/mm3 Carbon Dioxide (24-32.6) mmol/L Anion Gap (6.8-13.8) mmol/L BUN/Creatinine Ratio (9.0-21.6) ALT (19-67) U/L Total Protein (6.2-8.2) gm/dL Albumin (3.4-5.0) gm/dl Procalcitonin (0.05-0.50) ng/mL Urine Protein 15 H (NEGATIVE) mg/dL Urine Blood 250 H (NEGATIVE) /ul Urine Nitrate Positive H (NEGATIVE) Ur Leukocyte Esterase 75 H (NEGATIVE) /ul Urine RBC 5-10 H (0-5) /hpf Urine Bacteria 1+ H (NONE) Laboratory Results WBC 13.5 K/mm3 (4.0-10.5) H 06/28/19 11:20 RBC 4.33 M/mm3 (4.2-5.4) 06/28/19 11:20 Hgb 12.3 gm/dL (12.5-16.0) L 06/28/19 11:20 Hct 38.0 % (37.0-47.0) 06/28/19 11:20 MCV 87.8 fl (78-100) 06/28/19 11:20 MCH 28.4 pg (27-31) 06/28/19 11:20 MCHC 32.4 g/dl (32-36) 06/28/19 11:20 RDW 13.6 % (11.5-14.0) 06/28/19 11:20 Plt Count 297 K/mm3 (150-450) 06/28/19 11:20 MPV 9.2 fl (8-12.5) 06/28/19 11:20 Immature Gran % (Auto) 0.50 % (0.001-0.429) H 06/28/19 11:20 Immature Gran # (Auto) 0.07 K/mm3 (0.000-0.0310) H 06/28/19 11:20 Neutrophils % 89.4 % (42-75.0) H 06/28/19 11:20 Lymphocytes % 5.1 % (20-51) L 06/28/19 11:20 Monocytes % 4.4 % (0.0-9) 06/28/19 11:20 Eosinophils % 0.5 % (0.0-3.0) 06/28/19 11:20 Basophils % 0.1 % (0.0-1.0) 06/28/19 11:20 Nucleated RBC % 0.0 k/mm3 (0-1) 06/28/19 11:20 Neutrophils # 12.1 K/mm3 (1.3-6.0) H 06/28/19 11:20 Lymphocytes # 0.69 k/mm3 (1.5-3.5) L 06/28/19 11:20 Monocytes # 0.6 k/mm3 (0.0-1.0) 06/28/19 11:20 Eosinophils # 0.1 k/mm3 (0.0-0.7) 06/28/19 11:20 Absolute Basophils 0.0 k/mm3 (0.0-0.1) 06/28/19 11:20 Sodium 132 mmol/L (132-142) 06/28/19 11:20 Plasma Sodium 132 mmol/L (130-142) 06/28/19 11:20 Potassium 3.7 mmol/L (3.4-4.6) 06/28/19 11:20 Chloride 99 mmol/L (97-106) 06/28/19 11:20 Carbon Dioxide 21.1 mmol/L (24-32.6) L 06/28/19 11:20 Anion Gap 15.6 mmol/L (6.8-13.8) H 06/28/19 11:20 BUN 16 mg/dL (3-23) 06/28/19 11:20 Creatinine 0.67 mg/dL (0.4-1.4) 06/28/19 11:20 Est GFR (Non-Af Amer) 96 mL/min (60-130) 06/28/19 11:20 BUN/Creatinine Ratio 23.9 (9.0-21.6) H 06/28/19 11:20 Random Glucose 103 mg/dL (70-110) 06/28/19 11:20 Lactic Acid, Venous 1.9 mmol/L (0.4-2.0) 06/28/19 11:20 Calcium 8.5 mg/dL (7.9-10.9) 06/28/19 11:20 Calcium Adj for Albumin 9.1 mg/dL (8.4-10.2) 06/28/19 11:20 Total Bilirubin 0.3 mg/dL (0.0-1.1) 06/28/19 11:20 AST 12 U/L (0-48) 06/28/19 11:20 ALT 14 U/L (19-67) L 06/28/19 11:20 Alkaline Phosphatase 101 U/L (50-170) 06/28/19 11:20 Total Protein 5.9 gm/dL (6.2-8.2) L 06/28/19 11:20 Albumin 2.9 gm/dl (3.4-5.0) L 06/28/19 11:20 Procalcitonin 1.19 ng/mL (0.05-0.50) H 06/28/19 11:20 Urine Color Yellow 06/28/19 12:31 Urine Appearance Slightly cloudy (CLEAR) 06/28/19 12:31 Urine pH 6.5 pH (5.0-7.0) 06/28/19 12:31 Ur Specific [place] 1.020 SP.GR. (1.005-1.010) 06/28/19 12:31 Urine Protein 15 mg/dL (NEGATIVE) H 06/28/19 12:31 Urine Glucose (UA) Negative mg/dL (NEGATIVE) 06/28/19 12:31 Urine Ketones Negative mg/dL (NEGATIVE) 06/28/19 12:31 Urine Blood 250 /ul (NEGATIVE) H 06/28/19 12:31 Urine Nitrate Positive (NEGATIVE) H 06/28/19 12:31 Urine Bilirubin Negative mg/dl (NEGATIVE) 06/28/19 12:31 Prot Sulfosalicylic Acd No Print 06/28/19 12:31 Urine Urobilinogen Normal EU/dl (NORMAL) 06/28/19 12:31 Ur Leukocyte Esterase 75 /ul (NEGATIVE) H 06/28/19 12:31 Urine RBC 5-10 /hpf (0-5) H 06/28/19 12:31 Urine WBC 0-5 /hpf (0-5) 06/28/19 12:31 Ur Epithelial Cells 0-5 /hpf (0-5) 06/28/19 12:31 Calcium Oxalate Crystal Trace /hpf (NONE) 06/28/19 12:31 Urine Bacteria 1+ (NONE) H 06/28/19 12:31 Urine Culture Comments Culture to follow 06/28/19 12:31
[2019-06-28] MEDS: VANCOMYCIN HCL 50 MG/ML BTL PO SCH (17:42)
[2019-06-28] MEDS ORDERED: CARBAMAZEPINE 200 MG PO SCH (21:00)
[2019-06-28] MEDS ORDERED: MAG AA CHELATE PO SCH (21:00)
[2019-06-28] MEDS ORDERED: [UNRECOGNIZED DRUG - OTHER] PO SCH (21:00)
[2019-06-28] MEDS ORDERED: D3 PO SCH (21:00)
[2019-06-28] MEDS ORDERED: CALCIUM CARB PO SCH (21:00)
[2019-06-28] MEDS: carBAMazepine 200 MG TABLET PO SCH (21:36)
[2019-06-28] MEDS: TOPIRAMATE 50 MG TABLET PO SCH (21:36)
[2019-06-28] MEDS: GABAPENTIN 600 MG TABLET PO SCH (21:36)
[2019-06-28] MEDS: SACCHAROMYCES BOULARDII 250 MG CAPSULE PO SCH (21:36)
[2019-06-28] MEDS: CALCIUM CARBONATE/VITAMIN D3 1 TAB TABLET PO SCH (21:36)
[2019-06-29] MEDS: VANCOMYCIN HCL 50 MG/ML BTL PO SCH ×4 (00:45→18:38)
[2019-06-29] MEDS ORDERED: HEPARIN SOD.,PORCINE 100 UNITS/ML IV PRN (06:31)
[2019-06-29 06:53] LABS: Hematocrit 31.8 % (37.0-47.0); Hemoglobin 10.3 gm/dL (12.5-16.0); Mean Cell Volume 88.6 fl (78-100); Mean Corpuscular Hemoglobin 28.7 pg (27-31); Mean Corpuscular Hgb Conc 32.4 g/dl (32-36); Mean Platelet Volume 9.3 fl (8-12.5); Neutrophil # 9.7 K/mm3 (1.3-6.0); Neutrophil % 86.4 % (42-75.0); Platelet Count 240 K/mm3 (150-450); Red Blood Count 3.59 M/mm3 (4.2-5.4); Red Cell Distribution Width 13.8 % (11.5-14.0); White Blood Count 11.2 K/mm3 (4.0-10.5)
[2019-06-29 07:05] LABS: Albumin * 2.4 gm/dl (3.4-5.0); Anion Gap 13.2 mmol/L (6.8-13.8); BUN/Creatinine Ratio 19.1 (9.0-21.6); Bilirubin, Total 0.2 mg/dL (0.0-1.1); Ca. Corrected For Albumin 8.6 mg/dL (8.4-10.2); Calcium * 7.6 mg/dL (7.9-10.9); Carbon Dioxide 21.6 mmol/L (24-32.6); Potassium 2.8 mmol/L (3.4-4.6); Total Protein 4.9 gm/dL (6.2-8.2)
[2019-06-29] MEDS: NORMAL SALINE 1,000 ML IV PRN ×2 (08:23→16:28)
[2019-06-29] MEDS: ESCITALOPRAM OXALATE 10 MG TAB PO SCH (08:24)
[2019-06-29] MEDS: GABAPENTIN 600 MG TABLET PO SCH ×2 (08:26→21:04)
[2019-06-29] MEDS: MIRABEGRON 25 MG TAB.PO.ER PO SCH (08:26)
[2019-06-29] MEDS: SACCHAROMYCES BOULARDII 250 MG CAPSULE PO SCH ×2 (08:26→21:04)
[2019-06-29] MEDS ORDERED: POTASSIUM BICARBONATE/CIT AC 25 MEQ TABLET.EFF PO ONE (08:27)
[2019-06-29] MEDS: carBAMazepine 200 MG TABLET PO SCH ×2 (08:27→20:47)
[2019-06-29] MEDS: TOPIRAMATE 50 MG TABLET PO SCH ×3 (08:27→21:04)
[2019-06-29] MEDS: MICONAZOLE NITRATE 85 APPL BTL TP SCH (08:28)
[2019-06-29] MEDS: CALCIUM CARBONATE/VITAMIN D3 1 TAB TABLET PO SCH ×2 (08:28→20:46)
[2019-06-29] MEDS ORDERED: CALCIUM CARBONATE PO SCH ×2 (09:00)
[2019-06-29] MEDS ORDERED: POTASSIUM CHLORIDE 10 MEQ TABLET.SA PO SCH (09:00)
[2019-06-29] MEDS ORDERED: oxyCODONE HCL/ACETAMINOPHEN 1 TAB TABLET PO PRN (09:20)
[2019-06-29] MEDS ORDERED: POTASSIUM CHLORIDE IN WATER 100 ML IV SCH (09:45)
[2019-06-29] MEDS: POTASSIUM CHLORIDE IN WATER 100 ML IV SCH ×6 (11:27→17:10)
[2019-06-29] MEDS: metroNIDAZOLE/SODIUM CHLORIDE 500 MG/100 ML BAG IV SCH ×2 (13:13→20:48)
--- NOTE | 2019-06-29 16:49 | PN ---
Subjective - Date and Time Seen Date: 06/29/19 Time: 08:30 Subjective Narrative: She feels well but complains of left shoulder pain. She would like to try Tylenol with the oxycodone. She does not want to take the potassium bicarbonate or a potassium chloride tablet and would like potassium in her IV. She did have some diarrhea overnight. She denies abdominal pain. Objective - Review of Systems Generalized/Overall Review: Denies: Fever Respiratory: Denies: Shortness of Breath Cardiac: Denies: Chest Pain Abdominal: Reports: Diarrhea. Denies: Abdominal Pain Musculoskeletal Complaints: Reports: Joint Pain - Left shoulder Misc: All systems neg except as marked - Vitals Vitals: Last Vital Signs Temp 36.7 C 06/29/19 13:49 Pulse 104 H 06/29/19 13:49 Resp 20 06/29/19 13:49 BP 89/49 L 06/29/19 13:49 Pulse Ox 99 06/29/19 13:49 - Abnormal Lab Findings Abnormal Lab Findings: Abnormal Lab Results 06/29/19 06/29/19 Range/Units 06:32 06:32 WBC 11.2 H (4.0-10.5) K/mm3 RBC 3.59 L (4.2-5.4) M/mm3 Hgb 10.3 L (12.5-16.0) gm/dL Hct 31.8 L (37.0-47.0) % Immature Gran % (Auto) 0.60 H (0.001-0.429) % Immature Gran # (Auto) 0.07 H (0.000-0.0310) K/mm3 Neutrophils % 86.4 H (42-75.0) % Lymphocytes % 7.4 L (20-51) % Neutrophils # 9.7 H (1.3-6.0) K/mm3 Lymphocytes # 0.83 L (1.5-3.5) k/mm3 Potassium 2.8 L D (3.4-4.6) mmol/L Chloride 108 H (97-106) mmol/L Carbon Dioxide 21.6 L (24-32.6) mmol/L Est GFR (Non-Af Amer) 145 H D (60-130) mL/min Calcium 7.6 L (7.9-10.9) mg/dL ALT 15 L (19-67) U/L Total Protein 4.9 L (6.2-8.2) gm/dL Albumin 2.4 L (3.4-5.0) gm/dl - Exam Constitutional: Present: Alert, Oriented x3, Cooperative, Well developed, Well nourished, Middle aged ENT Exam: Present: hearing grossly normal Neck: Present: non-tender, trachea midline. Absent: lymphadenopathy (R), lymphadenopathy (L) Respiratory: Present: lungs clear, no accessory muscle use, No wheezing. Absent: crackles, rhonchi Cardiovascular/Chest: Present: normal peripheral pulses, no murmur, tachycardia Abdomen: Present: Normal bowel sounds, soft, nontender Extremity: Present: no pedal edema Skin Exam: Present: normal color, warm/dry Neurologic: Present: alert, normal mood/affect, disoriented x 3 Appearance: Present: appropriate appearance Eye contact: Present: cooperative, good eye contact Thoughts: Present: normal thought pattern, normal mood /affect Assessment/Plan Plan Narrative: 58-year-old female with a past medical history of anxiety, depression, GERD, multiple sclerosis and is wheelchair-bound, recurrent UTIs, Erler's Danlos syndrome, degenerative disc disease, neurogenic bladder with a suprapubic catheter, shoulder impingement and scoliosis presents from [facility] with altered mental status and a positive test for C. difficile. She was started on vancomycin and given a IV hydration with improvement of her mentation. Today her potassium was low at 2.8. Plan #1 replete potassium #2 continue IV fluid hydration at 150 cc/h #4 continue with oral vancomycin 125 mg every 6 hours #5 resume home medications as needed #6 CBC and CMP in the morning - Problems/Diagnosis (1) Clostridium difficile infection Problem: Acute (2) Altered mental status, unspecified Problem: Acute Qualifiers: Altered mental status type: disorientation Qualified Code(s): R41.0 - Disorientation, unspecified (3) Hypokalemia Problem: Acute (4) Tachycardia Problem: Acute (5) Shoulder pain Problem: Chronic Qualifiers: Chronicity: chronic Laterality: right Qualified Code(s): M25.511 - Pain in right shoulder; G89.29 - Other chronic pain (6) Neurogenic bladder Problem: Chronic (7) Multiple sclerosis Problem: Chronic
[2019-06-30] MEDS: NORMAL SALINE 1,000 ML IV PRN ×2 (00:16→08:16)
[2019-06-30] MEDS: VANCOMYCIN HCL 50 MG/ML BTL PO SCH ×2 (00:17→05:54)
[2019-06-30] MEDS: metroNIDAZOLE/SODIUM CHLORIDE 500 MG/100 ML BAG IV SCH (05:53)
[2019-06-30 06:07] LABS: Hematocrit 31.9 % (37.0-47.0); Hemoglobin 10.3 gm/dL (12.5-16.0); Mean Cell Volume 88.6 fl (78-100); Mean Corpuscular Hemoglobin 28.6 pg (27-31); Mean Corpuscular Hgb Conc 32.3 g/dl (32-36); Mean Platelet Volume 9.3 fl (8-12.5); Neutrophil # 4.5 K/mm3 (1.3-6.0); Neutrophil % 69.2 % (42-75.0); Platelet Count 251 K/mm3 (150-450); White Blood Count 6.5 K/mm3 (4.0-10.5)
[2019-06-30 06:21] LABS: Albumin * 2.4 gm/dl (3.4-5.0); Anion Gap 11.1 mmol/L (6.8-13.8); BUN/Creatinine Ratio 11.1 (9.0-21.6); Bilirubin, Total 0.2 mg/dL (0.0-1.1); Ca. Corrected For Albumin 9.3 mg/dL (8.4-10.2); Calcium * 8.3 mg/dL (7.9-10.9); Carbon Dioxide 24.1 mmol/L (24-32.6); Potassium 3.2 mmol/L (3.4-4.6); Total Protein 4.9 gm/dL (6.2-8.2)
[2019-06-30] MEDS: MICONAZOLE NITRATE 85 APPL BTL TP SCH (09:40)
[2019-06-30] MEDS: carBAMazepine 200 MG TABLET PO SCH (09:41)
[2019-06-30] MEDS: GABAPENTIN 600 MG TABLET PO SCH (09:46)
[2019-06-30] MEDS: ESCITALOPRAM OXALATE 10 MG TAB PO SCH (09:46)
[2019-06-30] MEDS: MIRABEGRON 25 MG TAB.PO.ER PO SCH (09:46)
[2019-06-30] MEDS: SACCHAROMYCES BOULARDII 250 MG CAPSULE PO SCH (09:46)
[2019-06-30] MEDS: CALCIUM CARBONATE/VITAMIN D3 1 TAB TABLET PO SCH (09:46)
[2019-06-30] MEDS: TOPIRAMATE 50 MG TABLET PO SCH (09:50)
--- NOTE | 2019-06-30 10:25 | DS ---
(1) Clostridium difficile infection Problem: Acute (2) Altered mental status, unspecified Problem: Acute Qualifiers: Altered mental status type: disorientation Qualified Code(s): R41.0 - Disorientation, unspecified (3) Hypokalemia Problem: Acute (4) Tachycardia Problem: Acute (5) Shoulder pain Problem: Chronic Qualifiers: Chronicity: chronic Laterality: right Qualified Code(s): M25.511 - Pain in right shoulder; G89.29 - Other chronic pain (6) Neurogenic bladder Problem: Chronic (7) Multiple sclerosis Problem: Chronic Hospital Course: 58-year-old female with a past medical history of anxiety, depression, GERD, multiple sclerosis and is wheelchair-bound, recurrent UTIs, Erler's Danlos syndrome, degenerative disc disease, neurogenic bladder with a suprapubic catheter, shoulder impingement and scoliosis presents from [facility] with altered mental status and a positive test for C. difficile. She was started on vancomycin and given a IV hydration with improvement of her mentation. Her potassium was low at 2.8 and improved to 3.2 with repletion. The diarrhea has improved and she is stable to be discharged back to [facility] today. She will continue vancomycin taper. Vancomycin pulsed taper regimen -125 mg orally 4 times daily for 10 days, then -125 mg orally twice daily for 7 days, then -125 mg orally once daily for 7 days, then -125 mg orally every 3 days for 6 weeks then stop Procedures Performed: none Results and Findings: Pending Mircobiology Results 06/28/19 12:30 Urine,Catheterized Urine Culture - Preliminary No Growth 06/28/19 11:20 Blood Blood Culture - Preliminary NO GROWTH 24 HOURS 06/28/19 11:20 Blood Blood Culture - Preliminary NO GROWTH 24 HOURS Lab Pending Results 06/28/19 11:20: Procalcitonin 1.19 H 06/28/19 11:20: WBC 13.5 H, RBC 4.33, Hgb 12.3 L, Hct 38.0, MCV 87.8, MCH 28.4, MCHC 32.4, RDW 13.6, Plt Count 297, MPV 9.2, Immature Gran % (Auto) 0.50 H, Immature Gran # (Auto) 0.07 H, Neutrophils % 89.4 H, Lymphocytes % 5.1 L, Monocytes % 4.4, Eosinophils % 0.5, Basophils % 0.1, Nucleated RBC % 0.0, Neutrophils # 12.1 H, Lymphocytes # 0.69 L, Monocytes # 0.6, Eosinophils # 0.1, Absolute Basophils 0.0 06/28/19 11:20: Sodium 132, Plasma Sodium 132, Potassium 3.7, Chloride 99, Carbon Dioxide 21.1 L, Anion Gap 15.6 H, BUN 16, Creatinine 0.67, Est GFR (Non- Af Amer) 96, BUN/Creatinine Ratio 23.9 H, Random Glucose 103, Calcium 8.5, Calcium Adj for Albumin 9.1, Total Bilirubin 0.3, AST 12, ALT 14 L, Alkaline Phosphatase 101, Total Protein 5.9 L, Albumin 2.9 L 06/28/19 11:20: Lactic Acid, Venous 1.9 06/28/19 12:31: Urine Color Yellow, Urine Appearance Slightly cloudy, Urine pH 6.5, Ur Specific [place] 1.020, Urine Protein 15 H, Urine Glucose (UA) Negative, Urine Ketones Negative, Urine Blood 250 H, Urine Nitrate Positive H, Urine Bilirubin Negative, Prot Sulfosalicylic Acd No Print, Urine Urobilinogen Normal, Ur Leukocyte Esterase 75 H, Urine RBC 5-10 H, Urine WBC 0-5, Ur Epithelial Cells 0-5, Calcium Oxalate Crystal Trace, Urine Bacteria 1+ H, Urine Culture Comments Culture to follow 06/29/19 06:32: WBC 11.2 H, RBC 3.59 L, Hgb 10.3 L, Hct 31.8 L, MCV 88.6, MCH 28.7, MCHC 32.4, RDW 13.8, Plt Count 240, MPV 9.3, Immature Gran % (Auto) 0.60 H, Immature Gran # (Auto) 0.07 H, Neutrophils % 86.4 H, Lymphocytes % 7.4 L, Monocytes % 3.9, Eosinophils % 1.4, Basophils % 0.3, Nucleated RBC % 0.0, Neutrophils # 9.7 H, Lymphocytes # 0.83 L, Monocytes # 0.4, Eosinophils # 0.2, Absolute Basophils 0.0 06/29/19 06:32: Sodium 140, Plasma Sodium 140, Potassium 2.8 L D, Chloride 108 H, Carbon Dioxide 21.6 L, Anion Gap 13.2, BUN 9, Creatinine 0.47, Est GFR (Non- Af Amer) 145 H D, BUN/Creatinine Ratio 19.1, Random Glucose 97, Calcium 7.6 L, Calcium Adj for Albumin 8.6, Total Bilirubin 0.2, AST 18, ALT 15 L, Alkaline Phosphatase 90, Total Protein 4.9 L, Albumin 2.4 L 06/30/19 06:00: WBC 6.5 D, RBC 3.60 L, Hgb 10.3 L, Hct 31.9 L, MCV 88.6, MCH 28.6, MCHC 32.3, RDW 14.0, Plt Count 251, MPV 9.3, Immature Gran % (Auto) 0.30, Immature Gran # (Auto) 0.02, Neutrophils % 69.2, Lymphocytes % 15.4 L, Monocytes % 5.2, Eosinophils % 9.4 H, Basophils % 0.5, Nucleated RBC % 0.0, Neutrophils # 4.5, Lymphocytes # 1.00 L, Monocytes # 0.3, Eosinophils # 0.6, Absolute Basophils 0.0 06/30/19 06:00: Sodium 142, Plasma Sodium 142, Potassium 3.2 L, Chloride 110 H, Carbon Dioxide 24.1, Anion Gap 11.1, BUN 5, Creatinine 0.45, Est GFR (Non-Af Amer) 152 H, BUN/Creatinine Ratio 11.1, Random Glucose 95, Calcium 8.3, Calcium Adj for Albumin 9.3, Total Bilirubin 0.2, AST 14, ALT 15 L, Alkaline Phosphatase 88, Total Protein 4.9 L, Albumin 2.4 L Discharge Location: [facility] Disposition: Intermediate Care Facility ICF Condition: Stable Level of Care: ICF Discharge Activity: Non-Weight bearing Discharge Diet: General/regular food Additional Patient Instructions (free text): Vancomycin pulsed taper regimen -125 mg orally 4 times daily for 10 days, then -125 mg orally twice daily for 7 days, then -125 mg orally once daily for 7 days, then -125 mg orally every 3 days for 6 weeks then stop Prescriptions (Any new or edited meds): L. Acidophilus/Pectin, [place] [Acidophilus Capsule] 1 ea PO DAILY #90 cap Transmission Status: Sent to [facility] Vancomycin HCl [Vancocin HCl] 125 mg PO Q6H #120 capsule Complete Home Medications List: Complete Home Medication List: Gabapentin [Neurontin] 1,200 mg PO BID 07/13/14 Baclofen 20 mg PO TID PRN tab 04/06/18 Escitalopram Oxalate [Lexapro] 40 mg PO DAILY tab 04/06/18 Calcium Carb/D3/Mag Aa Chelate [Coral Calcium Capsule] 2 tab PO BID 05/11/18 Multivitamin [Poly-Vitamin] 1 ea PO DAILY 05/11/18 Aspirin/Acetaminophen/Caffeine [Excedrin Migraine Caplet] 2 ea PO Q6H PRN 05/14/18 Polyvinyl Alcohol [Artificial Tears] 1 drp EACHEYE Q1H PRN 05/14/18 Vit A Acet/Vit C/Zinc/Propolis [Zinc Lozenges] 1 ea PO PRN PRN 05/14/18 ibuprofen 800 mg tablet 800 mg PO BID PRN #60 tab 06/02/19 Bisacodyl 10 mg RC PRN PRN 06/13/19 Carbamazepine [Carbatrol] 200 mg PO BID 06/13/19 Docusate Sodium [Dok] 200 mg PO BID 06/13/19 Loperamide HCl [Imodium A-D] 4 mg PO DAILY PRN 06/13/19 calcium carbonate 390 mg calcium (1,000 mg) tablet 780 mg PO DAILY #60 tab 06/24/19 Acetaminophen 650 mg PO Q4H PRN MDD 3gm 06/28/19 Baclofen 20 mg PO HS 06/28/19 HYDROcodone/ACETAMINOPHEN [Hydrocodone-Acetamin 5-325 mg] 1 ea PO Q4H PRN 06/28/19 Loperamide HCl [Imodium A-D] 2 mg PO Q6H PRN 06/28/19 Saccharomyces Boulardii [Florastor] 250 mg PO BID 06/28/19 metroNIDAZOLE [Flagyl] 500 mg PO BID 06/28/19 L. Acidophilus/Pectin, [place] [Acidophilus Capsule] 1 ea PO DAILY #90 cap 06/30/19 Vancomycin HCl [Vancocin HCl] 125 mg PO Q6H #120 capsule 06/30/19 Forms: Patient Portal Registration
[2019-06-30 11:52] VITALS: BP 91/43
== END 2019-06-30 12:05 ==
LOC: ER 11:02 → MS 14:44 → INTOOBSV 14:44 → MS 14:50
PROVIDERS: ADMIT Family Medicine; ATTEND Internal Medicine
CPT/HCPCS: 36415; 71010; 71045; 74019; 74020; 80053; 81001; 83605; 84145; 85025; 87040; 87081; 87086; 96361; 96365; 96366; 96367; 99285; G0378; J0131

== ENCOUNTER 2019-09-19 09:12 | Inpatient (IN) ==
[2019-09-19] MEDS: NORMAL SALINE 1,000 ML IV SCH ×2 (09:33→10:55)
[2019-09-19 10:28] LABS: Hematocrit 38.9 % (37.0-47.0); Hemoglobin 12.4 gm/dL (12.5-16.0); Mean Cell Volume 91.3 fl (78-100); Mean Corpuscular Hemoglobin 29.1 pg (27-31); Mean Corpuscular Hgb Conc 31.9 g/dl (32-36); Mean Platelet Volume 9.2 fl (8-12.5); Neutrophil # 6.7 K/mm3 (1.3-6.0); Neutrophil % 85.4 % (42-75.0); Platelet Count 294 K/mm3 (150-450); Red Blood Count 4.26 M/mm3 (4.2-5.4); Red Cell Distribution Width 14.6 % (11.5-14.0); White Blood Count 7.9 K/mm3 (4.0-10.5)
[2019-09-19 10:42] LABS: Albumin * 2.5 gm/dl (3.4-5.0); Anion Gap 15.4 mmol/L (6.8-13.8); BUN/Creatinine Ratio 28.8 (9.0-21.6); Bilirubin, Total 0.3 mg/dL (0.0-1.1); Ca. Corrected For Albumin 8.1 mg/dL (8.4-10.2); Calcium * 7.2 mg/dL (7.9-10.9); Carbon Dioxide 20.6 mmol/L (24-32.6); Total Protein 5.1 gm/dL (6.2-8.2)
[2019-09-19 10:57] LABS: Urine Appearance Slightly Cloudy (CLEAR); Urine Color Yellow
[2019-09-19 10:58] LABS: Urine Bilirubin Negative (NEGATIVE); Urine Blood 250 /ul (NEGATIVE); Urine Ketone Negative (NEGATIVE); Urine Protein 100 mg/dL (NEGATIVE); Urine Specific Gravity 1.025 SP.GR. (1.005-1.010)
[2019-09-19 10:59] LABS: Urine Nitrite Positive (NEGATIVE); Urine Urobilinogen Normal (NORMAL)
[2019-09-19 11:00] LABS: Urine WBC >50 /hpf (0-5)
[2019-09-19 11:01] LABS: Urine Bacteria 4+
[2019-09-19] MEDS ORDERED: cefTRIAXone SODIUM 1,000 MG/100 ML BAG IV ONE (11:15)
--- NOTE | 2019-09-19 12:43 | ERNOTE ---
Neuro HPI ER Record Date of Service: 09/19/19 Time Seen by Provider: 09/19/19 09:16 Source: family, EMS, RN notes reviewed, residential records Exam Limitations: clinical condition Immunizations: IMMUNIZATION HX Immunizations Up to Date Yes History of Influenza Vaccine Yes Hx Pneumococcal Vaccination Yes Allergies/Adverse Reactions: Allergies Allergy/AdvReac Type Severity Reaction Status Date / Time modafinil [From Provigil] Allergy Intermediate Hives Verified 08/27/19 18:53 adhesive Allergy Mild Other Verified 08/27/19 18:53 Sulfa (Sulfonamide Allergy Mild Hives Verified 08/27/19 18:53 Antibiotics) [Sulfa(Sulfonamide Antibiotics)] lactose AdvReac stomach Verified 08/27/19 18:53 issues Home Medications: HOME MEDICATIONS Gabapentin [Neurontin] 1,200 mg PO BID 07/13/14 [Last Taken 05/01/15 08:00] Aspirin/Acetaminophen/Caffeine [Excedrin Migraine Caplet] 2 ea PO Q6H PRN 05/14/18 [Last Taken Unknown] Polyvinyl Alcohol [Artificial Tears] 1 drp EACHEYE Q1H PRN 05/14/18 [Last Taken Unknown] ibuprofen 800 mg tablet 800 mg PO BID PRN #60 tab 06/02/19 [Last Taken Unknown] Carbamazepine [Carbatrol] 200 mg PO BID 06/13/19 [Last Taken Unknown] Acetaminophen 650 mg PO Q4H PRN MDD 3gm 06/28/19 [Last Taken Unknown] Baclofen 20 mg PO HS 06/28/19 [Last Taken Unknown] Calcium Carbonate [Tums] 1,000 mg PO DAILY 30 Days #60 tab.chew 06/30/19 [Last Taken Unknown] oxycodone 5 mg tablet 5 mg PO Q6H PRN #120 tab 06/30/19 [Last Taken Unknown] potassium chloride 10 mEq capsule,extended release 40 meq PO DAILY cap 07/06/19 [Last Taken Unknown] topiramate 100 mg tablet 100 mg PO DAILY 07/06/19 [Last Taken Unknown] topiramate 50 mg tablet 50 mg PO 1100,1630 07/06/19 [Last Taken Unknown] docusate sodium 100 mg capsule 200 mg PO BID PRN 07/30/19 [Last Taken Unknown] escitalopram oxalate 20 mg tablet 40 mg PO DAILY #1 tab 07/30/19 [Last Taken Unknown] loperamide 2 mg tablet See Rx Instructions .ROUTE .COMPLEX PRN 07/30/19 [Last Taken Unknown] multivitamin 1 tab PO DAILY 07/30/19 [Last Taken Unknown] vancomycin 125 mg capsule 125 mg PO .COMPLEX cap 08/05/19 [Last Taken Unknown] Baclofen 20 mg PO TID PRN 08/27/19 [Last Taken Unknown] Bisacodyl [Laxative Suppository] 10 mg RC DAILY PRN 08/27/19 [Last Taken Unknown] Flaxseed Oil [Flax Seed Oil] 1,000 mg PO DAILY PRN 09/19/19 [Last Taken Unknown] HYDROcodone/ACETAMINOPHEN [Hydrocodon-Acetaminophen 5-325] 1 ea PO Q4H PRN 09/19/19 [Last Taken Unknown] carBAMazepine [Tegretol Chewable Tablets] 100 mg PO BID 09/19/19 [Last Taken Unknown] - History of Present Illness Narrative: Meliza was sent in from the residential with mental status changes, vomiting, diarrhea. The mental status changes have been since yesterday. She has had c difficile with ongoing diarrhea. She has had vomiting since yesterday. No fever. Her blood pressure per EMS was 88/48 with a heart rate of 112. EMS gave a 500 ml fluid bolus. She is lethargic, can give one word answers. Review of Systems - Narrative Narrative: Unobtainable due to clinic condition. Medical History (Last Reviewed 09/19/19 @ 13:29 by Amy Perry MD) Biceps tendinitis of left shoulder (Chronic) History of UTI (Acute) Trochanteric bursitis (Acute) Shoulder pain (Chronic) Shoulder impingement (Chronic) Scoliosis (Chronic) Neurogenic bladder (Chronic) H/O dysmenorrhea (Chronic) Multiple sclerosis (Chronic) Onset Date: 1992 Incomplete bladder emptying (Chronic) Hip pain (Chronic) GERD (gastroesophageal reflux disease) (Chronic) Frequent infections (Chronic) Merritt-Danlos syndrome (Chronic) Depression (Chronic) DDD (degenerative disc disease) (Chronic) Colon polyps (Acute) Onset Date: 12/20/10 Sascha Anxiety (Chronic) Surgical History: Surgical History (Last Reviewed 09/19/19 @ 13:29 by Amy Perry MD) H/O breast biopsy Onset Date: 2007 stereotactic core needle biopsy of the left breast w/benign findings S/P DANIELLE-BSO Onset Date: 02/26/06 done by -Fibroids, MMR S/P colonoscopy Onset Date: 12/20/10 stereotactic core needle biopsy of the left breast w/benign findings Status post insertion of intrathecal baclofen pump Onset Date: 12/15/11 Family History: Family History (Last Reviewed 09/19/19 @ 13:29 by Amy Perry MD) Father , 79 Asthma Hypertension COPD (chronic obstructive pulmonary disease) Mother Osteoporosis Glaucoma Alzheimers disease Hypertension Grandmother Diabetes Social History: (Last Reviewed 09/19/19 @ 13:29 by Amy Perry MD) Social History: Marital status: current occupational status: disabled current occupation: Disabled Highest education level completed: some college, no degree Service: No Tobacco: Smoking Status: Never smoker Alcohol: alcohol intake: never Substance Use: substance use type: does not use Dietary Habits: caffeine: Yes caffeine comment: occasional Type: coffee, carbonated beverages Physical Exam - Physical Exam General Appearance: Present: lethargic, thin Head Exam: Present: normal inspection, no evidence of injury Eye Exam: Normal inspection: bilateral, PERRL: bilateral - pupils large, but reactive., EOMI: bilateral Ears, Nose, Throat: Present: normal except -, dry mucous membranes Neck: Present: normal inspection, nontender Respiratory: Present: no respiratory distress, normal breath sounds, no a ccessory muscle use, lungs clear Cardiovascular/Chest: Present: regular rate, rhythm, no murmur, normal peripheral pulses, tachycardia Peripheral Pulses: N=norm/S=strong/W=weak/B=bound/A=absent: Dorsalis-pedis (R): Normal, Dorsalis-pedis (L): Normal Gastrointestinal/Abdominal: Present: normal bowel sounds, nontender, nondis tended, soft, no organomegaly Back Exam: Present: normal inspection, no CVA tenderness, no vertebral tenderness Extremity Exam: Present: no edema, decreased range of motion - contractures Neurological Exam: Present: other - she has decreased level of consciousness, can follow some commands. Joint contractures. Skin Exam: Present: normal color, warm/dry Progress - Results and Orders Patient's Lab Results:: I have reviewed the patient's lab results. - Vital Signs Patient's Vital Signs:: I have reviewed the patient's vital signs. Vital Signs: Vital Signs 09/19/19 09:20 09/19/19 09:51 09/19/19 09:56 Temperature 36.7 C 36.6 C Pulse Rate 116 H 116 H 121 H Respiratory Rate 20 22 H 18 Blood Pressure 84/41 L 104/56 109/52 O2 Sat by Pulse Oximetry 97 99 09/19/19 10:56 Temperature Pulse Rate 122 H Respiratory Rate 18 Blood Pressure 98/47 O2 Sat by Pulse Oximetry 99 - EKG EKG #1 EKG: NSR EKG read: Interp. by me EKG Comments: Sinus tach, artifact due to difficulty positioning. No acute ST-T ab normalities. - CT/Ultrasound CT/Ultrasound Narrative: Head CT without contrast: No acute changes. - Progress/Reassessment Chief Complaint: Altered Mental Status Progress Note-Subjective: 09/19/19 13:53 [address] had spoken to [address] Arenas, technical applications specialist for FP and IM initially about admission, there was some concern about patient's MS and any effect on treatment plans. Patient was also still running hypotensive when I initially spoke to Dr. Arenas. I called [facility] to discuss transfer at 1:55 pm. [facility] is on bed alert, no floor beds available at the moment, so patient would have to board in the ER. [facility] asks if we could admit locally, and patient can be put on waiting list for transfer, if transfer is still needed after continued fluid rescuscitation. I will discuss with technical applications specialist hospitalist. Departure Clinical Impression: Hypokalemia, Tachycardia, Generalized weakness, Sepsis secondary to UTI, Multiple sclerosis, primary chronic progressive UTI (urinary tract infection) due to urinary indwelling catheter Qualifiers: Indwelling urinary catheter type: indwelling urethral catheter Encounter type: initial encounter Qualified Code(s): T83.511A - Infection and inflammatory reaction due to indwelling urethral catheter, initial encounter - Departure Disposition: Short Term Hospital Inpatient Condition: Stable
[2019-09-19] MEDS ORDERED: POTASSIUM CHLORIDE IN WATER 100 ML IV ONE (13:00)
[2019-09-19] MEDS: POTASSIUM CHLORIDE 20 MEQ in 0.5 NORMAL SALINE 1,000 ML IV SCH ×2 (14:30→22:28)
--- NOTE | 2019-09-19 18:59 | HP ---
Chief Complaint - Chief Complaint Date of Service: 09/19/19 Time of Service: 18:43 Chief Complaint: decreased mentation History of Present Illness: Patient with past medical history of MS, neurogenic bladder with suprapubic catheter, recent C. 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 She was brought to the ER this morning for decreased mentation. In the ED, her blood pressure was low, she was tachycardic, briefly tachypneic, lactate of 3.5. Urinalysis was positive for blood, 4+ bacteria, leukocyte esterase, nitrates. She was having liquid diarrhea in the ED. She was afebrile, white blood cell count not elevated at 7.6. With her MS, an attempt was made to transfer to the [facility] for neurology and infectious disease, but they did not have beds available and felt like we could manage her illness at our facility. Her blood pressure and mentation improved with fluids. Medical History (Last Reviewed 09/19/19 @ 16:38 by Soham Alicea RN) Biceps tendinitis of left shoulder (Chronic) History of UTI (Acute) Trochanteric bursitis (Acute) Shoulder pain (Chronic) Shoulder impingement (Chronic) Scoliosis (Chronic) Neurogenic bladder (Chronic) H/O dysmenorrhea (Chronic) Multiple sclerosis (Chronic) Onset Date: 1992 Incomplete bladder emptying (Chronic) Hip pain (Chronic) GERD (gastroesophageal reflux disease) (Chronic) Frequent infections (Chronic) Merritt-Danlos syndrome (Chronic) Depression (Chronic) DDD (degenerative disc disease) (Chronic) Colon polyps (Acute) Onset Date: 12/20/10 [place] Anxiety (Chronic) Surgical History: Surgical History (Last Reviewed 09/19/19 @ 16:38 by Soham Alicea RN) H/O breast biopsy Onset Date: 2007 stereotactic core needle biopsy of the left breast w/benign findings S/P DANIELLE-BSO Onset Date: 02/26/06 done by -Fibroids, MMR S/P colonoscopy Onset Date: 12/20/10 stereotactic core needle biopsy of the left breast w/benign findings Status post insertion of intrathecal baclofen pump Onset Date: 12/15/11 Family History: Family History (Last Reviewed 09/19/19 @ 16:38 by Soham Alicea RN) Father , 79 COPD (chronic obstructive pulmonary disease) Hypertension Asthma Mother Hypertension Alzheimers disease Glaucoma Osteoporosis Grandmother Diabetes Social History: (Last Reviewed 09/19/19 @ 16:38 by Soham Alicea RN) Social History: Marital status: current occupational status: disabled current occupation: Disabled Highest education level completed: some college, no degree Service: No Tobacco: Smoking Status: Never smoker Alcohol: alcohol intake: never Substance Use: substance use type: does not use Dietary Habits: caffeine: Yes caffeine comment: occasional Type: coffee, carbonated beverages Review Of Systems (GEN) - Review of Systems Generalized/Overall Review: Present: Weakness. Absent: Fever Respiratory: Present: Shortness of Breath Cardiac: Present: Chest Pain Abdominal: Present: Diarrhea. Absent: Vomiting Genitourinary: Present: Other - Suprapubic catheter Musculoskeletal: Present: No Symptoms Reported Neurological: Present: No Symptoms Reported Skin: Present: No Symptoms Reported Immunizations: IMMUNIZATION HX Immunizations Up to Date Yes History of Influenza Vaccine Yes Hx Pneumococcal Vaccination Yes Allergies/Adverse Reactions: Allergies Allergy/AdvReac Type Severity Reaction Status Date / Time modafinil [From Provigil] Allergy Intermediate Hives Verified 08/27/19 18:53 adhesive Allergy Mild Other Verified 08/27/19 18:53 Sulfa (Sulfonamide Allergy Mild Hives Verified 08/27/19 18:53 Antibiotics) [Sulfa(Sulfonamide Antibiotics)] lactose AdvReac stomach Verified 08/27/19 18:53 issues Home Medications: HOME MEDICATIONS Gabapentin [Neurontin] 1,200 mg PO BID 07/13/14 [Last Taken 05/01/15 08:00] Aspirin/Acetaminophen/Caffeine [Excedrin Migraine Caplet] 2 ea PO Q6H PRN 05/14/18 [Last Taken Unknown] Polyvinyl Alcohol [Artificial Tears] 1 drp EACHEYE Q1H PRN 05/14/18 [Last Taken Unknown] ibuprofen 800 mg tablet 800 mg PO BID PRN #60 tab 06/02/19 [Last Taken Unknown] Carbamazepine [Carbatrol] 200 mg PO BID 06/13/19 [Last Taken Unknown] Acetaminophen 650 mg PO Q4H PRN MDD 3gm 06/28/19 [Last Taken Unknown] Baclofen 20 mg PO HS 06/28/19 [Last Taken Unknown] Calcium Carbonate [Tums] 1,000 mg PO DAILY 30 Days #60 tab.chew 06/30/19 [Last Taken Unknown] oxycodone 5 mg tablet 5 mg PO Q6H PRN #120 tab 06/30/19 [Last Taken Unknown] potassium chloride 10 mEq capsule,extended release 40 meq PO DAILY cap 07/06/19 [Last Taken Unknown] topiramate 100 mg tablet 100 mg PO DAILY 07/06/19 [Last Taken Unknown] topiramate 50 mg tablet 50 mg PO 1100,1630 07/06/19 [Last Taken Unknown] docusate sodium 100 mg capsule 200 mg PO BID PRN 07/30/19 [Last Taken Unknown] escitalopram oxalate 20 mg tablet 40 mg PO DAILY #1 tab 07/30/19 [Last Taken Unknown] loperamide 2 mg tablet See Rx Instructions .ROUTE .COMPLEX PRN 07/30/19 [Last Taken Unknown] multivitamin 1 tab PO DAILY 07/30/19 [Last Taken Unknown] vancomycin 125 mg capsule 125 mg PO .COMPLEX cap 08/05/19 [Last Taken Unknown] Baclofen 20 mg PO TID PRN 08/27/19 [Last Taken Unknown] Bisacodyl [Laxative Suppository] 10 mg RC DAILY PRN 08/27/19 [Last Taken Unknown] Flaxseed Oil [Flax Seed Oil] 1,000 mg PO DAILY PRN 09/19/19 [Last Taken Unknown] HYDROcodone/ACETAMINOPHEN [Hydrocodon-Acetaminophen 5-325] 1 ea PO Q4H PRN 09/19/19 [Last Taken Unknown] carBAMazepine [Tegretol Chewable Tablets] 100 mg PO BID 09/19/19 [Last Taken Unknown] Exam - Exam Vital Signs: Vital Signs - Last Taken Temp 37.2 C 09/19/19 15:21 Pulse 122 H 09/19/19 15:21 Resp 18 09/19/19 15:21 BP 97/49 09/19/19 15:21 Pulse Ox 92 L 09/19/19 15:21 Constitutional: Present: Alert, No distress Respiratory: Present: lungs clear, decreased breath sounds Cardiovascular/Chest: Present: tachycardia, other - Port in left upper chest Abdomen: Present: soft, other - Suprapubic catheter Extremity: Absent: lower extremity edema Eye contact: Present: decreased rate of speech, other - Does not answer all questions Diagnostic Studies: Abnormal Lab Results 09/19/19 09/19/19 09/19/19 Range/Units 10:17 10:17 10:17 Hgb 12.4 L (12.5-16.0) gm/dL MCHC 31.9 L (32-36) g/dl RDW 14.6 H (11.5-14.0) % Neutrophils % 85.4 H (42-75.0) % Lymphocytes % 6.0 L (20-51) % Neutrophils # 6.7 H (1.3-6.0) K/mm3 Lymphocytes # 0.47 L (1.5-3.5) k/mm3 Sodium 143 H (132-142) mmol/L Plasma Sodium 144 H (130-142) mmol/L Potassium 3.0 L D (3.4-4.6) mmol/L Chloride 110 H (97-106) mmol/L Carbon Dioxide 20.6 L (24-32.6) mmol/L Anion Gap 15.4 H (6.8-13.8) mmol/L BUN/Creatinine Ratio 28.8 H (9.0-21.6) Random Glucose 133 H (70-110) mg/dL Lactic Acid, Venous 3.5 H* (0.4-2.0) mmol/L Calcium 7.2 L (7.9-10.9) mg/dL Calcium Adj for Albumin 8.1 L (8.4-10.2) mg/dL Total Protein 5.1 L (6.2-8.2) gm/dL Albumin 2.5 L (3.4-5.0) gm/dl Urine Protein (NEGATIVE) mg/dL Urine Blood (NEGATIVE) /ul Urine Nitrate (NEGATIVE) Prot Sulfosalicylic Acd (0) mg/dL Ur Leukocyte Esterase (NEGATIVE) /ul Urine RBC (0-5) /hpf Urine WBC (0-5) /hpf Urine Bacteria (NONE) 09/19/19 09/19/19 Range/Units 10:37 12:35 Hgb (12.5-16.0) gm/dL MCHC (32-36) g/dl RDW (11.5-14.0) % Neutrophils % (42-75.0) % Lymphocytes % (20-51) % Neutrophils # (1.3-6.0) K/mm3 Lymphocytes # (1.5-3.5) k/mm3 Sodium (132-142) mmol/L Plasma Sodium (130-142) mmol/L Potassium (3.4-4.6) mmol/L Chloride (97-106) mmol/L Carbon Dioxide (24-32.6) mmol/L Anion Gap (6.8-13.8) mmol/L BUN/Creatinine Ratio (9.0-21.6) Random Glucose (70-110) mg/dL Lactic Acid, Venous 2.1 H (0.4-2.0) mmol/L Calcium (7.9-10.9) mg/dL Calcium Adj for Albumin (8.4-10.2) mg/dL Total Protein (6.2-8.2) gm/dL Albumin (3.4-5.0) gm/dl Urine Protein 100 H (NEGATIVE) mg/dL Urine Blood 250 H (NEGATIVE) /ul Urine Nitrate Positive H (NEGATIVE) Prot Sulfosalicylic Acd 4+ H (0) mg/dL Ur Leukocyte Esterase 500 H (NEGATIVE) /ul Urine RBC 10-25 H (0-5) /hpf Urine WBC >50 H (0-5) /hpf Urine Bacteria 4+ H (NONE) Laboratory Results WBC 7.9 K/mm3 (4.0-10.5) 09/19/19 10:17 RBC 4.26 M/mm3 (4.2-5.4) 09/19/19 10:17 Hgb 12.4 gm/dL (12.5-16.0) L 09/19/19 10:17 Hct 38.9 % (37.0-47.0) 09/19/19 10:17 MCV 91.3 fl (78-100) 09/19/19 10:17 MCH 29.1 pg (27-31) 09/19/19 10:17 MCHC 31.9 g/dl (32-36) L 09/19/19 10:17 RDW 14.6 % (11.5-14.0) H 09/19/19 10:17 Plt Count 294 K/mm3 (150-450) 09/19/19 10:17 MPV 9.2 fl (8-12.5) 09/19/19 10:17 Immature Gran % (Auto) 0.10 % (0.001-0.429) 09/19/19 10:17 Immature Gran # (Auto) 0.01 K/mm3 (0.000-0.0310) 09/19/19 10:17 Neutrophils % 85.4 % (42-75.0) H 09/19/19 10:17 Lymphocytes % 6.0 % (20-51) L 09/19/19 10:17 Monocytes % 8.2 % (0.0-9) 09/19/19 10:17 Eosinophils % 0.0 % (0.0-3.0) 09/19/19 10:17 Basophils % 0.3 % (0.0-1.0) 09/19/19 10:17 Nucleated RBC % 0.0 k/mm3 (0-1) 09/19/19 10:17 Neutrophils # 6.7 K/mm3 (1.3-6.0) H 09/19/19 10:17 Lymphocytes # 0.47 k/mm3 (1.5-3.5) L 09/19/19 10:17 Monocytes # 0.7 k/mm3 (0.0-1.0) 09/19/19 10:17 Eosinophils # 0.0 k/mm3 (0.0-0.7) 09/19/19 10:17 Absolute Basophils 0.0 k/mm3 (0.0-0.1) 09/19/19 10:17 Sodium 143 mmol/L (132-142) H 09/19/19 10:17 Plasma Sodium 144 mmol/L (130-142) H 09/19/19 10:17 Potassium 3.0 mmol/L (3.4-4.6) L D 09/19/19 10:17 Chloride 110 mmol/L (97-106) H 09/19/19 10:17 Carbon Dioxide 20.6 mmol/L (24-32.6) L 09/19/19 10:17 Anion Gap 15.4 mmol/L (6.8-13.8) H 09/19/19 10:17 BUN 21 mg/dL (3-23) D 09/19/19 10:17 Creatinine 0.73 mg/dL (0.4-1.4) 09/19/19 10:17 Est GFR (Non-Af Amer) 87 mL/min (60-130) D 09/19/19 10:17 BUN/Creatinine Ratio 28.8 (9.0-21.6) H 09/19/19 10:17 Random Glucose 133 mg/dL (70-110) H 09/19/19 10:17 Lactic Acid, Venous 2.0 mmol/L (0.4-2.0) 09/19/19 16:54 Calcium 7.2 mg/dL (7.9-10.9) L 09/19/19 10:17 Calcium Adj for Albumin 8.1 mg/dL (8.4-10.2) L 09/19/19 10:17 Total Bilirubin 0.3 mg/dL (0.0-1.1) 09/19/19 10:17 AST 17 U/L (0-48) 09/19/19 10:17 ALT 29 U/L (19-67) 09/19/19 10:17 Alkaline Phosphatase 92 U/L (50-170) 09/19/19 10:17 Troponin I Less than 0.017 ng/mL (0.00-0.10) 09/19/19 17:50 Total Protein 5.1 gm/dL (6.2-8.2) L 09/19/19 10:17 Albumin 2.5 gm/dl (3.4-5.0) L 09/19/19 10:17 Procalcitonin 0.11 ng/mL (0.05-0.50) 09/19/19 10:17 Urine Color Yellow 09/19/19 10:37 Urine Appearance Slightly cloudy (CLEAR) 09/19/19 10:37 Urine pH 5.0 pH (5.0-7.0) 09/19/19 10:37 Ur Specific [place] 1.025 SP.GR. (1.005-1.010) 09/19/19 10:37 Urine Protein 100 mg/dL (NEGATIVE) H 09/19/19 10:37 Urine Glucose (UA) Negative mg/dL (NEGATIVE) 09/19/19 10:37 Urine Ketones Negative mg/dL (NEGATIVE) 09/19/19 10:37 Urine Blood 250 /ul (NEGATIVE) H 09/19/19 10:37 Urine Nitrate Positive (NEGATIVE) H 09/19/19 10:37 Urine Bilirubin Negative mg/dl (NEGATIVE) 09/19/19 10:37 Prot Sulfosalicylic Acd 4+ mg/dL (0) H 07/25/20 10:37 Urine Urobilinogen Normal EU/dl (NORMAL) 09/19/19 10:37 Ur Leukocyte Esterase 500 /ul (NEGATIVE) H 09/19/19 10:37 Urine RBC 10-25 /hpf (0-5) H 09/19/19 10:37 Urine WBC >50 /hpf (0-5) H 09/19/19 10:37 Ur Epithelial Cells 0-5 /hpf (0-5) 09/19/19 10:37 Urine Bacteria 4+ (NONE) H 09/19/19 10:37 Urine Culture Comments Culture to follow 09/19/19 10:37 Assessment/Plan - Assessment/Plan (1) Sepsis Assessment: She had a lactate initially, which has resolved with IV fluids. BP was low, which also improved with fluids. She has been afebrile, and WBC not elevated at 7.9. Procalcitonin was very low at 0.11. She technically met sepsis criteria with low blood pressure, source of infection (UTI and recent c diff), tachycardia, tachypnea, altered mental status. However, her low blood pressure may be chronic. She has an indwelling suprapubic catheter, so her urine is always contaminated. Tachycardia, tachypnea, and AMS have resolved. She is not currently septic. Her mentation was decreased initially, but she is now able to appropriately answer questions. She was given a dose of Rocephin in the ED, and will continue. Blood and urine cultures pending. Will also continue fluids. On my exam, she reports feeling better than she did earlier today. Of note, her BP at her neurology office visit in June 2019 was 78/62, so her baseline BP may be low. Problem: Suspected Qualifiers: Sepsis type: sepsis due to unspecified organism Sepsis acute organ dysfunction status: unspecified Qualified Code(s): A41.9 - Sepsis, unspecified organism (2) Altered mental status, unspecified Assessment: Likely due to dehydration. Infectious source is possible, so will treat for UTI with rocephin and c diff with po vancomycin. Problem: Resolved Qualifiers: Altered mental status type: disorientation Qualified Code(s): R41.0 - Disorientation, unspecified (3) Multiple sclerosis Assessment: She feels like she may be having a flare. Since her baseline function is so limited, it is difficult to assess if she is actively having a flare. Since she is improved from this morning, I feel like a flare possibility is less likely. She reports getting an intrathecal injection every 6 months, most recently in June. Neurology note from June 2019 states her intrathecal medicine is baclofen. She feels like it may not be working. When asked how much she is able to move at baseline, she reports "not much at all." Problem: Chronic (4) Clostridium difficile infection Assessment: Recent c diff infections. She is currently on a prolonged vancomycin regimen. Repeat c diff lab pending. She continues to have liquid stools. Problem: Acute (5) Urinary tract infection Assessment: She has a suprapubic catheter, so her urine is usually contaminated. She has a neurogenic bladder, so may not have expected symptoms. With a procalcitonin of only 0.11, however, systemic infection unlikely. Problem: Suspected Qualifiers: Urinary tract infection type: acute cystitis Hematuria presence: without hematuria Qualified Code(s): N30.00 - Acute cystitis without hematuria (6) Hypokalemia Assessment: Potassium of 3.0 on admission. She was repleted with 20 mEq IV potassium. Recheck in a.m. Problem: Acute (7) Tachycardia Assessment: likely due to dehydration. continue fluids. sinus rhythm on EKG. Problem: Acute (8) Dehydration Assessment: Sodium, chloride, anion gap are high on CMP. Continue IV fluids. Repeat CMP in the morning. Problem: Acute (9) Neurogenic bladder Problem: Chronic (10) Merritt-Danlos syndrome Problem: Chronic
[2019-09-20] MEDS ORDERED: NORMAL SALINE 250 ML IV ONE (06:05)
[2019-09-20] MEDS: POTASSIUM CHLORIDE 20 MEQ in 0.5 NORMAL SALINE 1,000 ML IV SCH (06:13)
[2019-09-20] MEDS: VANCOMYCIN HCL 50 MG/ML BTL PO SCH ×4 (06:36→23:37)
[2019-09-20 06:51] LABS: Hematocrit 34.4 % (37.0-47.0); Hemoglobin 11.2 gm/dL (12.5-16.0); Mean Cell Volume 88.4 fl (78-100); Mean Corpuscular Hemoglobin 28.8 pg (27-31); Mean Corpuscular Hgb Conc 32.6 g/dl (32-36); Mean Platelet Volume 9.2 fl (8-12.5); Platelet Count 216 K/mm3 (150-450); Red Blood Count 3.89 M/mm3 (4.2-5.4); Red Cell Distribution Width 14.3 % (11.5-14.0); White Blood Count 10.1 K/mm3 (4.0-10.5)
[2019-09-20 06:53] LABS: Total Cells Counted 100
[2019-09-20 07:10] LABS: Albumin * 2.2 gm/dl (3.4-5.0); Anion Gap 13.7 mmol/L (6.8-13.8); BUN/Creatinine Ratio 33.3 (9.0-21.6); Bilirubin, Total 0.4 mg/dL (0.0-1.1); Ca. Corrected For Albumin 8.9 mg/dL (8.4-10.2); Calcium * 7.8 mg/dL (7.9-10.9); Carbon Dioxide 19.7 mmol/L (24-32.6); Total Protein 4.9 gm/dL (6.2-8.2)
[2019-09-20 07:13] LABS: Potassium 2.4 mmol/L (3.4-4.6)
[2019-09-20 08:39] LABS: Band 38 % (0-2.0); Lymphocyte 6 % (20-51); Monocyte 6 % (0-9); Neutrophil 50 % (42-75); Neutrophil # 5.1 K/mm3 (1.3-6.0); Platelet Estimate Normal (NORMAL); RBC Morphology Normal (NORMAL)
[2019-09-20] MEDS: POTASSIUM CHLORIDE IN WATER 100 ML IV SCH ×8 (09:09→23:36)
[2019-09-20] MEDS: NORMAL SALINE 1,000 ML IV PRN ×2 (09:09→19:06)
[2019-09-20] MEDS ORDERED: BISACODYL 10 MG SUPP.RECT RC PRN (10:46)
[2019-09-20] MEDS ORDERED: BACLOFEN 10 MG TABLET PO PRN (10:46)
[2019-09-20] MEDS ORDERED: ASPIRIN/ACETAMINOPHEN/CAFFEINE 1 TAB TAB PO PRN (10:46)
[2019-09-20] MEDS ORDERED: FLAXSEED OIL 1000 MG PO PRN (10:46)
[2019-09-20] MEDS ORDERED: ACETAMINOPHEN 325 MG TABLET PO PRN (10:46)
[2019-09-20] MEDS ORDERED: POLYVINYL ALCOHOL 150 DROP BTL EACHEYE PRN (10:46)
[2019-09-20] MEDS ORDERED: DOCUSATE SODIUM 100 MG CAPSULE PO PRN (10:46)
[2019-09-20] MEDS: carBAMazepine 200 MG TABLET PO SCH ×3 (11:32→20:27)
[2019-09-20] MEDS: GABAPENTIN 600 MG TABLET PO SCH ×2 (11:33→20:23)
[2019-09-20] MEDS: carBAMazepine 100 MG TAB.CHEW PO SCH ×4 (11:33→20:27)
[2019-09-20] MEDS: ESCITALOPRAM OXALATE 10 MG TAB PO SCH (11:36)
[2019-09-20] MEDS: POTASSIUM CHLORIDE 20 MEQ TABLET.SA PO SCH (11:36)
[2019-09-20] MEDS: TOPIRAMATE 50 MG TABLET PO SCH ×2 (11:36→17:26)
--- NOTE | 2019-09-20 12:31 | PN ---
Subjective - Date and Time Seen Date: 09/20/19 Time: 12:28 Subjective Narrative: She reports feeling much better and is back to her baseline. She would like to go back to [facility] today. She remains tachycardic, but she states her normal heart rate is around 110. Objective - Review of Systems Generalized/Overall Review: Reports: Weakness - baseline EENTM: Reports: Other - facial pain from trigeminal neuralgia Respiratory: Denies: Cough, Shortness of Breath Cardiac: Denies: Chest Pain Abdominal: Reports: Diarrhea. Denies: Vomiting Genitourinary Symptoms: Reports: No Symptoms Reported, Other - suprapubic catheter Musculoskeletal Complaints: Reports: Other - contractures, inability to extend fingers Neurological: Reports: Pre-existing Deficit Skin: Reports: No Symptoms Reported - Vitals Vitals: Last Vital Signs Temp 36.0 C 09/20/19 10:29 Pulse 111 H 09/20/19 10:29 Resp 16 09/20/19 10:29 BP 106/58 09/20/19 10:29 Pulse Ox 96 09/20/19 10:29 - Abnormal Lab Findings Abnormal Lab Findings: Abnormal Lab Results 09/19/19 09/19/19 09/20/19 Range/Units 12:35 21:04 06:45 RBC 3.89 L (4.2-5.4) M/mm3 Hgb 11.2 L (12.5-16.0) gm/dL Hct 34.4 L (37.0-47.0) % RDW 14.3 H (11.5-14.0) % Band Neuts % (Manual) 38 H (0-2.0) % Lymphocytes % (Manual) 6 L (20-51) % Lymphocytes # (Manual) 0.6 L (1.5-3.5) k/mm3 Potassium (3.4-4.6) mmol/L Chloride (97-106) mmol/L Carbon Dioxide (24-32.6) mmol/L Est GFR (Non-Af Amer) (60-130) mL/min BUN/Creatinine Ratio (9.0-21.6) Random Glucose (70-110) mg/dL Lactic Acid, Venous 2.1 H (0.4-2.0) mmol/L Calcium (7.9-10.9) mg/dL Total Protein (6.2-8.2) gm/dL Albumin (3.4-5.0) gm/dl Stl C.difficile Tox A&B Positive H (Negative) 09/20/19 Range/Units 06:45 RBC (4.2-5.4) M/mm3 Hgb (12.5-16.0) gm/dL Hct (37.0-47.0) % RDW (11.5-14.0) % Band Neuts % (Manual) (0-2.0) % Lymphocytes % (Manual) (20-51) % Lymphocytes # (Manual) (1.5-3.5) k/mm3 Potassium 2.4 L* (3.4-4.6) mmol/L Chloride 107 H (97-106) mmol/L Carbon Dioxide 19.7 L (24-32.6) mmol/L Est GFR (Non-Af Amer) 164 H D (60-130) mL/min BUN/Creatinine Ratio 33.3 H (9.0-21.6) Random Glucose 124 H (70-110) mg/dL Lactic Acid, Venous (0.4-2.0) mmol/L Calcium 7.8 L (7.9-10.9) mg/dL Total Protein 4.9 L (6.2-8.2) gm/dL Albumin 2.2 L (3.4-5.0) gm/dl Stl C.difficile Tox A&B (Negative) - Exam Constitutional: Present: Alert, No distress Neck: Present: other - decreased ROM Respiratory: Present: lungs clear, no respiratory distress Cardiovascular/Chest: Present: tachycardia Abdomen: Present: soft, nontender Extremity: Present: other - flexed fingers of left hand. Absent: lower extremity edema Neurologic: Present: normal mood/affect Eye contact: Present: cooperative, good eye contact Assessment/Plan - Problems/Diagnosis (1) Sepsis Problem: Suspected Qualifiers: Sepsis type: sepsis due to unspecified organism Sepsis acute organ dysfunction status: unspecified Qualified Code(s): A41.9 - Sepsis, unspecified organism Narrative: She had a lactate initially on admission, which has resolved with IV fluids. BP was low, which also improved with fluids. She has been afebrile, and WBC not elevated at 7.9. Procalcitonin was very low at 0.11. She technically met sepsis criteria with low blood pressure, source of infection (UTI and c diff), tachycardia, tachypnea, altered mental status. She reports her blood pressure is low at her baseline. She has an indwelling suprapubic catheter, so her urine is always contaminated. She is not currently septic. she currently reports feeling like her normal self and would like to go back to [facility]. Unfortunately, they cannot accept her back today since it is Saturday. (2) Altered mental status, unspecified Problem: Resolved Qualifiers: Altered mental status type: disorientation Qualified Code(s): R41.0 - Disor ientation, unspecified Narrative: There was some concern from nursing staff yesterday that she may have had some confusion. She appears to be completely lucid today, and she reports feeling like her normal self. (3) Clostridium difficile infection Problem: Chronic Narrative: She states she has struggled with C. difficile for months. Her test was positive this time also. We will restart her tapered Vanco dosage, at 125 mg 4 times a day. She may be a candidate for fecal transplant. She does not have severe disease currently, but it's recurrent. Anticipate DC back to facility likely tomorrow. (4) Urinary tract infection Problem: Suspected Qualifiers: Urinary tract infection type: acute cystitis Hematuria presence: without hematuria Qualified Code(s): N30.00 - Acute cystitis without hematuria Narrative: Suspected. She has a suprapubic catheter, so her urine is usually contaminated. She has a neurogenic bladder, so may not have expected symptoms. With a procalcitonin of only 0.11, however, systemic infection unlikely. Urine culture growing >100,000 CFU staph. Continue daily rocephin while admitted. (5) Multiple sclerosis Problem: Chronic Narrative: She feels like her contractures are getting worse. She is no longer able to extend her fingers. She last saw her neurologist and get a treatment in June, which she usually gets once every 6 months. Her next neurology appointment is due in November, but since she is feeling like her treatment's not working, will attempt to move up her appointment with discharge orders. (6) Hypokalemia Problem: Acute Narrative: She was given some IV potassium with admission orders, but this morning's potassium was still 2.4. Administered 40 mEq by IV, repeat pending in the morning. Continued home p.o. supplementation. (7) Tachycardia Problem: Acute Narrative: Her heart rate is been around 120 several times with vitals checks. She declined having a marketing services vice president placed. She reports her baseline heart rate is around 100, so she is not significantly increased from her baseline. She was dehydrated on admission, and this likely was contributing. She was in sinus tachycardia on her EKG in the ED. (8) Dehydration Problem: Resolved (9) Neurogenic bladder Problem: Chronic (10) Trigeminal neuralgia of left side of face Problem: Chronic Narrative: Her meds were restarted later than her normal scheduled regimen, so she is having some increased trigeminal neuralgia pain currently. Continued home 300 mg twice daily carbamazepine. (11) Merritt-Danlos syndrome Problem: Chronic
[2019-09-20] MEDS: HYDROcodone/ACETAMINOPHEN 1 EACH TABLET PO PRN ×2 (14:39→22:44)
[2019-09-20 18:11] LABS: Anion Gap 13.3 mmol/L (6.8-13.8); BUN/Creatinine Ratio 18.8 (9.0-21.6); Carbon Dioxide 22.5 mmol/L (24-32.6); Estimated Creat Clear 131.4; Potassium 2.8 mmol/L (3.4-4.6)
[2019-09-20] MEDS: oxyCODONE HCL 5 MG TABLET PO PRN (20:20)
[2019-09-20] MEDS ORDERED: BACLOFEN 10 MG TABLET PO SCH (21:00)
[2019-09-21] MEDS: NORMAL SALINE 1,000 ML IV PRN (05:07)
[2019-09-21 07:47] LABS: Albumin * 2.2 gm/dl (3.4-5.0); Anion Gap 8.5 mmol/L (6.8-13.8); BUN/Creatinine Ratio 12.2 (9.0-21.6); Bilirubin, Total 0.2 mg/dL (0.0-1.1); Ca. Corrected For Albumin 8.9 mg/dL (8.4-10.2); Calcium * 7.8 mg/dL (7.9-10.9); Carbon Dioxide 26.2 mmol/L (24-32.6); Magnesium 1.5 mg/dL (1.2-2.8); Phosphorus 1.2 mg/dL (2.2-4.2); Potassium 2.7 mmol/L (3.4-4.6); Total Protein 4.8 gm/dL (6.2-8.2)
[2019-09-21] MEDS ORDERED: TOPIRAMATE 50 MG TABLET PO SCH (09:00)
[2019-09-21] MEDS ORDERED: CALCIUM CARBONATE 500 MG TAB.CHEW PO SCH (09:00)
[2019-09-21] MEDS ORDERED: POTASSIUM BICARBONATE/CIT AC 25 MEQ TABLET.EFF PO ONE (09:02)
[2019-09-21] MEDS: VANCOMYCIN HCL 50 MG/ML BTL PO SCH ×2 (09:09→14:47)
[2019-09-21] MEDS: POTASSIUM CHLORIDE 20 MEQ TABLET.SA PO SCH (09:10)
--- NOTE | 2019-09-21 09:34 | DS ---
(1) Altered mental status, unspecified Problem: Resolved Qualifiers: Altered mental status type: disorientation Qualified Code(s): R41.0 - Disorientation, unspecified (2) Hypokalemia Problem: Acute (3) Tachycardia Problem: Acute (4) Dehydration Problem: Resolved (5) Clostridium difficile infection Problem: Chronic (6) Multiple sclerosis Problem: Chronic (7) Anxiety and depression Problem: Chronic (8) Sepsis Problem: Resolved Qualifiers: Sepsis type: sepsis due to unspecified organism Sepsis acute organ dysfunction status: unspecified Qualified Code(s): A41.9 - Sepsis, unspecified organism (9) Urinary tract infection Problem: Ruled-out Qualifiers: Urinary tract infection type: acute cystitis Hematuria presence: without hematuria Qualified Code(s): N30.00 - Acute cystitis without hematuria Hospital Course: 59-year-old female with a past medical history of multiple sclerosis, suprapubic catheter, recurrent UTIs, Erler's Danlos syndrome, anxiety and depression, degenerative disc disease, GERD, hypokalemia, neurogenic bladder, scoliosis, shoulder impingement presents from a retirement with complaints of altered mental status, hypotension and diarrhea. She was found to have sepsis and wounds positive for C. difficile and started on vancomycin. She responded well to IV fluid hydration. She was also started on Rocephin for UTI. I do not believe she has a UTI because she is chronically colonized and does not currently have any urinary symptoms. She had been recently treated with a vancomycin taper for her recurrent C. difficile infection. She did not respond to be IV potassium. She did not tolerate oral potassium chloride pills and we do not have the capsules that she typically takes at the retirement. Has returned back to baseline and she is stable to return back to the retirement today. She will be discharged home on a vancomycin taper. Vancomycin pulsed-tapered regimen: 125 mg orally 4 times daily for 14 days, then 125 mg orally twice daily for 7 days, then 125 mg orally once daily for 7 days, then 125 mg orally every 3 days for 6 weeks Procedures Performed: none Results and Findings: Pending Mircobiology Results 09/19/19 10:17 Blood Blood Culture - Preliminary NO GROWTH 24 HOURS 09/19/19 10:17 Blood Blood Culture - Preliminary NO GROWTH 24 HOURS Lab Pending Results 09/19/19 10:17: WBC 7.9, RBC 4.26, Hgb 12.4 L, Hct 38.9, MCV 91.3, MCH 29.1, MCHC 31.9 L, RDW 14.6 H, Plt Count 294, MPV 9.2, Immature Gran % (Auto) 0.10, Immature Gran # (Auto) 0.01, Neutrophils % 85.4 H, Lymphocytes % 6.0 L, Monocytes % 8.2, Eosinophils % 0.0, Basophils % 0.3, Nucleated RBC % 0.0, Neutrophils # 6.7 H, Lymphocytes # 0.47 L, Monocytes # 0.7, Eosinophils # 0.0, Absolute Basophils 0.0 09/19/19 10:17: Sodium 143 H, Plasma Sodium 144 H, Potassium 3.0 L D, Chloride 110 H, Carbon Dioxide 20.6 L, Anion Gap 15.4 H, BUN 21 D, Creatinine 0.73, Est GFR (Non-Af Amer) 87 D, BUN/Creatinine Ratio 28.8 H, Random Glucose 133 H, Calcium 7.2 L, Calcium Adj for Albumin 8.1 L, Total Bilirubin 0.3, AST 17, ALT 29, Alkaline Phosphatase 92, Total Protein 5.1 L, Albumin 2.5 L 09/19/19 10:17: Lactic Acid, Venous 3.5 H* 09/19/19 10:17: Troponin I Less than 0.017 09/19/19 10:17: Procalcitonin 0.11 09/19/19 10:37: Urine Color Yellow, Urine Appearance Slightly cloudy, Urine pH 5.0, Ur Specific [place] 1.025, Urine Protein 100 H, Urine Glucose (UA) Negative, Urine Ketones Negative, Urine Blood 250 H, Urine Nitrate Positive H, Urine Bilirubin Negative, Prot Sulfosalicylic Acd 4+ H, Urine Urobilinogen Normal, Ur Leukocyte Esterase 500 H, Urine RBC 10-25 H, Urine WBC >50 H, Ur Epithelial Cells 0-5, Urine Bacteria 4+ H, Urine Culture Comments Culture to follow 09/19/19 12:35: Lactic Acid, Venous 2.1 H 09/19/19 16:54: Lactic Acid, Venous 2.0 09/19/19 17:50: Troponin I Less than 0.017 09/19/19 21:04: Stl C.difficile Tox A&B Positive H 09/20/19 06:45: WBC 10.1 D, RBC 3.89 L, Hgb 11.2 L, Hct 34.4 L, MCV 88.4, MCH 28.8, MCHC 32.6, RDW 14.3 H, Plt Count 216, MPV 9.2, Neutrophils % (Manual) 50, Band Neuts % (Manual) 38 H, Lymphocytes % (Manual) 6 L, Monocytes % (Manual) 6, Neutrophils # (Manual) 5.1, Lymphocytes # (Manual) 0.6 L, Monocytes # (Manual) 0.6, Platelet Estimate Normal, RBC Morphology Normal 09/20/19 06:45: Sodium 138, Plasma Sodium 138, Potassium 2.4 L*, Chloride 107 H, Carbon Dioxide 19.7 L, Anion Gap 13.7, BUN 14, Creatinine 0.42, Est GFR (Non-Af Amer) 164 H D, BUN/Creatinine Ratio 33.3 H, Random Glucose 124 H, Calcium 7.8 L, Calcium Adj for Albumin 8.9, Total Bilirubin 0.4, AST 35, ALT 34, Alkaline Phosphatase 80, Total Protein 4.9 L, Albumin 2.2 L 09/20/19 17:55: Sodium 137, Plasma Sodium 137, Potassium 2.8 L, Chloride 104, Ca rbon Dioxide 22.5 L, Anion Gap 13.3, BUN 9, Creatinine 0.48, Est GFR (Non-Af Amer) 141 H, BUN/Creatinine Ratio 18.8, Random Glucose 98, Calcium 8.0 09/21/19 07:25: Sodium 142, Plasma Sodium 142, Potassium 2.7 L, Chloride 110 H, Carbon Dioxide 26.2, Anion Gap 8.5, BUN 5, Creatinine 0.41, Est GFR (Non-Af Amer) 169 H, BUN/Creatinine Ratio 12.2, Random Glucose 94, Calcium 7.8 L, Calcium Adj for Albumin 8.9, Phosphorus 1.2 L, Magnesium 1.5, Total Bilirubin 0.2, AST 39, ALT 46, Alkaline Phosphatase 77, Total Protein 4.8 L, Albumin 2.2 L Discharge Location: [facility] Disposition: SNF Condition: Stable Discharge Activity: Non-Weight bearing Discharge Diet: General/regular food [facility] Therapy: Physical Therapy, Occupation Therapy, Speech Therapy Referrals: Laurence Goldsmith MD [Primary Care Provider] - Additional Patient Instructions (free text): To return to [facility], SNF with PT, OT and Speech to evaluate and treat. Vancomycin pulsed-tapered regimen: 125 mg orally 4 times daily for 14 days, then 125 mg orally twice daily for 7 days, then 125 mg orally once daily for 7 days, then 125 mg orally every 3 days for 6 weeks Prescriptions (Any new or edited meds): Vancomycin HCl [Vancomycin] 125 mg PO Q6H #1 btl Transmission Status: Received by [facility] Complete Home Medications List: Complete Home Medication List: Gabapentin [Neurontin] 1,200 mg PO BID 07/13/14 Aspirin/Acetaminophen/Caffeine [Excedrin Migraine Caplet] 2 ea PO Q6H PRN 05/14/18 Polyvinyl Alcohol [Artificial Tears] 1 drp EACHEYE Q1H PRN 05/14/18 ibuprofen 800 mg tablet 800 mg PO BID PRN #60 tab 06/02/19 Carbamazepine [Carbatrol] 200 mg PO BID 06/13/19 Acetaminophen 650 mg PO Q4H PRN MDD 3gm 06/28/19 Baclofen 20 mg PO HS 06/28/19 Calcium Carbonate [Tums] 1,000 mg PO DAILY 30 Days #60 tab.chew 06/30/19 oxycodone 5 mg tablet 5 mg PO Q6H PRN #120 tab 06/30/19 potassium chloride 10 mEq capsule,extended release 40 meq PO DAILY cap 07/06/19 topiramate 100 mg tablet 100 mg PO DAILY 07/06/19 topiramate 50 mg tablet 50 mg PO 1100,1630 07/06/19 docusate sodium 100 mg capsule 200 mg PO BID PRN 07/30/19 escitalopram oxalate 20 mg tablet 40 mg PO DAILY #1 tab 07/30/19 loperamide 2 mg tablet See Rx Instructions .ROUTE .COMPLEX PRN 07/30/19 multivitamin 1 tab PO DAILY 07/30/19 Baclofen 20 mg PO TID PRN 08/27/19 Bisacodyl [Laxative Suppository] 10 mg RC DAILY PRN 08/27/19 Flaxseed Oil [Flax Seed Oil] 1,000 mg PO DAILY PRN 09/19/19 HYDROcodone/ACETAMINOPHEN [Hydrocodone-Acetamin 5-325 mg] 1 ea PO Q4H PRN 09/19/19 carBAMazepine [Tegretol Chewable Tablets] 100 mg PO BID 09/19/19 Vancomycin HCl [Vancomycin] 125 mg PO Q6H #1 btl 09/21/19
[2019-09-21] MEDS: carBAMazepine 100 MG TAB.CHEW PO SCH (09:56)
[2019-09-21] MEDS: carBAMazepine 200 MG TABLET PO SCH (09:58)
[2019-09-21] MEDS: oxyCODONE HCL 5 MG TABLET PO PRN (10:54)
[2019-09-21] MEDS: HYDROcodone/ACETAMINOPHEN 1 EACH TABLET PO PRN (10:54)
[2019-09-21] MEDS: GABAPENTIN 600 MG TABLET PO SCH (14:40)
[2019-09-21] MEDS: ESCITALOPRAM OXALATE 10 MG TAB PO SCH (14:41)
[2019-09-21] MEDS: TOPIRAMATE 50 MG TABLET PO SCH (14:41)
[2019-09-21] MEDS ORDERED: HEPARIN SOD.,PORCINE 100 UNITS/ML IV ONE (15:18)
[2019-09-21 16:50] VITALS: BP 96/66
== END 2019-09-21 16:35 | DRG 872 ==
LOC: ER 09:12 → MS 14:34
PROVIDERS: ADMIT Family Medicine; ATTEND Internal Medicine
DX: A04.71 Enterocolitis due to Clostridium difficile, recurrent; B95.62 Methicillin resistant Staphylococcus aureus infection as the cause of diseases classified elsewhere; R00.0 Tachycardia, unspecified; Z11.59 Encounter for screening for other viral diseases; G50.0 Trigeminal neuralgia; R94.31 Abnormal electrocardiogram [ECG] [EKG]; Q79.60 Ehlers-Danlos syndrome, unspecified; A41.9 Sepsis, unspecified organism; R41.0 Disorientation, unspecified; T83.518A Infection and inflammatory reaction due to other urinary catheter, initial encounter; E87.6 Hypokalemia; Y73.8 Miscellaneous gastroenterology and urology devices associated with adverse incidents, not elsewhere classified; E86.0 Dehydration; G35 Multiple sclerosis
CPT/HCPCS: 36415; 70450; 71010; 71045; 80048; 80053; 81001; 83605; 83735; 84100; 84132; 84145; 84484; 85007; 85025; 87040; 87081; 87086; 87493; 93005; 96361; 96365; 96367; 99284; 99285; C9803; U0001

== ENCOUNTER 2019-12-21 09:07 | Inpatient (IN) ==
--- NOTE | 2019-12-21 09:34 | ERNOTE ---
Medical Problem HPI - General Chief Complaint: General Assessment Time Seen by Provider: 12/21/19 09:10 Source: patient Exam Limitations: no limitations - Immun/Allergies/Home Medications Immunizations: IMMUNIZATION HX Immunizations Up to Date Yes History of Influenza Vaccine Yes Hx Pneumococcal Vaccination Yes Allergies/Adverse Reactions: Allergies modafinil [From Provigil] Allergy (Intermediate, Verified 12/21/19 10:28) Hives adhesive Allergy (Mild, Verified 12/21/19 10:28) Other Rips off skin Sulfa (Sulfonamide Antibiotics) [Sulfa(Sulfonamide Antibiotics)] Allergy (Mild, Verified 12/21/19 10:28) Hives lactose Adverse Reaction (Verified 12/21/19 10:28) stomach issues Home Medications: HOME MEDICATIONS Gabapentin [Neurontin] 1,200 mg PO BID 07/13/14 [Last Taken 05/01/15 08:00] Glycerin/Propylene Glycol [Artificial Tears] 1 drp EACHEYE Q1H PRN 05/14/18 [Last Taken Unknown] ibuprofen 800 mg tablet 800 mg PO BID PRN #60 tab 06/02/19 [Last Taken Unknown] Acetaminophen 650 mg PO Q4H PRN MDD 3gm 06/28/19 [Last Taken Unknown] Baclofen 20 mg PO HS 06/28/19 [Last Taken Unknown] topiramate 100 mg tablet 100 mg PO DAILY 07/06/19 [Last Taken Unknown] topiramate 50 mg tablet 50 mg PO 1100,1630 07/06/19 [Last Taken Unknown] docusate sodium 100 mg capsule 200 mg PO BID PRN 07/30/19 [Last Taken Unknown] escitalopram oxalate 20 mg tablet 40 mg PO DAILY #1 tab 07/30/19 [Last Taken Unknown] loperamide 2 mg tablet See Rx Instructions .ROUTE .COMPLEX PRN 07/30/19 [Last Taken Unknown] multivitamin 1 tab PO DAILY 07/30/19 [Last Taken Unknown] Baclofen 20 mg PO TID PRN 08/27/19 [Last Taken Unknown] carBAMazepine [Tegretol Chewable Tablets] 400 mg PO BID 09/19/19 [Last Taken Unknown] potassium chloride 10 mEq capsule,extended release 40 meq PO DAILY #120 cap 09/25/19 [Last Taken Unknown] terbinafine HCl 250 mg tablet 250 mg PO DAILY 84 Days #84 tab 11/13/19 [Last Taken Unknown] calcium carbonate 215 mg calcium (500 mg) chewable tablet 215 mg PO DAILY 11/18/19 [Last Taken Unknown] oxycodone 5 mg tablet 5 mg PO Q6H PRN #120 tab 12/15/19 [Last Taken Unknown] - History of Present History Narrative: Patient is coming to the ER for complaints of a general malaise for about 2 or 3 days. She is bedbound due to MS and progressive muscle weakness. She cannot use her legs, has minimum use of her arms. She has an indwelling suprapubic catheter due to incontinence that is chronically colonized. She was diagnosed with recurrent C. difficile in August and started back on vancomycin, per her chart she finished oral vancomycin on 12/07. She states that she still has diarrhea cannot state how often. It sounds on the chart like her presentation in August was similar to today and at that point she had just finished vancomycin as well. The only pain she reports is in the abdomen, denies any vomiting. She denies any fever or any upper respiratory symptoms and is unwilling some questions. The concern from the care center was that her blood pressure was running low in the 80s over 50s and her heart rate was elevated. On review of her chart her blood pressure seem to be running in the 90s systolic at baseline Review of Systems - Review of Systems Constitutional: Present: weakness, fatigue, malaise. Absent: fever ENT: Absent: nose congestion, sore throat Respiratory: Absent: shortness of breath Cardiology: Absent: chest pain Gastrointestinal/Abdominal: Present: abdominal pain. Absent: nausea, vomiting Genitourinary: Present: See HPI Musculoskeletal: Absent: back pain Neurological: Present: See HPI, weakness. Absent: headache Medical History (Last Reviewed 12/21/19 @ 09:34 by Dai Chan MD) Biceps tendinitis of left shoulder (Chronic) History of UTI (Acute) Trochanteric bursitis (Acute) Shoulder pain (Chronic) Shoulder impingement (Chronic) Scoliosis (Chronic) Neurogenic bladder (Chronic) H/O dysmenorrhea (Chronic) Multiple sclerosis (Chronic) Onset Date: 1992 Incomplete bladder emptying (Chronic) Hip pain (Chronic) GERD (gastroesophageal reflux disease) (Chronic) Frequent infections (Chronic) Merritt-Danlos syndrome (Chronic) Depression (Chronic) DDD (degenerative disc disease) (Chronic) Colon polyps (Acute) Onset Date: 12/20/10 [place] Anxiety (Chronic) Surgical History: Surgical History (Last Reviewed 12/21/19 @ 09:34 by Dai Chan MD) H/O breast biopsy Onset Date: 2007 stereotactic core needle biopsy of the left breast w/benign findings S/P DANIELLE-BSO Onset Date: 02/26/06 done by -Fibroids, MMR S/P colonoscopy Onset Date: 12/20/10 stereotactic core needle biopsy of the left breast w/benign findings Status post insertion of intrathecal baclofen pump Onset Date: 12/15/11 Family History: Family History (Last Reviewed 12/21/19 @ 10:28 by Courtney Plascencia RN) Father , 79 COPD (chronic obstructive pulmonary disease) Hypertension Asthma Mother Hypertension Alzheimers disease Glaucoma Osteoporosis Grandmother Diabetes Social History: (Last Reviewed 12/21/19 @ 10:28 by Courtney Plascencia RN) Social History: Marital status: current occupational status: disabled current occupation: Disabled Highest education level completed: some college, no degree Service: No Tobacco: Smoking Status: Never smoker Alcohol: alcohol intake: never Substance Use: substance use type: does not use Dietary Habits: caffeine: Yes caffeine comment: occasional Type: coffee, carbonated beverages Physical Exam - Physical Exam General Appearance: Present: wd/wn, alert, no apparent distress Head Exam: Present: normal inspection Eye Exam: Normal inspection: bilateral Ears, Nose, Throat: Present: normal pharynx Respiratory: Present: no respiratory distress, normal breath sounds, no accessory muscle use, lungs clear Cardiovascular/Chest: Present: no murmur, normal peripheral pulses, tachycardia Gastrointestinal/Abdominal: Present: normal bowel sounds, nondistended, soft, tenderness - mild left lower abdomen. Absent: guarding, rebound Back Exam: Present: normal inspection, other - gluteal redness but no skin breakdown, no stool in diaper Extremity Exam: Present: other - contracted and atrophic Neurological Exam: Present: alert, oriented, normal mood/affect Skin Exam: Present: normal color, warm/dry Progress - Vital Signs Patient's Vital Signs:: I have reviewed the patient's vital signs. Vital Signs: Vital Signs 12/21/19 09:11 Temperature 37.8 C Pulse Rate 130 H Respiratory Rate 20 Blood Pressure 88/36 L O2 Sat by Pulse Oximetry 96 - Progress/Reassessment Chief Complaint: General Assessment Progress Note-Subjective: 12/21/19 10:45 no stool while here, last BM per care center yesterday, rates abdominal pain at 1/10 BP and HR improved after fluid bolus Patient meets SIRS criteria, most likely source urine 12/21/19 10:[address] Escobar 12/21/19 11:07 discussed with shira Duarte to admit to hospital for observation for UTI and sepsis most recent culture grew three different bacteria, will treat with cefepime for pseudomonas and macrobid for the other two as patient has minimal lower abdominal pain and benign exam, will treat for UTI and defer imaging 12/21/19 11:24 updated patient and on plan Departure Clinical Impression: Sepsis secondary to UTI, Generalized weakness - Departure Disposition: Still a patient Condition: Stable Referrals: Laurence Escobar MD [Primary Care Provider] -
[2019-12-21] MEDS ORDERED: NORMAL SALINE 1,000 ML IV ONE (09:38)
[2019-12-21 09:54] LABS: Hematocrit 42.9 % (37.0-47.0); Hemoglobin 13.5 gm/dL (12.5-16.0); Mean Cell Volume 93.9 fl (78-100); Mean Corpuscular Hemoglobin 29.5 pg (27-31); Mean Corpuscular Hgb Conc 31.5 g/dl (32-36); Mean Platelet Volume 9.7 fl (8-12.5); Neutrophil % 88.2 % (42-75.0); Platelet Count 283 K/mm3 (150-450); Red Blood Count 4.57 M/mm3 (4.2-5.4); Red Cell Distribution Width 13.1 % (11.5-14.0); White Blood Count 14.7 K/mm3 (4.0-10.5)
[2019-12-21 10:09] LABS: Albumin * 2.6 gm/dl (3.4-5.0); Anion Gap 15.9 mmol/L (6.8-13.8); BUN/Creatinine Ratio 18.3 (9.0-21.6); Bilirubin, Total 0.2 mg/dL (0.0-1.1); Ca. Corrected For Albumin 9.3 mg/dL (8.4-10.2); Calcium * 8.5 mg/dL (7.9-10.9); Carbon Dioxide 18.7 mmol/L (24-32.6); Potassium 3.6 mmol/L (3.4-4.6); Total Protein 5.9 gm/dL (6.2-8.2)
[2019-12-21 10:25] LABS: Urine Appearance Cloudy (CLEAR); Urine Bilirubin Negative (NEGATIVE); Urine Blood 250 /ul (NEGATIVE); Urine Color Yellow; Urine Ketone 50 mg/dL (NEGATIVE); Urine Nitrite Positive (NEGATIVE); Urine Protein 30 mg/dL (NEGATIVE); Urine Specific Gravity 1.025 SP.GR. (1.005-1.010); Urine Urobilinogen Normal (NORMAL)
[2019-12-21 10:26] LABS: Urine Bacteria 1+
[2019-12-21 10:29] LABS: CRP 19.9 mg/dL (0.0-0.9)
[2019-12-21] MEDS ORDERED: CEFEPIME HCL 1 GM/100 ML BAG IV ONE (11:15)
[2019-12-21] MEDS: NORMAL SALINE 1,000 ML IV SCH ×2 (11:37→13:28)
[2019-12-21] MEDS ORDERED: DOCUSATE SODIUM 100 MG CAPSULE PO PRN (12:40)
[2019-12-21] MEDS ORDERED: IBUPROFEN 800 MG TABLET PO PRN (12:40)
[2019-12-21] MEDS ORDERED: GLYCERIN/PROPYLENE GLYCOL 150 DROP BTL EACHEYE PRN (12:40)
[2019-12-21] MEDS ORDERED: LOPERAMIDE HCL 2 MG CAPSULE PO PRN (12:40)
[2019-12-21] MEDS ORDERED: BACLOFEN 10 MG TABLET PO PRN (12:40)
[2019-12-21] MEDS ORDERED: oxyCODONE HCL 5 MG TABLET PO PRN (12:40)
[2019-12-21] MEDS ORDERED: ACETAMINOPHEN 325 MG TABLET PO PRN (12:40)
--- NOTE | 2019-12-21 13:16 | HP ---
Chief Complaint - Chief Complaint Date of Service: 12/21/19 Time of Service: 12:03 Chief Complaint: Lower abdominal pain and hypotension History of Present Illness: 59-year-old female with a past medical history of degenerative disc disease, anxiety and depression, Erler's Danlos syndrome, recurrent urinary tract infections, recurrent C. difficile infections, GERD, multiple sclerosis, neurogenic bladder with indwelling suprapubic catheter, scoliosis presents from snf with complaints of hypotension and generalized malaise for past few days. At the snf her blood pressure was running in the 80s over 50s. In the emergency room she was found to be tachycardic with heart rate in the 130s, blood pressure was near her baseline in the low 100 systolic, elevated lactic acid at 2.9 and CRP of 19.9, leukocytosis at 14.7. She was admitted for SIRS and UTI. She started on Macrobid and cefepime based on her most recent urine culture 1 week ago. She did receive 1 L fluids in the emergency room. She is being admitted for observation. Medical History (Last Reviewed 12/21/19 @ 13:38 by Marilin Fuller RN) Biceps tendinitis of left shoulder (Chronic) History of UTI (Acute) Trochanteric bursitis (Acute) Shoulder pain (Chronic) Shoulder impingement (Chronic) Scoliosis (Chronic) Neurogenic bladder (Chronic) H/O dysmenorrhea (Chronic) Multiple sclerosis (Chronic) Onset Date: 1992 Incomplete bladder emptying (Chronic) Hip pain (Chronic) GERD (gastroesophageal reflux disease) (Chronic) Frequent infections (Chronic) Merritt-Danlos syndrome (Chronic) Depression (Chronic) DDD (degenerative disc disease) (Chronic) Colon polyps (Acute) Onset Date: 12/20/10 [place] Anxiety (Chronic) Surgical History: Surgical History (Last Reviewed 12/21/19 @ 13:38 by Marilin Fuller RN) H/O breast biopsy Onset Date: 2007 stereotactic core needle biopsy of the left breast w/benign findings S/P DANIELLE-BSO Onset Date: 02/26/06 done by -Fibroids, MMR S/P colonoscopy Onset Date: 12/20/10 stereotactic core needle biopsy of the left breast w/benign findings Status post insertion of intrathecal baclofen pump Onset Date: 12/15/11 Family History: Family History (Last Reviewed 12/21/19 @ 13:38 by Marilin Fuller RN) Father , 79 COPD (chronic obstructive pulmonary disease) Hypertension Asthma Mother Hypertension Alzheimers disease Glaucoma Osteoporosis Grandmother Diabetes Social History: (Last Reviewed 12/21/19 @ 13:38 by Marilin Fuller RN) Social History: Marital status: current occupational status: disabled current occupation: Disabled Highest education level completed: some college, no degree Service: No Tobacco: Smoking Status: Never smoker Alcohol: alcohol intake: never Substance Use: substance use type: does not use Dietary Habits: caffeine: Yes caffeine comment: occasional Type: coffee, carbonated beverages Review Of Systems (GEN) - Review of Systems Generalized/Overall Review: Absent: Chills, Fever Respiratory: Absent: Shortness of Breath Cardiac: Absent: Chest Pain Abdominal: Present: Abdominal Pain - lower Misc: All systems neg except as marked Immunizations: IMMUNIZATION HX Immunizations Up to Date Yes History of Influenza Vaccine Yes Hx Pneumococcal Vaccination Yes Allergies/Adverse Reactions: Allergies Allergy/AdvReac Type Severity Reaction Status Date / Time modafinil [From Provigil] Allergy Intermediate Hives Verified 12/21/19 13:39 adhesive Allergy Mild Other Verified 12/21/19 13:39 Sulfa (Sulfonamide Allergy Mild Hives Verified 12/21/19 13:39 Antibiotics) [Sulfa(Sulfonamide Antibiotics)] lactose AdvReac stomach Verified 12/21/19 13:39 issues Home Medications: HOME MEDICATIONS Gabapentin [Neurontin] 1,200 mg PO BID 07/13/14 [Last Taken 05/01/15 08:00] Glycerin/Propylene Glycol [Artificial Tears] 1 drp EACHEYE Q1H PRN 05/14/18 [Last Taken Unknown] ibuprofen 800 mg tablet 800 mg PO BID PRN #60 tab 06/02/19 [Last Taken Unknown] Acetaminophen 650 mg PO Q4H PRN MDD 3gm 06/28/19 [Last Taken Unknown] Baclofen 20 mg PO HS 06/28/19 [Last Taken Unknown] topiramate 100 mg tablet 100 mg PO DAILY 07/06/19 [Last Taken Unknown] topiramate 50 mg tablet 50 mg PO 1100,1630 07/06/19 [Last Taken Unknown] docusate sodium 100 mg capsule 200 mg PO BID PRN 07/30/19 [Last Taken Unknown] escitalopram oxalate 20 mg tablet 40 mg PO DAILY #1 tab 07/30/19 [Last Taken Unknown] multivitamin 1 tab PO DAILY 07/30/19 [Last Taken Unknown] Baclofen 20 mg PO TID PRN 08/27/19 [Last Taken Unknown] terbinafine HCl 250 mg tablet 250 mg PO DAILY 84 Days #84 tab 11/13/19 [Last Taken Unknown] oxycodone 5 mg tablet 5 mg PO Q6H PRN #120 tab 12/15/19 [Last Taken Unknown] Aspirin/Acetaminophen/Caffeine [Excedrin Extra Strength] 2 tab PO Q6H PRN 12/21/19 [Last Taken Unknown] Bisacodyl 10 mg RC DAILY PRN 12/21/19 [Last Taken Unknown] Calcium Carbonate/Vitamin D3 [Calcium 500 mg Chewable Tablet] 2 ea PO DAILY 12/21/19 [Last Taken Unknown] Flaxseed Oil [Flax Seed Oil] 1,000 mg PO DAILY PRN 12/21/19 [Last Taken Unknown] Loperamide HCl [Imodium] 2 mg PO PRN PRN 12/21/19 [Last Taken Unknown] Potassium Chloride 40 meq PO DAILY 12/21/19 [Last Taken Unknown] Vancomycin HCl [Vancomycin] 2.5 ml PO Q3D 12/21/19 [Last Taken Unknown] carBAMazepine [Tegretol Xr] 400 mg PO BID 12/21/19 [Last Taken Unknown] Exam - Exam Vital Signs: Vital Signs - Last Taken Temp 37.8 C 12/21/19 12:00 Pulse 113 H 12/21/19 12:00 Resp 20 12/21/19 12:00 BP 101/65 12/21/19 12:00 Pulse Ox 96 12/21/19 12:00 Constitutional: Present: Alert, Cooperative, Well developed, Well nourished, No distress, Middle aged ENT Exam: Present: hearing grossly normal Eye Exam: bilateral eye: normal inspection, PERRL Neck: Present: non-tender, supple. Absent: lymphadenopathy (R), lymphadenopathy (L) Back Exam: Present: no CVA tenderness, no vertebral tenderness Respiratory: Present: lungs clear, no respiratory distress, no accessory muscle use, No wheezing. Absent: crackles, rhonchi Cardiovascular/Chest: Present: normal peripheral pulses, regular rate, rhythm, no edema, no murmur Peripheral Pulses: dorsalis-pedis (R): 1+, dorsalis-pedis (L): 1+ Abdomen: Present: Normal bowel sounds, soft, nontender /Rectal: Present: Other - Suprapubic catheter in place Extremity: Present: no pedal edema Skin Exam: Present: normal color, warm/dry Neurologic: Present: alert, normal mood/affect Appearance: Present: appropriate appearance, appropriate insight Eye contact: Present: cooperative Thoughts: Present: normal thought pattern, normal mood /affect Diagnostic Studies: Abnormal Lab Results 12/21/19 12/21/19 12/21/19 Range/Units 09:40 09:40 09:40 WBC 14.7 H (4.0-10.5) K/mm3 MCHC 31.5 L (32-36) g/dl Immature Gran # (Auto) 0.05 H (0.000-0.0310) K/mm3 Neutrophils % 88.2 H (42-75.0) % Lymphocytes % 2.7 L (20-51) % Neutrophils # 13.0 H (1.3-6.0) K/mm3 Lymphocytes # 0.40 L (1.5-3.5) k/mm3 Monocytes # 1.2 H (0.0-1.0) k/mm3 Carbon Dioxide 18.7 L (24-32.6) mmol/L Anion Gap 15.9 H (6.8-13.8) mmol/L Lactic Acid, Venous 2.9 H* (0.4-2.0) mmol/L ALT 18 L (19-67) U/L C-Reactive Prot, Quant 19.9 H (0.0-0.9) mg/dL Total Protein 5.9 L (6.2-8.2) gm/dL Albumin 2.6 L (3.4-5.0) gm/dl Urine Protein (NEGATIVE) mg/dL Urine Blood (NEGATIVE) /ul Urine Nitrate (NEGATIVE) Ur Leukocyte Esterase (NEGATIVE) /ul Urine RBC (0-5) /hpf Urine WBC (0-5) /hpf Ur Epithelial Cells (0-5) /hpf Urine Bacteria (NONE) 12/21/19 Range/Units 10:05 WBC (4.0-10.5) K/mm3 MCHC (32-36) g/dl Immature Gran # (Auto) (0.000-0.0310) K/mm3 Neutrophils % (42-75.0) % Lymphocytes % (20-51) % Neutrophils # (1.3-6.0) K/mm3 Lymphocytes # (1.5-3.5) k/mm3 Monocytes # (0.0-1.0) k/mm3 Carbon Dioxide (24-32.6) mmol/L Anion Gap (6.8-13.8) mmol/L Lactic Acid, Venous (0.4-2.0) mmol/L ALT (19-67) U/L C-Reactive Prot, Quant (0.0-0.9) mg/dL Total Protein (6.2-8.2) gm/dL Albumin (3.4-5.0) gm/dl Urine Protein 30 H (NEGATIVE) mg/dL Urine Blood 250 H (NEGATIVE) /ul Urine Nitrate Positive H (NEGATIVE) Ur Leukocyte Esterase 100 H (NEGATIVE) /ul Urine RBC 10-25 H (0-5) /hpf Urine WBC 10-25 H (0-5) /hpf Ur Epithelial Cells 5-10 H (0-5) /hpf Urine Bacteria 1+ H (NONE) Laboratory Results WBC 14.7 K/mm3 (4.0-10.5) H 12/21/19 09:40 RBC 4.57 M/mm3 (4.2-5.4) 12/21/19 09:40 Hgb 13.5 gm/dL (12.5-16.0) 12/21/19 09:40 Hct 42.9 % (37.0-47.0) 12/21/19 09:40 MCV 93.9 fl (78-100) 12/21/19 09:40 MCH 29.5 pg (27-31) 12/21/19 09:40 MCHC 31.5 g/dl (32-36) L 12/21/19 09:40 RDW 13.1 % (11.5-14.0) 12/21/19 09:40 Plt Count 283 K/mm3 (150-450) 12/21/19 09:40 MPV 9.7 fl (8-12.5) 12/21/19 09:40 Immature Gran % (Auto) 0.30 % (0.001-0.429) 12/21/19 09:40 Immature Gran # (Auto) 0.05 K/mm3 (0.000-0.0310) H 12/21/19 09:40 Neutrophils % 88.2 % (42-75.0) H 12/21/19 09:40 Lymphocytes % 2.7 % (20-51) L 12/21/19 09:40 Monocytes % 8.2 % (0.0-9) 12/21/19 09:40 Eosinophils % 0.1 % (0.0-3.0) 12/21/19 09:40 Basophils % 0.5 % (0.0-1.0) 12/21/19 09:40 Nucleated RBC % 0.0 k/mm3 (0-1) 12/21/19 09:40 Neutrophils # 13.0 K/mm3 (1.3-6.0) H 12/21/19 09:40 Lymphocytes # 0.40 k/mm3 (1.5-3.5) L 12/21/19 09:40 Monocytes # 1.2 k/mm3 (0.0-1.0) H 12/21/19 09:40 Eosinophils # 0.0 k/mm3 (0.0-0.7) 12/21/19 09:40 Absolute Basophils 0.1 k/mm3 (0.0-0.1) 12/21/19 09:40 Sodium 135 mmol/L (132-142) 12/21/19 09:40 Plasma Sodium 135 mmol/L (130-142) 12/21/19 09:40 Potassium 3.6 mmol/L (3.4-4.6) 12/21/19 09:40 Chloride 104 mmol/L (97-106) 12/21/19 09:40 Carbon Dioxide 18.7 mmol/L (24-32.6) L 12/21/19 09:40 Anion Gap 15.9 mmol/L (6.8-13.8) H 12/21/19 09:40 BUN 11 mg/dL (3-23) 12/21/19 09:40 Creatinine 0.60 mg/dL (0.4-1.4) 12/21/19 09:40 Est GFR (Non-Af Amer) 109 mL/min (60-130) 12/21/19 09:40 BUN/Creatinine Ratio 18.3 (9.0-21.6) 12/21/19 09:40 Random Glucose 108 mg/dL (70-110) 12/21/19 09:40 Lactic Acid, Venous 0.8 mmol/L (0.4-2.0) 12/21/19 12:20 Calcium 8.5 mg/dL (7.9-10.9) 12/21/19 09:40 Calcium Adj for Albumin 9.3 mg/dL (8.4-10.2) 12/21/19 09:40 Total Bilirubin 0.2 mg/dL (0.0-1.1) 12/21/19 09:40 AST 15 U/L (0-48) 12/21/19 09:40 ALT 18 U/L (19-67) L 12/21/19 09:40 Alkaline Phosphatase 100 U/L (50-170) 12/21/19 09:40 C-Reactive Prot, Quant 19.9 mg/dL (0.0-0.9) H 12/21/19 09:40 Total Protein 5.9 gm/dL (6.2-8.2) L 12/21/19 09:40 Albumin 2.6 gm/dl (3.4-5.0) L 12/21/19 09:40 Procalcitonin 0.18 ng/mL (0.05-0.50) 12/21/19 09:40 Urine Color Yellow 12/21/19 10:05 Urine Appearance Cloudy (CLEAR) 12/21/19 10:05 Urine pH 6.0 pH (5.0-7.0) 12/21/19 10:05 Ur Specific [place] 1.025 SP.GR. (1.005-1.010) 12/21/19 10:05 Urine Protein 30 mg/dL (NEGATIVE) H 12/21/19 10:05 Urine Glucose (UA) Negative mg/dL (NEGATIVE) 12/21/19 10:05 Urine Ketones 50 mg/dL (NEGATIVE) 12/21/19 10:05 Urine Blood 250 /ul (NEGATIVE) H 12/21/19 10:05 Urine Nitrate Positive (NEGATIVE) H 12/21/19 10:05 Urine Bilirubin Negative mg/dl (NEGATIVE) 12/21/19 10:05 Prot Sulfosalicylic Acd 1+ mg/dL (0) 12/21/19 10:05 Urine Urobilinogen Normal EU/dl (NORMAL) 12/21/19 10:05 Ur Leukocyte Esterase 100 /ul (NEGATIVE) H 12/21/19 10:05 Urine RBC 10-25 /hpf (0-5) H 12/21/19 10:05 Urine WBC 10-25 /hpf (0-5) H 12/21/19 10:05 Ur Epithelial Cells 5-10 /hpf (0-5) H 12/21/19 10:05 Urine Bacteria 1+ (NONE) H 12/21/19 10:05 Urine Culture Comments Culture to follow 12/21/19 10:05 Assessment/Plan - Narrative Narrative: 59-year-old female with a past medical history of degenerative disc disease, anxiety and depression, Erler's Danlos syndrome, recurrent urinary tract infections, recurrent C. difficile infections, GERD, multiple sclerosis, neurogenic bladder with indwelling suprapubic catheter, scoliosis presents from [facility] with complaints of hypotension and generalized malaise for past few days. At the snf her blood pressure was running in the 80s over 50s. In the emergency room she was found to be tachycardic with heart rate in the 130s, blood pressure was near her baseline in the low 100 systolic, elevated lactic acid at 2.9 and CRP of 19.9, leukocytosis at 14.7. She was admitted for SIRS and UTI. She started on Macrobid and cefepime based on her most recent urine culture 1 week ago. She did receive 1 L fluids in the emergency room. She is being admitted for observation. Plan #1 continue with cefepime and Macrobid, day 1. #2 start probiotics, Saccharomyces twice daily #3 follow-up urine culture results #4 resume home medications for comorbidities #5 Obtain CBC and CMP in the morning - Assessment/Plan (1) SIRS (systemic inflammatory response syndrome) Problem: Acute (2) GERD (gastroesophageal reflux disease) Problem: Chronic (3) DDD (degenerative disc disease) Problem: Chronic (4) Multiple sclerosis Problem: Chronic (5) UTI (urinary tract infection) due to urinary indwelling catheter Problem: Acute Qualifiers: (6) Hypovolemia Problem: Acute (7) Multiple sclerosis Problem: Chronic (8) GERD (gastroesophageal reflux disease) Problem: Chronic (9) Anxiety Problem: Chronic (10) Depression Problem: Chronic
[2019-12-21] MEDS: SACCHAROMYCES BOULARDII 250 MG CAPSULE PO SCH ×2 (13:25→21:41)
[2019-12-21] MEDS: NITROFURANTOIN/NITROFURAN MAC 100 MG CAPSULE PO SCH ×2 (13:25→21:42)
[2019-12-21] MEDS: TOPIRAMATE 50 MG TABLET PO SCH (16:59)
[2019-12-21] MEDS: BACLOFEN 10 MG TABLET PO SCH (21:41)
[2019-12-21] MEDS: carBAMazepine 200 MG TABLET PO SCH (21:42)
[2019-12-21] MEDS: GABAPENTIN 600 MG TABLET PO SCH (21:42)
[2019-12-22] MEDS: CEFEPIME HCL 1 GM in DEXTROSE 5 % IN WATER 100 ML IV SCH ×6 (00:10→23:43)
[2019-12-22 06:42] LABS: Hematocrit 35.5 % (37.0-47.0); Hemoglobin 11.3 gm/dL (12.5-16.0); Mean Cell Volume 91.7 fl (78-100); Mean Corpuscular Hemoglobin 29.2 pg (27-31); Mean Corpuscular Hgb Conc 31.8 g/dl (32-36); Neutrophil # 12.9 K/mm3 (1.3-6.0); Platelet Count 323 K/mm3 (150-450); Red Blood Count 3.87 M/mm3 (4.2-5.4); Red Cell Distribution Width 13.1 % (11.5-14.0); White Blood Count 16.4 K/mm3 (4.0-10.5)
[2019-12-22 06:58] LABS: Albumin * 2.4 gm/dl (3.4-5.0); Anion Gap 12.4 mmol/L (6.8-13.8); BUN/Creatinine Ratio 19.1 (9.0-21.6); Bilirubin, Total 0.2 mg/dL (0.0-1.1); Carbon Dioxide 23.8 mmol/L (24-32.6); Total Protein 5.2 gm/dL (6.2-8.2)
[2019-12-22 07:12] LABS: Potassium 2.2 mmol/L (3.4-4.6)
[2019-12-22] MEDS: POTASSIUM CHLORIDE IN WATER 100 ML IV SCH ×8 (08:05→20:54)
[2019-12-22] MEDS: TERBINAFINE HCL 250 MG TABLET PO SCH (09:20)
[2019-12-22] MEDS: ESCITALOPRAM OXALATE 10 MG TAB PO SCH (09:20)
[2019-12-22] MEDS: GABAPENTIN 600 MG TABLET PO SCH ×2 (09:20→20:55)
[2019-12-22] MEDS: MULTIVITAMINS 1 CAP CAPSULE PO SCH (09:20)
[2019-12-22] MEDS: CALCIUM CARBONATE 500 MG TAB.CHEW PO SCH ×2 (09:21→09:39)
[2019-12-22] MEDS: carBAMazepine 200 MG TABLET PO SCH ×2 (09:21→20:55)
[2019-12-22] MEDS: POTASSIUM CHLORIDE 20 MEQ TABLET.SA PO SCH (09:23)
[2019-12-22] MEDS: TOPIRAMATE 50 MG TABLET PO SCH ×3 (09:35→17:20)
[2019-12-22] MEDS: NITROFURANTOIN/NITROFURAN MAC 100 MG CAPSULE PO SCH (09:37)
[2019-12-22] MEDS: SACCHAROMYCES BOULARDII 250 MG CAPSULE PO SCH ×2 (10:18→20:55)
[2019-12-22] MEDS: ENOXAPARIN SODIUM 40 MG/0.4 ML SYRG SC SCH (11:05)
[2019-12-22] MEDS: VANCOMYCIN HCL 50 MG/ML BTL PO SCH ×3 (11:06→23:43)
--- NOTE | 2019-12-22 11:17 | PN ---
Subjective - Date and Time Seen Date: 12/22/19 Time: 09:39 Subjective Narrative: She complains she is having diarrhea and has abdominal discomfort. Objective - Review of Systems Generalized/Overall Review: Denies: Chills, Fever Respiratory: Denies: Shortness of Breath Cardiac: Denies: Chest Pain Abdominal: Reports: Abdominal Pain Misc: All systems neg except as marked - Vitals Vitals: Last Vital Signs Temp 36.6 C 12/22/19 07:00 Pulse 84 12/22/19 07:00 Resp 18 12/22/19 07:00 BP 86/54 L 12/22/19 07:00 Pulse Ox 97 12/22/19 07:00 - Abnormal Lab Findings Abnormal Lab Findings: Abnormal Lab Results 12/21/19 12/22/19 12/22/19 Range/Units 12:50 06:26 06:26 WBC 16.4 H (4.0-10.5) K/mm3 RBC 3.87 L (4.2-5.4) M/mm3 Hgb 11.3 L (12.5-16.0) gm/dL Hct 35.5 L (37.0-47.0) % MCHC 31.8 L (32-36) g/dl Immature Gran # (Auto) 0.05 H (0.000-0.0310) K/mm3 Neutrophils % 79.0 H (42-75.0) % Lymphocytes % 12.1 L (20-51) % Neutrophils # 12.9 H (1.3-6.0) K/mm3 Potassium 2.2 L* D (3.4-4.6) mmol/L Chloride 108 H (97-106) mmol/L Carbon Dioxide 23.8 L (24-32.6) mmol/L Est GFR (Non-Af Amer) 144 H D (60-130) mL/min Total Protein 5.2 L (6.2-8.2) gm/dL Albumin 2.4 L (3.4-5.0) gm/dl Stl C.difficile Tox A&B Positive H (Negative) - Exam Constitutional: Present: Alert, Cooperative, Well developed, Well nourished, No distress ENT Exam: Present: hearing grossly normal Neck: Present: non-tender, supple. Absent: lymphadenopathy (R), lymphadenopathy (L) Respiratory: Present: lungs clear, no respiratory distress, no accessory muscle use, No wheezing. Absent: crackles, rhonchi Cardiovascular/Chest: Present: normal peripheral pulses, regular rate, rhythm, no chest tenderness, no edema, no murmur Abdomen: Present: Normal bowel sounds, soft, nontender /Rectal: Present: Other - Suprapubic catheter in place Extremity: Present: no pedal edema Skin Exam: Present: normal color, warm/dry Neurologic: Present: alert, normal mood/affect Appearance: Present: appropriate appearance, appropriate insight Eye contact: Present: cooperative Thoughts: Present: normal thought pattern, normal mood /affect Assessment/Plan Plan Narrative: 59-year-old female with a past medical history of degenerative disc disease, anxiety and depression, Erler's Danlos syndrome, recurrent urinary tract infections, recurrent C. difficile infections, GERD, multiple sclerosis, neurogenic bladder with indwelling suprapubic catheter, scoliosis [facility] complaints of hypotension and generalized malaise for past few days. [facility] the [facility] her blood pressure was running in the 80s over 50s. In the emergency room she was found to be tachycardic with heart rate in the 130s, blood pressure was near her baseline in the low 100 systolic, elevated lactic acid at 2.9 and CRP of 19.9, leukocytosis at 14.7. She was admitted for SIRS and UTI. She started on Macrobid and cefepime based on her most recent urine culture 1 week ago. She did receive 1 L fluids in the emergency room. She is being admitted for observation. She complains of diarrhea and abdominal discomfort. Her C. difficile stool cu lture is positive. Patient would like to be treated for C. difficile. I have also informed her that she will need to be referred to gastroenterology for consideration of fecal transplantation since this is her fourth recurrence of C. difficile. She does not want to be on the Macrobid because she states it does not work for her UTIs. Her potassium is low this morning and I am repleting it. I will recheck a potassium level at noon today. Plan #1 continue UTI treatment with cefepime day 2. Stop Macrobid per patient's request. Start IV vancomycin day 1 #2 start probiotics, Saccharomyces twice daily #3 follow-up urine culture results #4 resume home medications for comorbidities #5 Obtain CBC and CMP in the morning #6 C. difficile is positive, start oral vancomycin taper day 1 #7 replete potassium as needed - Problems/Diagnosis (1) SIRS (systemic inflammatory response syndrome) Problem: Acute (2) GERD (gastroesophageal reflux disease) Problem: Chronic (3) DDD (degenerative disc disease) Problem: Chronic (4) Multiple sclerosis Problem: Chronic (5) UTI (urinary tract infection) due to urinary indwelling catheter Problem: Acute Qualifiers: (6) Hypovolemia Problem: Acute (7) Multiple sclerosis Problem: Chronic (8) GERD (gastroesophageal reflux disease) Problem: Chronic (9) Anxiety Problem: Chronic (10) Depression Problem: Chronic (11) Recurrent Clostridioides difficile diarrhea Problem: Acute (12) Hypokalemia Problem: Acute
[2019-12-22] MEDS ORDERED: VANCOMYCIN/WATER FOR INJ (PEG) 1.5 GM/300 ML BAG IV SCH (12:30)
[2019-12-22] MEDS ORDERED: HEPARIN SOD.,PORCINE 100 UNITS/ML IV PRN (16:14)
[2019-12-22] MEDS: BACLOFEN 10 MG TABLET PO SCH (20:54)
[2019-12-23] MEDS: VANCOMYCIN HCL 50 MG/ML BTL PO SCH ×2 (05:36→11:21)
[2019-12-23 07:33] LABS: Hematocrit 34.6 % (37.0-47.0); Hemoglobin 10.9 gm/dL (12.5-16.0); Mean Corpuscular Hemoglobin 29.6 pg (27-31); Mean Corpuscular Hgb Conc 31.5 g/dl (32-36); Mean Platelet Volume 8.9 fl (8-12.5); Neutrophil # 9.6 K/mm3 (1.3-6.0); Neutrophil % 76.1 % (42-75.0); Platelet Count 306 K/mm3 (150-450); Red Blood Count 3.68 M/mm3 (4.2-5.4); Red Cell Distribution Width 13.2 % (11.5-14.0); White Blood Count 12.5 K/mm3 (4.0-10.5)
[2019-12-23 07:43] LABS: Albumin * 2.1 gm/dl (3.4-5.0); BUN/Creatinine Ratio 11.8 (9.0-21.6); Bilirubin, Total 0.2 mg/dL (0.0-1.1); Ca. Corrected For Albumin 9.6 mg/dL (8.4-10.2); Calcium * 8.4 mg/dL (7.9-10.9); Carbon Dioxide 24.1 mmol/L (24-32.6); Potassium 3.1 mmol/L (3.4-4.6); Total Protein 4.9 gm/dL (6.2-8.2)
--- NOTE | 2019-12-23 09:31 | DS ---
(1) SIRS (systemic inflammatory response syndrome) Problem: Acute (2) GERD (gastroesophageal reflux disease) Problem: Chronic (3) DDD (degenerative disc disease) Problem: Chronic (4) Multiple sclerosis Problem: Chronic (5) UTI (urinary tract infection) due to urinary indwelling catheter Problem: Acute Qualifiers: (6) Hypovolemia Problem: Acute (7) Multiple sclerosis Problem: Chronic (8) GERD (gastroesophageal reflux disease) Problem: Chronic (9) Anxiety Problem: Chronic (10) Depression Problem: Chronic (11) Recurrent Clostridioides difficile diarrhea Problem: Acute (12) Hypokalemia Problem: Acute Hospital Course: 59-year-old female with a past medical history of degenerative disc disease, anxiety and depression, Erler's Danlos syndrome, recurrent urinary tract infections, recurrent C. difficile infections, GERD, multiple sclerosis, neurogenic bladder with indwelling suprapubic catheter, scoliosis presents from skilled nursing with complaints of hypotension and generalized malaise for past few days. At the skilled nursing her blood pressure was running in the 80s over 50s. In the emergency room she was found to be tachycardic with heart rate in the 130s, blood pressure was near her baseline in the low 100 systolic, elevated lactic acid at 2.9 and CRP of 19.9, leukocytosis at 14.7. She was admitted for SIRS and UTI. She started on Macrobid and cefepime based on her most recent urine culture 1 week ago. She did receive 1 L fluids in the emergency room. She is being admitted for observation. She complains of diarrhea and abdominal discomfort. Her C. difficile stool culture is positive. Patient would like to be treated for C. difficile. I have also informed her that she will need to be referred to gastroenterology for consideration of fecal transplantation since this is her fourth recurrence of C. difficile. She does not want to be on the Macrobid because she states it does not work for her UTIs. Her potassium improved with IV repletion. Her white blood cell count is downtrending, her vitals are stable she is stable to be discharged home today with IV antibiotics. She will continue cefepime for total of 10 days until December 30, 2019. She will continue IV vancomycin for total of 7 days until December 28, 2019. She will continue with a Vanco taper for the C. difficile. Vanco taper is as follows: Vancomycin 125 mg 4 times daily for 10 days, then 125 mg orally twice daily for 7 days, then 125 mg daily for 7 days, then 125 mg every 2 or 3 days for 8 weeks. Procedures Performed: none Results and Findings: Pending Mircobiology Results 12/21/19 10:31 Urine,Catheterized Urine Culture - Preliminary Enterobacter Aerogenes Enterobacter [place]ae Alpha Hemolytic Strep Staphylococcus Species 12/21/19 09:58 Blood Blood Culture - Preliminary NO GROWTH 24 HOURS 12/21/19 09:40 Blood Blood Culture - Preliminary NO GROWTH 24 HOURS Lab Pending Results 12/21/19 09:40: WBC 14.7 H, RBC 4.57, Hgb 13.5, Hct 42.9, MCV 93.9, MCH 29.5, MCHC 31.5 L, RDW 13.1, Plt Count 283, MPV 9.7, Immature Gran % (Auto) 0.30, Immature Gran # (Auto) 0.05 H, Neutrophils % 88.2 H, Lymphocytes % 2.7 L, Monocytes % 8.2, Eosinophils % 0.1, Basophils % 0.5, Nucleated RBC % 0.0, Neutrophils # 13.0 H, Lymphocytes # 0.40 L, Monocytes # 1.2 H, Eosinophils # 0.0, Absolute Basophils 0.1 12/21/19 09:40: Sodium 135, Plasma Sodium 135, Potassium 3.6, Chloride 104, Carbon Dioxide 18.7 L, Anion Gap 15.9 H, BUN 11, Creatinine 0.60, Est GFR (Non- Af Amer) 109, BUN/Creatinine Ratio 18.3, Random Glucose 108, Calcium 8.5, Calcium Adj for Albumin 9.3, Total Bilirubin 0.2, AST 15, ALT 18 L, Alkaline Phosphatase 100, C-Reactive Prot, Quant 19.9 H, Total Protein 5.9 L, Albumin 2.6 L 12/21/19 09:40: Lactic Acid, Venous 2.9 H* 12/21/19 09:40: Procalcitonin 0.18 12/21/19 10:05: Urine Color Yellow, Urine Appearance Cloudy, Urine pH 6.0, Ur Specific [place] 1.025, Urine Protein 30 H, Urine Glucose (UA) Negative, Urine Ketones 50, Urine Blood 250 H, Urine Nitrate Positive H, Urine Bilirubin Negative, Prot Sulfosalicylic Acd 1+, Urine Urobilinogen Normal, Ur Leukocyte Esterase 100 H, Urine RBC 10-25 H, Urine WBC 10-25 H, Ur Epithelial Cells 5-10 H, Urine Bacteria 1+ H, Urine Culture Comments Culture to follow 12/21/19 12:20: Lactic Acid, Venous 0.8 12/21/19 12:50: Stl C.difficile Tox A&B Positive H 12/22/19 06:26: WBC 16.4 H, RBC 3.87 L, Hgb 11.3 L, Hct 35.5 L, MCV 91.7, MCH 29.2, MCHC 31.8 L, RDW 13.1, Plt Count 323, MPV 9.0, Immature Gran % (Auto) 0.30, Immature Gran # (Auto) 0.05 H, Neutrophils % 79.0 H, Lymphocytes % 12.1 L, Monocytes % 5.1, Eosinophils % 3.0, Basophils % 0.5, Nucleated RBC % 0.0, Neutrophils # 12.9 H, Lymphocytes # 1.99, Monocytes # 0.8, Eosinophils # 0.5, Absolute Basophils 0.1 12/22/19 06:26: Sodium 142, Plasma Sodium 142, Potassium 2.2 L* D, Chloride 108 H, Carbon Dioxide 23.8 L, Anion Gap 12.4, BUN 9, Creatinine 0.47, Est GFR (Non- Af Amer) 144 H D, BUN/Creatinine Ratio 19.1, Random Glucose 101, Calcium 9.0, Calcium Adj for Albumin 10.0, Total Bilirubin 0.2, AST 12, ALT 19, Alkaline Phosphatase 83, Total Protein 5.2 L, Albumin 2.4 L 12/22/19 13:20: Potassium 2.8 L D 12/23/19 07:26: WBC 12.5 H D, RBC 3.68 L, Hgb 10.9 L, Hct 34.6 L, MCV 94.0, MCH 29.6, MCHC 31.5 L, RDW 13.2, Plt Count 306, MPV 8.9, Immature Gran % (Auto) 0.40, Immature Gran # (Auto) 0.05 H, Neutrophils % 76.1 H, Lymphocytes % 11.9 L, Monocytes % 7.0, Eosinophils % 4.0 H, Basophils % 0.6, Nucleated RBC % 0.0, Neutrophils # 9.6 H, Lymphocytes # 1.49 L, Monocytes # 0.9, Eosinophils # 0.5, Absolute Basophils 0.1 12/23/19 07:26: Sodium 142, Plasma Sodium 142, Potassium 3.1 L, Chloride 109 H, Carbon Dioxide 24.1, Anion Gap 12.0, BUN 6, Creatinine 0.51, Est GFR (Non-Af Amer) 131 H, BUN/Creatinine Ratio 11.8, Random Glucose 96, Calcium 8.4, Calcium Adj for Albumin 9.6, Total Bilirubin 0.2, AST 16, ALT 20, Alkaline Phosphatase 83, Total Protein 4.9 L, Albumin 2.1 L Discharge Location: [facility] Disposition: [facility] Condition: Stable Level of Care: SNF Discharge Activity: Activity as tolerated Discharge Diet: General/regular food Care Home Therapy: Physical Therapy, Occupation Therapy, Speech Therapy Referrals: Laurence Escobar MD [Primary Care Provider] - Additional Patient Instructions (free text): To return to [facility], for PT, OT and ST. She will need a vancomycin trough on Wednesday December 25, 2019 30 minutes before her fourth dose of IV vancomycin. I will continue her on an oral vancomycin taper for C. diff Oral vancomycin taper: Vancomycin 125 mg 4 times daily for 10 days, then 125 mg orally twice daily for 7 days, then 125 mg daily for 7 days, then 125 mg every 3 days for 8 weeks Continue cefepime for 10 days until December 30, 2019 Continue IV vancomycin for total of 7 days, first dose was started on December 22, 2019 Prescriptions (Any new or edited meds): Saccharomyces Boulardii [Florastor] 250 mg PO BID #60 cap Transmission Status: Pending to [facility] Vancomycin HCl [Vancomycin] 125 mg PO Q6H #1 btl Transmission Status: Pending to [facility] Complete Home Medications List: Complete Home Medication List: Gabapentin [Neurontin] 1,200 mg PO BID 07/13/14 Glycerin/Propylene Glycol [Artificial Tears] 1 drp EACHEYE Q1H PRN 05/14/18 ibuprofen 800 mg tablet 800 mg PO BID PRN #60 tab 06/02/19 Acetaminophen 650 mg PO Q4H PRN MDD 3gm 06/28/19 Baclofen 20 mg PO HS 06/28/19 topiramate 100 mg tablet 100 mg PO DAILY 07/06/19 topiramate 50 mg tablet 50 mg PO 1100,1630 07/06/19 docusate sodium 100 mg capsule 200 mg PO BID PRN 07/30/19 escitalopram oxalate 20 mg tablet 40 mg PO DAILY #1 tab 07/30/19 multivitamin 1 tab PO DAILY 07/30/19 Baclofen 20 mg PO TID PRN 08/27/19 terbinafine HCl 250 mg tablet 250 mg PO DAILY 84 Days #84 tab 11/13/19 oxycodone 5 mg tablet 5 mg PO Q6H PRN #120 tab 12/15/19 Aspirin/Acetaminophen/Caffeine [Excedrin Extra Strength] 2 tab PO Q6H PRN 12/21/19 Bisacodyl 10 mg RC DAILY PRN 12/21/19 Calcium Carbonate/Vitamin D3 [Calcium 500 mg Chewable Tablet] 2 ea PO DAILY 12/21/19 Flaxseed Oil [Flax Seed Oil] 1,000 mg PO DAILY PRN 12/21/19 Loperamide HCl [Imodium] 2 mg PO PRN PRN 12/21/19 Potassium Chloride 40 meq PO DAILY 12/21/19 Vancomycin HCl [Vancomycin] 2.5 ml PO Q3D 12/21/19 carBAMazepine [Tegretol Xr] 400 mg PO BID 12/21/19 Cefepime HCl [Maxipime] 1 gm IV Q12H vial 12/23/19 Saccharomyces Boulardii [Florastor] 250 mg PO BID #60 cap 12/23/19 Vancomycin HCl [Vancomycin] 125 mg PO Q6H #1 btl 12/23/19 Vancomycin/Water For Inj (Peg) [Vancomycin] 1.5 gm IV Q24H bag 12/23/19 Amb Orders for Discharge: Vancomycin Trough Time Frame: 12/25/19, Facility: [facility], Location: Laboratory
[2019-12-23] MEDS: SACCHAROMYCES BOULARDII 250 MG CAPSULE PO SCH (10:04)
[2019-12-23] MEDS: TERBINAFINE HCL 250 MG TABLET PO SCH (10:07)
[2019-12-23] MEDS: POTASSIUM CHLORIDE 20 MEQ TABLET.SA PO SCH (10:07)
[2019-12-23] MEDS: ESCITALOPRAM OXALATE 10 MG TAB PO SCH (10:08)
[2019-12-23] MEDS: GABAPENTIN 600 MG TABLET PO SCH (10:08)
[2019-12-23] MEDS: MULTIVITAMINS 1 CAP CAPSULE PO SCH (10:08)
[2019-12-23] MEDS: carBAMazepine 200 MG TABLET PO SCH (10:09)
[2019-12-23] MEDS: TOPIRAMATE 50 MG TABLET PO SCH ×2 (10:10→11:37)
[2019-12-23] MEDS: ENOXAPARIN SODIUM 40 MG/0.4 ML SYRG SC SCH (10:47)
[2019-12-23] MEDS: CEFEPIME HCL 1 GM in DEXTROSE 5 % IN WATER 100 ML IV SCH ×2 (11:37)
[2019-12-23 11:43] VITALS: BP 104/66
== END 2019-12-23 11:00 | DRG 698 ==
LOC: ER 09:07 → MS 09:07
PROVIDERS: ADMIT Internal Medicine; ATTEND Internal Medicine

== ENCOUNTER 2020-01-27 11:51 | Observation (INO) ==
[2020-01-27] MEDS ORDERED: NORMAL SALINE 1,000 ML IV ONE (12:02)
--- NOTE | 2020-01-27 12:18 | ERNOTE ---
Medical Problem HPI - Narrative Date of Service: 01/27/20 - General Chief Complaint: General Assessment Time Seen by Provider: 01/27/20 12:00 Source: patient, EMS Exam Limitations: clinical condition - Immun/Allergies/Home Medications Immunizations: IMMUNIZATION HX Immunizations Up to Date Yes History of Influenza Vaccine Yes Hx Pneumococcal Vaccination Yes Allergies/Adverse Reactions: Allergies modafinil [From Provigil] Allergy (Intermediate, Verified 01/27/20 12:07) Hives adhesive Allergy (Mild, Verified 01/27/20 12:07) Other Rips off skin Sulfa (Sulfonamide Antibiotics) [Sulfa(Sulfonamide Antibiotics)] Allergy (Mild, Verified 01/27/20 12:07) Hives lactose Adverse Reaction (Verified 01/27/20 12:07) stomach issues Home Medications: HOME MEDICATIONS Gabapentin [Neurontin] 1,200 mg PO BID 07/13/14 [Last Taken 05/01/15 08:00] Glycerin/Propylene Glycol [Artificial Tears] 1 drp EACHEYE Q1H PRN 05/14/18 [Last Taken Unknown] ibuprofen 800 mg tablet 800 mg PO BID PRN #60 tab 06/02/19 [Last Taken Unknown] Acetaminophen 650 mg PO Q4H PRN MDD 3gm 06/28/19 [Last Taken Unknown] Baclofen 20 mg PO HS 06/28/19 [Last Taken Unknown] topiramate 100 mg tablet 100 mg PO DAILY 07/06/19 [Last Taken Unknown] topiramate 50 mg tablet 50 mg PO 1100,1630 07/06/19 [Last Taken Unknown] docusate sodium 100 mg capsule 200 mg PO BID PRN 07/30/19 [Last Taken Unknown] escitalopram oxalate 20 mg tablet 40 mg PO DAILY #1 tab 07/30/19 [Last Taken Unknown] multivitamin 1 tab PO DAILY 07/30/19 [Last Taken Unknown] Baclofen 20 mg PO TID PRN 08/27/19 [Last Taken Unknown] terbinafine HCl 250 mg tablet 250 mg PO DAILY 84 Days #84 tab 11/13/19 [Last Taken Unknown] oxycodone 5 mg tablet 5 mg PO Q6H PRN #120 tab 12/15/19 [Last Taken Unknown] Aspirin/Acetaminophen/Caffeine [Excedrin Extra Strength] 2 tab PO Q6H PRN 12/21/19 [Last Taken Unknown] Bisacodyl 10 mg RC DAILY PRN 12/21/19 [Last Taken Unknown] Calcium Carbonate/Vitamin D3 [Calcium 500 mg Chewable Tablet] 2 ea PO DAILY 12/21/19 [Last Taken Unknown] Flaxseed Oil [Flax Seed Oil] 1,000 mg PO DAILY PRN 12/21/19 [Last Taken Unknown] Loperamide HCl [Imodium] 2 mg PO PRN PRN 12/21/19 [Last Taken Unknown] Potassium Chloride 40 meq PO DAILY 12/21/19 [Last Taken Unknown] carBAMazepine [Tegretol Xr] 400 mg PO BID 12/21/19 [Last Taken Unknown] Saccharomyces Boulardii [Florastor] 250 mg PO BID #60 cap 12/23/19 [Last Taken Unknown] - History of Present History Narrative: This patient is a 59-year-old female who arrived by ambulance. She is from a care facility. She reportedly had low blood pressure. She was then given some fluids and it was felt that she had crackles in her lungs. There is also mention of mental status change. The patient knows that she is in the hospital but does not know why she is here. She admits to being short of breath on questioning. For most questions, she does not answer. She has a history of MS and Merritt-Danlos syndrome. She has a seizure history. She is in a care center. She has a suprapubic catheter. Review of Systems - Narrative Narrative: Unreliable. Medical History (Last Reviewed 01/27/20 @ 13:40 by Josiah Tyson MD) Biceps tendinitis of left shoulder (Chronic) History of UTI (Acute) Trochanteric bursitis (Acute) Shoulder pain (Chronic) Shoulder impingement (Chronic) Scoliosis (Chronic) Neurogenic bladder (Chronic) H/O dysmenorrhea (Chronic) Multiple sclerosis (Chronic) Onset Date: 1992 Incomplete bladder emptying (Chronic) Hip pain (Chronic) GERD (gastroesophageal reflux disease) (Chronic) Frequent infections (Chronic) Merritt-Danlos syndrome (Chronic) Depression (Chronic) DDD (degenerative disc disease) (Chronic) Colon polyps (Acute) Onset Date: 12/20/10 [place] Anxiety (Chronic) Surgical History: Surgical History (Last Reviewed 01/27/20 @ 13:41 by Josiah Tyson MD) H/O breast biopsy Onset Date: 2007 stereotactic core needle biopsy of the left breast w/benign findings S/P DANIELLE-BSO Onset Date: 02/26/06 done by -Fibroids, MMR S/P colonoscopy Onset Date: 12/20/10 stereotactic core needle biopsy of the left breast w/benign findings Status post insertion of intrathecal baclofen pump Onset Date: 12/15/11 Family History: Family History (Last Reviewed 01/27/20 @ 13:41 by Josiah Tyson MD) Father , 79 COPD (chronic obstructive pulmonary disease) Hypertension Asthma Mother Hypertension Alzheimers disease Glaucoma Osteoporosis Grandmother Diabetes Social History: (Last Reviewed 01/27/20 @ 13:41 by Josiah Tyson MD) Social History: Marital status: current occupational status: disabled current occupation: Disabled Highest level of school completed/degree received: some college, no degree Service: No Tobacco: Smoking Status: Never smoker Alcohol: alcohol intake: never Substance Use: substance use type: does not use Dietary Habits: caffeine: Yes caffeine comment: occasional Type: coffee Physical Exam - Physical Exam General Appearance: Present: wd/wn, alert, no apparent distress, other - She is lying on her right side. Her head was going off the cot on arrival. Head Exam: Present: normal inspection, no evidence of injury Eye Exam: Normal inspection: bilateral Ears, Nose, Throat: Present: normal ENT inspection Neck: Present: normal inspection, supple Respiratory: Present: no respiratory distress, decreased breath sounds, other - Poor respiratory effort Cardiovascular/Chest: Present: no murmur, tachycardia Gastrointestinal/Abdominal: Present: normal bowel sounds, nondistended, soft, no organomegaly, tenderness - Diffuse.. Absent: guarding, rebound Extremity Exam: Present: other - No injury or erythema. She complains of pain with movement. Neurological Exam: Present: alert, other - She is lying on the table. She does not comply with the exam. No gross lateralizing findings. Skin Exam: Present: normal color, warm/dry Progress - Date and Time Seen: Date and Time: 01/27/20 17:31 The patient has had essentially no urine output. There is no residual in the bladder. The patient is improving mentally since receiving fluids. She says that she has not been eating or drinking. She does not say why. I spoke with Dr. Escobar, who came to the emergency room. She will keep the patient for observation. - Results and Orders Patient's Lab Results:: I have reviewed the patient's lab results. Results and Orders: Laboratory Tests 01/27/20 01/27/20 01/27/20 12:20 12:20 12:20 WBC 11.9 H RBC 4.83 Hgb 14.0 Hct 43.6 MCV 90.3 MCH 29.0 MCHC 32.1 RDW 13.6 Plt Count 330 MPV 9.0 Immature Gran % (Auto) 0.30 Immature Gran # (Auto) 0.04 H Neutrophils % 87.2 H Lymphocytes % 6.5 L Monocytes % 4.4 Eosinophils % 1.3 Basophils % 0.3 Nucleated RBC % 0.0 Neutrophils # 10.4 H Lymphocytes # 0.77 L Monocytes # 0.5 Eosinophils # 0.2 Absolute Basophils 0.0 Sodium 133 Plasma Sodium 133 Potassium 3.2 L Chloride 100 Carbon Dioxide 24.0 Anion Gap 12.2 BUN 13 D Creatinine 0.53 Est GFR (Non-Af Amer) 125 BUN/Creatinine Ratio 24.5 H Random Glucose 124 H Lactic Acid, Venous 1.6 Calcium 9.0 Calcium Adj for Albumin 9.6 Total Bilirubin 0.5 AST 17 ALT 17 L Alkaline Phosphatase 106 C-Reactive Prot, Quant 19.6 H Total Protein 6.3 Albumin 2.9 L Lipase 37 L Urine Color Urine Appearance Urine pH Ur Specific [place] Urine Protein Urine Glucose (UA) Urine Ketones Urine Blood Urine Nitrate Urine Bilirubin Prot Sulfosalicylic Acd Urine Urobilinogen Ur Leukocyte Esterase Urine RBC Urine WBC Ur Epithelial Cells Urine Bacteria Urine Culture Comments 01/27/20 12:28 WBC RBC Hgb Hct MCV MCH MCHC RDW Plt Count MPV Immature Gran % (Auto) Immature Gran # (Auto) Neutrophils % Lymphocytes % Monocytes % Eosinophils % Basophils % Nucleated RBC % Neutrophils # Lymphocytes # Monocytes # Eosinophils # Absolute Basophils Sodium Plasma Sodium Potassium Chloride Carbon Dioxide Anion Gap BUN Creatinine Est GFR (Non-Af Amer) BUN/Creatinine Ratio Random Glucose Lactic Acid, Venous Calcium Calcium Adj for Albumin Total Bilirubin AST ALT Alkaline Phosphatase C-Reactive Prot, Quant Total Protein Albumin Lipase Urine Color Yellow Urine Appearance Cloudy Urine pH 6.0 Ur Specific [place] 1.025 Urine Protein 100 H Urine Glucose (UA) Negative Urine Ketones Negative Urine Blood 250 H Urine Nitrate Positive H Urine Bilirubin Negative Prot Sulfosalicylic Acd 2+ H Urine Urobilinogen Normal Ur Leukocyte Esterase 100 H Urine RBC >50 H Urine WBC >50 H Ur Epithelial Cells 5-10 H Urine Bacteria 3+ H Urine Culture Comments Culture to follow - Vital Signs Patient's Vital Signs:: I have reviewed the patient's vital signs. - EKG EKG #1 EKG read: Interp. by me EKG Comments: 1224 Sinus tachycardia Rate 115 ST and T wave abnormalities, both lateral and inferior, consider ischemia. No significant change from 09/19/2019. - X-Ray X-Ray #1 X-Ray: chest Interpretation: Reviewed by me X-ray Comments: Chest Single View *~ Exam Date: 01/27/2020 13:20 Ordering Physician: Josiah Tyson MD HISTORY: SOB, tachycardic, hypertensive ONE VIEW CHEST Comparison: 09/19/2019, 06/28/2019 Technique: A single portable semierect AP view of the chest were obtained. The examination is obliqued. Findings: The cardiac silhouette is within normal limits of size. The mediastinum and hilum are with in normal limits. Again seen is a left subclavian Mediport catheter distal tip located superior vena cava. The left lung field is clear. Again seen is parenchymal density in the right lung base, which most likely reflects atelectasis or scar . IMPRESSION: 1. LEFT SUBCLAVIAN MEDIPORT CATHETER. 2. ATELECTASIS VERSUS SCAR IN THE LEFT LUNG BASE; A SUBTLE INFILTRATE CANNOT BE TOTALLY EXCLUDED. Electronically signed by Alec Stoddard M.D.. Departure Clinical Impression: Decreased urine output, Hypotension, Tachycardia - Departure Disposition: Still a patient Condition: Stable Referrals: Laurence Escobar MD [Primary Care Provider] -
[2020-01-27 12:31] LABS: Hematocrit 43.6 % (37.0-47.0); Mean Cell Volume 90.3 fl (78-100); Mean Corpuscular Hgb Conc 32.1 g/dl (32-36); Neutrophil # 10.4 K/mm3 (1.3-6.0); Neutrophil % 87.2 % (42-75.0); Platelet Count 330 K/mm3 (150-450); Red Blood Count 4.83 M/mm3 (4.2-5.4); Red Cell Distribution Width 13.6 % (11.5-14.0); White Blood Count 11.9 K/mm3 (4.0-10.5)
[2020-01-27 12:41] LABS: Albumin * 2.9 gm/dl (3.4-5.0); Anion Gap 12.2 mmol/L (6.8-13.8); BUN/Creatinine Ratio 24.5 (9.0-21.6); Bilirubin, Total 0.5 mg/dL (0.0-1.1); Ca. Corrected For Albumin 9.6 mg/dL (8.4-10.2); Potassium 3.2 mmol/L (3.4-4.6); Total Protein 6.3 gm/dL (6.2-8.2)
[2020-01-27 13:06] LABS: CRP 19.6 mg/dL (0.0-0.9)
[2020-01-27 15:16] LABS: Urine Bilirubin Negative (NEGATIVE); Urine Blood 250 /ul (NEGATIVE); Urine Ketone Negative (NEGATIVE); Urine Protein 100 mg/dL (NEGATIVE); Urine Specific Gravity 1.025 SP.GR. (1.005-1.010); Urine Urobilinogen Normal (NORMAL)
[2020-01-27 15:25] LABS: Urine Appearance Cloudy (CLEAR); Urine Bacteria 3+; Urine Color Yellow; Urine Nitrite Positive (NEGATIVE); Urine RBC >50 /hpf (0-5); Urine WBC >50 /hpf (0-5)
--- NOTE | 2020-01-27 17:32 | HP ---
Chief Complaint - Chief Complaint Date of Service: 01/27/20 Time of Service: 16:58 Chief Complaint: Altered mental status History of Present Illness: 59-year-old female with a past medical history of multiple sclerosis, neurogenic bladder, suprapubic catheter, degenerative disc disease, anxiety, GERD, scoliosis, shoulder impingement presents from a [facility] with complaints of altered mental status x1 day. The nursing staff also reported decreased urine output. The patient reports that she has not been eating and drinking well. She was brought to the emergency room and found to have tachycardia with a heart rate of 120s, blood pressure 85/52 (her blood pressure runs low normally 80s to 90 systolic), O2 sat of 94% on room air. Blood work shows potassium of 3.2, mild leukocytosis of 11.9, normal renal function, lactic acid of 1.6. She has received 2 L of fluid in the emergency room and the ER physician said her mentation has improved with the fluid. She will be admitted for observation for altered mental status and decreased urine output. Medical History (Last Reviewed 01/27/20 @ 13:40 by Josiah Tyson MD) Biceps tendinitis of left shoulder (Chronic) History of UTI (Acute) Trochanteric bursitis (Acute) Shoulder pain (Chronic) Shoulder impingement (Chronic) Scoliosis (Chronic) Neurogenic bladder (Chronic) H/O dysmenorrhea (Chronic) Multiple sclerosis (Chronic) Onset Date: 1992 Incomplete bladder emptying (Chronic) Hip pain (Chronic) GERD (gastroesophageal reflux disease) (Chronic) Frequent infections (Chronic) Merritt-Danlos syndrome (Chronic) Depression (Chronic) DDD (degenerative disc disease) (Chronic) Colon polyps (Acute) Onset Date: 12/20/10 [place] Anxiety (Chronic) Surgical History: Surgical History (Last Reviewed 01/27/20 @ 13:41 by Josiah Tyson MD) H/O breast biopsy Onset Date: 2007 stereotactic core needle biopsy of the left breast w/benign findings S/P DANIELLE-BSO Onset Date: 02/26/06 done by -Fibroids, MMR S/P colonoscopy Onset Date: 12/20/10 stereotactic core needle biopsy of the left breast w/benign findings Status post insertion of intrathecal baclofen pump Onset Date: 12/15/11 Family History: Family History (Last Reviewed 01/27/20 @ 13:41 by Josiah Tyson MD) Father , 79 COPD (chronic obstructive pulmonary disease) Hypertension Asthma Mother Hypertension Alzheimers disease Glaucoma Osteoporosis Grandmother Diabetes Social History: (Last Reviewed 01/27/20 @ 13:41 by Josiah Tyson MD) Social History: Marital status: current occupational status: disabled current occupation: Disabled Highest level of school completed/degree received: some college, no degree Service: No Tobacco: Smoking Status: Never smoker Alcohol: alcohol intake: never Substance Use: substance use type: does not use Dietary Habits: caffeine: Yes caffeine comment: occasional Type: coffee Review Of Systems (GEN) - Review of Systems Generalized/Overall Review: Absent: Fever Respiratory: Present: Shortness of Breath Cardiac: Absent: Chest Pain Abdominal: Absent: Abdominal Pain Misc: All systems neg except as marked Immunizations: IMMUNIZATION HX Immunizations Up to Date No History of Influenza Vaccine No Hx Pneumococcal Vaccination No Allergies/Adverse Reactions: Allergies Allergy/AdvReac Type Severity Reaction Status Date / Time modafinil [From Provigil] Allergy Intermediate Hives Verified 01/27/20 12:07 adhesive Allergy Mild Other Verified 01/27/20 12:07 Sulfa (Sulfonamide Allergy Mild Hives Verified 01/27/20 12:07 Antibiotics) [Sulfa(Sulfonamide Antibiotics)] lactose AdvReac stomach Verified 01/27/20 12:07 issues Home Medications: HOME MEDICATIONS Gabapentin [Neurontin] 1,200 mg PO BID 07/13/14 [Last Taken 05/01/15 08:00] Glycerin/Propylene Glycol [Artificial Tears] 1 drp EACHEYE Q1H PRN 05/14/18 [Last Taken Unknown] ibuprofen 800 mg tablet 800 mg PO BID PRN #60 tab 06/02/19 [Last Taken Unknown] Acetaminophen 650 mg PO Q4H PRN MDD 3gm 06/28/19 [Last Taken Unknown] Baclofen 20 mg PO HS 06/28/19 [Last Taken Unknown] topiramate 100 mg tablet 100 mg PO DAILY 07/06/19 [Last Taken Unknown] topiramate 50 mg tablet 50 mg PO 1100,1630 07/06/19 [Last Taken Unknown] docusate sodium 100 mg capsule 200 mg PO BID PRN 07/30/19 [Last Taken Unknown] escitalopram oxalate 20 mg tablet 40 mg PO DAILY #1 tab 07/30/19 [Last Taken Unknown] multivitamin 1 tab PO DAILY 07/30/19 [Last Taken Unknown] Baclofen 20 mg PO TID PRN 08/27/19 [Last Taken Unknown] terbinafine HCl 250 mg tablet 250 mg PO DAILY 84 Days #84 tab 11/13/19 [Last Taken Unknown] oxycodone 5 mg tablet 5 mg PO Q6H PRN #120 tab 12/15/19 [Last Taken Unknown] Aspirin/Acetaminophen/Caffeine [Excedrin Extra Strength] 2 tab PO Q6H PRN 12/21/19 [Last Taken Unknown] Bisacodyl 10 mg RC DAILY PRN 12/21/19 [Last Taken Unknown] Calcium Carbonate/Vitamin D3 [Calcium 500 mg Chewable Tablet] 2 ea PO DAILY 12/21/19 [Last Taken Unknown] Flaxseed Oil [Flax Seed Oil] 1,000 mg PO DAILY PRN 12/21/19 [Last Taken Unknown] Loperamide HCl [Imodium] 2 mg PO PRN PRN 12/21/19 [Last Taken Unknown] Potassium Chloride 40 meq PO DAILY 12/21/19 [Last Taken Unknown] carBAMazepine [Tegretol Xr] 400 mg PO BID 12/21/19 [Last Taken Unknown] Saccharomyces Boulardii [Florastor] 250 mg PO BID #60 cap 12/23/19 [Last Taken Unknown] Exam - Exam Vital Signs: Vital Signs - Last Taken Temp 36.2 C 01/27/20 11:52 Pulse 106 H 01/27/20 14:35 Resp 18 01/27/20 14:35 BP 81/47 L 01/27/20 14:35 Pulse Ox 96 01/27/20 14:35 Constitutional: Present: Alert, Oriented x3, Cooperative, Well developed, Well nourished, No distress, Middle aged ENT Exam: Present: hearing grossly normal, moist mucous membranes Eye Exam: bilateral eye: normal inspection, PERRL Neck: Present: non-tender, supple. Absent: lymphadenopathy (R), lymphadenopathy (L) Back Exam: Present: no vertebral tenderness Respiratory: Present: lungs clear, no respiratory distress, no accessory muscle use, No wheezing. Absent: crackles, rhonchi Cardiovascular/Chest: Present: normal peripheral pulses, regular rate, rhythm, no edema, no murmur Peripheral Pulses: dorsalis-pedis (R): 1+, dorsalis-pedis (L): 1+ Abdomen: Present: Normal bowel sounds, soft, nontender /Rectal: Present: Other - Suprapubic catheter in place Extremity: Present: no pedal edema Skin Exam: Present: normal color, warm/dry Neurologic: Present: alert, normal mood/affect Appearance: Present: appropriate appearance, appropriate insight Eye contact: Present: cooperative Thoughts: Present: normal thought pattern, normal mood /affect Diagnostic Studies: Abnormal Lab Results 01/27/20 01/27/20 01/27/20 Range/Units 12: 12: 12:28 WBC 11.9 H (4.0-10.5) K/mm3 Immature Gran # (Auto) 0.04 H (0.000-0.0310) K/mm3 Neutrophils % 87.2 H (42-75.0) % Lymphocytes % 6.5 L (20-51) % Neutrophils # 10.4 H (1.3-6.0) K/mm3 Lymphocytes # 0.77 L (1.5-3.5) k/mm3 Potassium 3.2 L (3.4-4.6) mmol/L BUN/Creatinine Ratio 24.5 H (9.0-21.6) Random Glucose 124 H (70-110) mg/dL ALT 17 L (19-67) U/L C-Reactive Prot, Quant 19.6 H (0.0-0.9) mg/dL Albumin 2.9 L (3.4-5.0) gm/dl Lipase 37 L (73-393) U/L Urine Protein 100 H (NEGATIVE) mg/dL Urine Blood 250 H (NEGATIVE) /ul Urine Nitrate Positive H (NEGATIVE) Prot Sulfosalicylic Acd 2+ H (0) mg/dL Ur Leukocyte Esterase 100 H (NEGATIVE) /ul Urine RBC >50 H (0-5) /hpf Urine WBC >50 H (0-5) /hpf Ur Epithelial Cells 5-10 H (0-5) /hpf Urine Bacteria 3+ H (NONE) Laboratory Results WBC 11.9 K/mm3 (4.0-10.5) H 01/27/20 12: RBC 4.83 M/mm3 (4.2-5.4) 01/27/20 12:20 Hgb 14.0 gm/dL (12.5-16.0) 01/27/20 12:20 Hct 43.6 % (37.0-47.0) 01/27/20 12:20 MCV 90.3 fl (78-100) 01/27/20 12:20 MCH 29.0 pg (27-31) 01/27/20 12:20 MCHC 32.1 g/dl (32-36) 01/27/20 12:20 RDW 13.6 % (11.5-14.0) 01/27/20 12:20 Plt Count 330 K/mm3 (150-450) 01/27/20 12:20 MPV 9.0 fl (8-12.5) 01/27/20 12:20 Immature Gran % (Auto) 0.30 % (0.001-0.429) 01/27/20 12:20 Immature Gran # (Auto) 0.04 K/mm3 (0.000-0.0310) H 01/27/20 12:20 Neutrophils % 87.2 % (42-75.0) H 01/27/20 12:20 Lymphocytes % 6.5 % (20-51) L 01/27/20 12:20 Monocytes % 4.4 % (0.0-9) 01/27/20 12:20 Eosinophils % 1.3 % (0.0-3.0) 01/27/20 12:20 Basophils % 0.3 % (0.0-1.0) 01/27/20 12:20 Nucleated RBC % 0.0 k/mm3 (0-1) 01/27/20 12:20 Neutrophils # 10.4 K/mm3 (1.3-6.0) H 01/27/20 12:20 Lymphocytes # 0.77 k/mm3 (1.5-3.5) L 01/27/20 12:20 Monocytes # 0.5 k/mm3 (0.0-1.0) 01/27/20 12:20 Eosinophils # 0.2 k/mm3 (0.0-0.7) 01/27/20 12:20 Absolute Basophils 0.0 k/mm3 (0.0-0.1) 01/27/20 12:20 Sodium 133 mmol/L (132-142) 01/27/20 12:20 Plasma Sodium 133 mmol/L (130-142) 01/27/20 12:20 Potassium 3.2 mmol/L (3.4-4.6) L 01/27/20 12:20 Chloride 100 mmol/L (97-106) 01/27/20 12:20 Carbon Dioxide 24.0 mmol/L (24-32.6) 01/27/20 12:20 Anion Gap 12.2 mmol/L (6.8-13.8) 01/27/20 12:20 BUN 13 mg/dL (3-23) D 01/27/20 12:20 Creatinine 0.53 mg/dL (0.4-1.4) 01/27/20 12:20 Est GFR (Non-Af Amer) 125 mL/min (60-130) 01/27/20 12:20 BUN/Creatinine Ratio 24.5 (9.0-21.6) H 01/27/20 12:20 Random Glucose 124 mg/dL (70-110) H 01/27/20 12:20 Lactic Acid, Venous 1.6 mmol/L (0.4-2.0) 01/27/20 12:20 Calcium 9.0 mg/dL (7.9-10.9) 01/27/20 12:20 Calcium Adj for Albumin 9.6 mg/dL (8.4-10.2) 01/27/20 12:20 Total Bilirubin 0.5 mg/dL (0.0-1.1) 01/27/20 12:20 AST 17 U/L (0-48) 01/27/20 12:20 ALT 17 U/L (19-67) L 01/27/20 12:20 Alkaline Phosphatase 106 U/L (50-170) 01/27/20 12:20 C-Reactive Prot, Quant 19.6 mg/dL (0.0-0.9) H 01/27/20 12:20 Total Protein 6.3 gm/dL (6.2-8.2) 01/27/20 12:20 Albumin 2.9 gm/dl (3.4-5.0) L 01/27/20 12:20 Lipase 37 U/L (73-393) L 01/27/20 12:20 Urine Color Yellow 01/27/20 12:28 Urine Appearance Cloudy (CLEAR) 01/27/20 12: Urine pH 6.0 pH (5.0-7.0) 01/27/20 12: Ur Specific [place] 1.025 SP.GR. (1.005-1.010) 01/27/20 12:28 Urine Protein 100 mg/dL (NEGATIVE) H 01/27/20 12:28 Urine Glucose (UA) Negative mg/dL (NEGATIVE) 01/27/20 12:28 Urine Ketones Negative mg/dL (NEGATIVE) 01/27/20 12:28 Urine Blood 250 /ul (NEGATIVE) H 01/27/20 12:28 Urine Nitrate Positive (NEGATIVE) H 01/27/20 12:28 Urine Bilirubin Negative mg/dl (NEGATIVE) 01/27/20 12:28 Prot Sulfosalicylic Acd 2+ mg/dL (0) H 01/27/20 12:28 Urine Urobilinogen Normal EU/dl (NORMAL) 01/27/20 12:28 Ur Leukocyte Esterase 100 /ul (NEGATIVE) H 01/27/20 12:28 Urine RBC >50 /hpf (0-5) H 01/27/20 12:28 Urine WBC >50 /hpf (0-5) H 01/27/20 12:28 Ur Epithelial Cells 5-10 /hpf (0-5) H 01/27/20 12:28 Urine Bacteria 3+ (NONE) H 01/27/20 12: Urine Culture Comments Culture to follow 01/27/20 12:28 Assessment/Plan - Narrative Narrative: 59-year-old female with a past medical history of multiple sclerosis, neurogenic bladder, suprapubic catheter, degenerative disc disease, anxiety, GERD, scoliosis, shoulder impingement presents from a [facility] with complaints of altered mental status x1 day. The nursing staff also reported decreased urine output. The patient reports that she has not been eating and drinking well. She was brought to the emergency room and found to have tachycardia with a heart rate of 120s, blood pressure 85/52 (her blood pressure runs low normally 80s to 90 systolic), O2 sat of 94% on room air. Blood work shows potassium of 3.2, mild leukocytosis of 11.9, normal renal function, lactic acid of 1.6. She has received 2 L of fluid in the emergency room and the ER physician said her mentation has improved with the fluid. She will be admitted for observation for altered mental status and decreased urine output. Plan #1 Continue with IV normal saline at 70 cc/h #2 resume home medications for comorbidities #3 strict I's and O's #4 CBC and CMP in the morning - Assessment/Plan (1) Altered mental status, unspecified Problem: Resolved Qualifiers: (2) Decreased urine output Problem: Acute (3) Decreased oral intake Problem: Resolved (4) Tachycardia Problem: Acute (5) Suprapubic catheter Problem: Acute (6) Shoulder pain Problem: Chronic Qualifiers: (7) Scoliosis Problem: Chronic Qualifiers: (8) Neurogenic bladder Problem: Chronic (9) Multiple sclerosis Problem: Chronic (10) GERD (gastroesophageal reflux disease) Problem: Chronic (11) Merritt-Danlos syndrome Problem: Chronic (12) Depression Problem: Chronic Qualifiers: (13) DDD (degenerative disc disease) Problem: Chronic (14) Anxiety Problem: Chronic (15) Multiple sclerosis Problem: Chronic (16) Anxiety and depression Problem: Chronic
[2020-01-27] MEDS ORDERED: BISACODYL 10 MG SUPP.RECT RC PRN (17:34)
[2020-01-27] MEDS ORDERED: BACLOFEN 20 MG PO PRN (17:34)
[2020-01-27] MEDS ORDERED: oxyCODONE HCL 5 MG TABLET PO PRN (17:34)
[2020-01-27] MEDS ORDERED: GLYCERIN/PROPYLENE GLYCOL 150 DROP BTL EACHEYE PRN (17:34)
[2020-01-27] MEDS ORDERED: ACETAMINOPHEN 325 MG TABLET PO PRN (17:34)
[2020-01-27] MEDS ORDERED: NORMAL SALINE 1,000 ML IV PRN (19:20)
[2020-01-27] MEDS ORDERED: ASPIRIN/ACETAMINOPHEN/CAFFEINE 1 TAB TAB PO PRN (19:29)
[2020-01-27] MEDS ORDERED: DOCUSATE SODIUM 100 MG CAPSULE PO PRN (19:33)
[2020-01-27] MEDS ORDERED: LOPERAMIDE HCL 2 MG CAPSULE PO PRN (19:37)
[2020-01-27] MEDS ORDERED: BACLOFEN 10 MG TABLET PO PRN (19:45)
[2020-01-27] MEDS ORDERED: carBAMazepine 200 MG TAB.SR.12H PO SCH (21:00)
[2020-01-27] MEDS ORDERED: BACLOFEN 10 MG TABLET PO SCH (21:00)
[2020-01-27] MEDS: SACCHAROMYCES BOULARDII 250 MG CAPSULE PO SCH (21:18)
[2020-01-27] MEDS: GABAPENTIN 600 MG TABLET PO SCH (21:24)
[2020-01-27] MEDS ORDERED: carBAMazepine 200 MG TABLET ONE (21:40)
[2020-01-27] MEDS ORDERED: carBAMazepine 200 MG TABLET PO ONE (21:56)
[2020-01-28] MEDS ORDERED: IBUPROFEN 800 MG TABLET PO PRN (06:16)
[2020-01-28 06:34] LABS: Hematocrit 38.1 % (37.0-47.0); Hemoglobin 12.1 gm/dL (12.5-16.0); Mean Cell Volume 93.4 fl (78-100); Mean Corpuscular Hemoglobin 29.7 pg (27-31); Mean Corpuscular Hgb Conc 31.8 g/dl (32-36); Mean Platelet Volume 9.2 fl (8-12.5); Neutrophil # 9.2 K/mm3 (1.3-6.0); Neutrophil % 80.7 % (42-75.0); Platelet Count 253 K/mm3 (150-450); Red Blood Count 4.08 M/mm3 (4.2-5.4); Red Cell Distribution Width 13.7 % (11.5-14.0); White Blood Count 11.4 K/mm3 (4.0-10.5)
[2020-01-28 06:50] LABS: Albumin * 2.7 gm/dl (3.4-5.0); Anion Gap 13.5 mmol/L (6.8-13.8); BUN/Creatinine Ratio 26.5 (9.0-21.6); Bilirubin, Total 0.3 mg/dL (0.0-1.1); Ca. Corrected For Albumin 8.8 mg/dL (8.4-10.2); Calcium * 8.1 mg/dL (7.9-10.9); Carbon Dioxide 21.8 mmol/L (24-32.6); Potassium 3.3 mmol/L (3.4-4.6); Total Protein 5.2 gm/dL (6.2-8.2)
[2020-01-28] MEDS ORDERED: TOPIRAMATE 50 MG TABLET PO SCH ×2 (09:00→11:00)
[2020-01-28] MEDS ORDERED: MULTIVITAMINS 1 CAP CAPSULE PO SCH (09:00)
[2020-01-28] MEDS ORDERED: ESCITALOPRAM OXALATE 10 MG TAB PO SCH (09:00)
[2020-01-28] MEDS ORDERED: carBAMazepine 200 MG TABLET PO SCH (09:00)
[2020-01-28] MEDS ORDERED: POTASSIUM CHLORIDE 20 MEQ TABLET.SA PO SCH (09:00)
[2020-01-28] MEDS ORDERED: TERBINAFINE HCL 250 MG TABLET PO SCH (09:00)
[2020-01-28] MEDS ORDERED: CALCIUM CARBONATE/VITAMIN D3 1 TAB TABLET PO SCH (09:00)
[2020-01-28] MEDS: SACCHAROMYCES BOULARDII 250 MG CAPSULE PO SCH (09:01)
[2020-01-28] MEDS: GABAPENTIN 600 MG TABLET PO SCH (09:02)
--- NOTE | 2020-01-28 11:27 | DS ---
(1) Altered mental status, unspecified Problem: Resolved Qualifiers: (2) Decreased urine output Problem: Acute (3) Decreased oral intake Problem: Resolved (4) Tachycardia Problem: Acute (5) Suprapubic catheter Problem: Acute (6) Shoulder pain Problem: Chronic Qualifiers: (7) Scoliosis Problem: Chronic Qualifiers: (8) Neurogenic bladder Problem: Chronic (9) Multiple sclerosis Problem: Chronic (10) GERD (gastroesophageal reflux disease) Problem: Chronic (11) Merritt-Danlos syndrome Problem: Chronic (12) Depression Problem: Chronic Qualifiers: (13) DDD (degenerative disc disease) Problem: Chronic (14) Anxiety Problem: Chronic (15) Multiple sclerosis Problem: Chronic (16) Anxiety and depression Problem: Chronic Hospital Course: 59-year-old female with a past medical history of multiple sclerosis, neurogenic bladder, suprapubic catheter, degenerative disc disease, anxiety, GERD, scoliosis, shoulder impingement presents from a [facility] with complaints of altered mental status x1 day. The nursing staff also reported decreased urine output. The patient reports that she has not been eating and drinking well. She was brought to the emergency room and found to have tachycardia with a heart rate of 120s, blood pressure 85/52 (her blood pressure runs low normally 80s to 90 systolic), O2 sat of 94% on room air. Blood work shows potassium of 3.2, mild leukocytosis of 11.9, normal renal function, lactic acid of 1.6. She has received 2 L of fluid in the emergency room and the ER physician said her mentation has improved with the fluid. She will be admitted for observation for altered mental status and decreased urine output. She responded well to IV fluid hydration. Mentation has normalized and urine output has improved. She is stable to be discharged back to [facility] today. Procedures Performed: none Results and Findings: Pending Mircobiology Results 01/27/20 12:28 Urine,Catheterized Urine Culture - Preliminary Gram Negative Bacilli Lab Pending Results 01/27/20 12:20: WBC 11.9 H, RBC 4.83, Hgb 14.0, Hct 43.6, MCV 90.3, MCH 29.0, MCHC 32.1, RDW 13.6, Plt Count 330, MPV 9.0, Immature Gran % (Auto) 0.30, Immature Gran # (Auto) 0.04 H, Neutrophils % 87.2 H, Lymphocytes % 6.5 L, Monocytes % 4.4, Eosinophils % 1.3, Basophils % 0.3, Nucleated RBC % 0.0, Ne utrophils # 10.4 H, Lymphocytes # 0.77 L, Monocytes # 0.5, Eosinophils # 0.2, Absolute Basophils 0.0 01/27/20 12:20: Sodium 133, Plasma Sodium 133, Potassium 3.2 L, Chloride 100, Carbon Dioxide 24.0, Anion Gap 12.2, BUN 13 D, Creatinine 0.53, Est GFR (Non-Af Amer) 125, BUN/Creatinine Ratio 24.5 H, Random Glucose 124 H, Calcium 9.0, Calcium Adj for Albumin 9.6, Total Bilirubin 0.5, AST 17, ALT 17 L, Alkaline Phosphatase 106, C-Reactive Prot, Quant 19.6 H, Total Protein 6.3, Albumin 2.9 L, Lipase 37 L 01/27/20 12:20: Lactic Acid, Venous 1.6 01/27/20 12:28: Urine Color Yellow, Urine Appearance Cloudy, Urine pH 6.0, Ur Specific [place] 1.025, Urine Protein 100 H, Urine Glucose (UA) Negative, Urine Ketones Negative, Urine Blood 250 H, Urine Nitrate Positive H, Urine Bilirubin Negative, Prot Sulfosalicylic Acd 2+ H, Urine Urobilinogen Normal, Ur Leukocyte Esterase 100 H, Urine RBC >50 H, Urine WBC >50 H, Ur Epithelial Cells 5-10 H, Urine Bacteria 3+ H, Urine Culture Comments Culture to follow 01/27/20 17:31: SARS-CoV-2 (PCR) Not detected 01/28/20 06:10: WBC 11.4 H, RBC 4.08 L, Hgb 12.1 L, Hct 38.1, MCV 93.4, MCH 29.7, MCHC 31.8 L, RDW 13.7, Plt Count 253, MPV 9.2, Immature Gran % (Auto) 0.30, Immature Gran # (Auto) 0.03, Neutrophils % 80.7 H, Lymphocytes % 9.8 L, Monocytes % 4.7, Eosinophils % 3.7 H, Basophils % 0.8, Nucleated RBC % 0.0, Neutrophils # 9.2 H, Lymphocytes # 1.12 L, Monocytes # 0.5, Eosinophils # 0.4, Absolute Basophils 0.1 01/28/20 06:10: Sodium 137, Plasma Sodium 137, Potassium 3.3 L, Chloride 105, Carbon Dioxide 21.8 L, Anion Gap 13.5, BUN 9, Creatinine 0.34 L, Est GFR (Non-Af Amer) 209 H D, BUN/Creatinine Ratio 26.5 H, Random Glucose 89, Calcium 8.1, Calcium Adj for Albumin 8.8, Total Bilirubin 0.3, AST 17, ALT 14 L, Alkaline Phosphatase 93, Total Protein 5.2 L, Albumin 2.7 L Discharge Location: [facility] Disposition: Intermediate Care Facility [facility] Condition: Stable Level of Care: ICF Discharge Activity: Activity as tolerated Discharge Diet: General/regular food Complete Home Medications List: Complete Home Medication List: Gabapentin [Neurontin] 1,200 mg PO BID 07/13/14 Glycerin/Propylene Glycol [Artificial Tears] 1 drp EACHEYE Q1H PRN 05/14/18 ibuprofen 800 mg tablet 800 mg PO BID PRN #60 tab 06/02/19 Acetaminophen 650 mg PO Q4H PRN MDD 3gm 06/28/19 Baclofen 20 mg PO HS 06/28/19 topiramate 100 mg tablet 100 mg PO DAILY 07/06/19 topiramate 50 mg tablet 50 mg PO 1100,1630 07/06/19 docusate sodium 100 mg capsule 200 mg PO BID PRN 07/30/19 escitalopram oxalate 20 mg tablet 40 mg PO DAILY #1 tab 07/30/19 multivitamin 1 tab PO DAILY 07/30/19 Baclofen 20 mg PO TID PRN 08/27/19 terbinafine HCl 250 mg tablet 250 mg PO DAILY 84 Days #84 tab 11/13/19 oxycodone 5 mg tablet 5 mg PO Q6H PRN #120 tab 12/15/19 Aspirin/Acetaminophen/Caffeine [Excedrin Extra Strength] 2 tab PO Q6H PRN 12/21/19 Bisacodyl 10 mg RC DAILY PRN 12/21/19 Calcium Carbonate/Vitamin D3 [Calcium 500 mg Chewable Tablet] 2 ea PO DAILY 12/21/19 Flaxseed Oil [Flax Seed Oil] 1,000 mg PO DAILY PRN 12/21/19 Loperamide HCl [Imodium] 2 mg PO PRN PRN 12/21/19 Potassium Chloride 40 meq PO DAILY 12/21/19 carBAMazepine [Tegretol Xr] 400 mg PO BID 12/21/19 Saccharomyces Boulardii [Florastor] 250 mg PO BID #60 cap 12/23/19 Loperamide HCl [Imodium A-D] 4 mg PO PRN PRN MDD 8 MG 01/27/20
[2020-01-28 11:37] VITALS: BP 115/62
== END 2020-01-28 12:59 ==
LOC: MS 11:51 → ER 11:51 → MS 19:00
PROVIDERS: ADMIT Internal Medicine; ATTEND Internal Medicine